=== PATIENT | female | born 1965 | race Caucasian/White ===

== ENCOUNTER 2016-04-27 09:45 | Emergency (ER) | payer SELFPAY ==
[2016-04-27] MEDS ORDERED: IPRATROPIUM 0.5MG/ALBUTEROL 2.5MG INH SOL UD 3ML (DUONEB)(J7620) As Ordered ONE (10:16)
[2016-04-27 10:49] LABS: BASO # 0.1 K/mm3 (0.0-0.2); BASO % 0.7 % (0.0-1.0); EOS # 0.2 K/mm3 (0.0-0.50); EOS % 2.2 % (0.0-3.0); LARGE UNSTAINED CELL # 0.1 K/mm3 (0.0-0.4); LARGE UNSTAINED CELL % 1.3 % (0.0-4.0); LYMPH % 18.5 % (24.0-44.0); MEAN CORPUSCULAR HEMOGLOBIN 29.8 pg (27.0-33.0); MEAN CORPUSCULAR HGB CONC 32.6 g/dl (32.0-36.5); MEAN CORPUSCULAR VOLUME 91.4 fl (80.0-96.0); MONO # 0.5 K/mm3 (0.0-0.8); MONO % 4.3 % (0.0-5.0); PLATELET COUNT, AUTOMATED 329 k/mm3 (150-450); RED CELL DISTRIBUTION WIDTH 12.2 % (11.5-14.5); WHITE BLOOD COUNT 10.9 K/mm3 (4.0-10.0)
[2016-04-27 11:06] LABS: ANION GAP 9 MEQ/L (8-16); BLOOD UREA NITROGEN 14 MG/DL (7-18); CALCIUM LEVEL 10.1 MG/DL (8.5-10.1); CARBON DIOXIDE LEVEL 30 MEQ/L (21-32); CHLORIDE LEVEL 103 MEQ/L (98-107); CREATININE FOR GFR 0.79 MG/DL (0.55-1.02); GLOMERULAR FILTRATION RATE > 60.0 (>58); GLUCOSE, FASTING 136 MG/DL (70-105); POTASSIUM SERUM 3.6 MEQ/L (3.5-5.1); SODIUM LEVEL 142 MEQ/L (136-145)
[2016-04-27] MEDS ORDERED: methylPREDNISolone INJ 125 MG/2 ML VIAL (J2930) As Ordered ONE (11:21)
--- NOTE | 2016-04-27 12:50 | EDDOCDS ---
Nurse's Notes [facility] Name: Adriana Sanchez Age: 50 yrs Sex: Female : 1965 Arrival Date: 04/27/2016 Time: 09:45 Bed I8 / 16 Private MD: No Pcp Diagnosis: Moderate persistent asthma with (acute) exacerbation-vs possible COPD exaccerbation Presentation: 04/27 09:49 Presenting complaint: Patient states: she has had dizziness, wheezing, shortness of kcs breath an difficulty breathing for 2 years. Borrows her sisters inhalers. Has not been treated because she harding not have insurance and cannot afford medical care. Adult Sepsis Screening: The patient does not have new or worsening altered mentation. Patient's respiratory rate is less than 22. Systolic blood pressure is greater than 100. Patient has a qSOFA score of 0- Negative Sepsis Screen. Suicide/Homicide risk assessment- the patient denies having any suicidal and/or homicidal ideations and does not present with any other emotional, behavioral or mental health complaints. Status: Patient is not a automatic teller machine servicer or dependent. Transition of care: patient was not received from another setting of care. 09:49 Acuity: PRESLEY Level 3 kcs 09:49 Method Of Arrival: Wheelchair kcs Triage Assessment: 09:52 General: Appears comfortable, well developed, well nourished, well groomed, Behavior is kcs anxious, cooperative, pleasant. Pain: Location: chest Pain currently is 6 out of 10 on a pain scale. Pain: Quality of pain is described as tight. Pt Declines HIV testing. Neurological: Level of Consciousness is awake, alert. Respiratory: Airway is patent Respiratory effort is labored, Respiratory pattern is regular, symmetrical. Derm: Skin is intact, is healthy with good turgor, Skin is dry, Skin is normal. 12:41 Respiratory: Onset: The symptoms/episode began/occurred 2 YEARS. hs1 INTERNIST: 09:52 LMP N/A - Post-menopause kcs Historical: - Allergies: No known drug Allergies; - Home Meds: 1. Albuterol Inhl 2 puffs 4 times per day and as needed - PMHx: Asthma; Arthritis; - PSHx: ; Tonsillectomy; Adenoidectomy; - Social history: Smoking status: Patient uses tobacco products, light tobacco smoker. No barriers to communication noted, The patient speaks fluent Mozambican. - Family history: No immediate family members are acutely ill. - : The pt / caregiver states he / she is not on anticoagulants. Home medication list is obtained from the patient. - Exposure Risk Screening:: None identified. Screenin:28 Screening information is obtained from the patient. Fall risk: No risks identified. hs1 Assistance ADL's: requires no assistance with activities of daily living. Abuse/DV Screen: The patient / caregiver reports he/she is: not in a situation that causes fear, pain or injury. Nutritional screening: No deficits noted. Advance Directives: There is no active DNR order. home support is adequate. Assessment: 11:29 General: Behavior is appropriate for age, cooperative. Pain: Denies pain. hs1 Cardiovascular: Rhythm is sinus tachycardia No ectopy. Cardiovascular: Capillary refill < 3 seconds Heart tones S1 S2 present Edema is absent. Cardiovascular: Chest pain is denied. Respiratory: Airway is patent Respiratory effort is even, unlabored, Respiratory pattern is regular, symmetrical, Respiratory: Reports shortness of breath on exertion pt reports has gotten better since breathing treatments. 12:26 Reassessment: Patient appears in no apparent distress at this time. Patient states hs1 feeling better. Patient states symptoms have improved. Adult Sepsis Screening: The patient does not have new or worsening altered mentation. Patient's respiratory rate is less than 22. Systolic blood pressure is greater than 100. Patient has a qSOFA score of 0- Negative Sepsis Screen. Respiratory: Airway is patent Respiratory effort is even, unlabored, Respiratory pattern is regular, symmetrical. 12:39 Reassessment: Patient appears in no apparent distress at this time. Patient states hs1 feeling better. Patient states symptoms have improved. Vital Signs: 09:47 BP 147 / 89; Pulse 136; Resp 22; Temp 97.6; Pulse Ox 96% ; Weight 79.38 kg; Height 5 cmb ft. 3 in. (160.02 cm); Pain 5/10; 11:13 BP 127 / 71 (auto/); hs1 11:14 Pulse 116 MON; Pulse Ox 95% ; hs1 11:28 BP 120 / 71 (auto/); hs1 11:28 Pulse 114 MON; Pulse Ox 95% ; hs1 11:43 BP 116 / 65 (auto/); hs1 11:43 Pulse 120 MON; Pulse Ox 93% ; hs1 11:58 BP 128 / 69 (auto/); hs1 11:58 Pulse 118 MON; Pulse Ox 93% ; hs1 12:39 BP 143 / 84; Pulse 117; Resp 18; Temp 98.3(O); Pulse Ox 95% ; Pain 0/10; hs1 09:47 Body Mass Index 31.00 (79.38 kg, 160.02 cm) cmb Vitals: 09:47 Log In Time: April 27, 2016 at 09:45. cmb ED Course: 09:46 Patient visited by Yuki Ray. cmb 09:46 Patient moved to Waiting cmb 09:47 No Pcp is Private Physician. cmb 09:49 Patient moved to Pre RCE cmb 09:51 Triage Initiated kcs 09:55 Patient moved to Triage 2 kcs 10:00 Maximino Fenton PA-C is PHCP. ar2 10:00 Justine Zamorano MD is Attending Physician. ar2 10:00 Patient visited by Maximino Fenton PA-C. ar2 10:15 Patient moved to PR2 / 26 bcj 10:24 MED Profile Sent. kcs 10:24 CBC with Diff Sent. kcs 10:57 EKG done. (by ED staff). Reviewed by Maximino Fenton PA-C. ar3 11:00 Inserted saline lock: 20 gauge in left antecubital area and blood collected. The hs1 patient tolerated the procedure well. 11:07 Patient moved to I8 / 16 bcj 11:20 Patient visited by Dianne Roman RN. hs1 11:20 D-Dimer Quant Sent. hs1 11:53 Patient name changed from Adriana\S\J\S\Faibish\S\ to Adriana\S\Mykel\S\Faibish. EDMS 11:57 [place] [place] Agreement was scanned into [employer] and attached to record. lg 12:26 Patient visited by Dianne Roman RN. hs1 12:37 [facility] is Referral Physician. ar2 12:40 The patient / caregiver is instructed regarding the plan of care and ED course. hs1 12:40 Discontinued IV lock intact, bleeding controlled, pressure dressing applied, No hs1 redness/swelling at site. No procedures done that require assistance. Administered Medications: 10:10 Drug: Albuterol-Ipratropium 1 neb [ipratropium-albuterol 0.5 mg-3 mg(2.5 mg base)/3 mL kt1 nebulization soln (1 neb)] Route: Nebulizer; 10:36 Drug: Albuterol-Ipratropium 1 neb [ipratropium-albuterol 0.5 mg-3 mg(2.5 mg base)/3 mL kt1 nebulization soln (1 neb)] Route: Nebulizer; 10:45 Drug: Albuterol-Ipratropium 1 neb [ipratropium-albuterol 0.5 mg-3 mg(2.5 mg base)/3 mL kt1 nebulization soln (1 neb)] Route: Nebulizer; 11:28 Drug: Solu-MEDROL 125 mg [Solu-Medrol 500 mg intravenous solution (125 mg)] Route: IVP; hs1 Site: left antecubital; RT: 10:05 Patient Effort moderate Pre Peak Flow: 150. kt1 10:10 Initial Med Neb Given as ordered Patient was instructed and evaluated on procedure. kt1 Respiratory: Breath sounds are diminished bilaterally. 10:29 Patient Education: pre peak flow 69% perdicted. kt1 10:37 Subsequent Med Neb Given as ordered. Respiratory: Breath sounds are diminished kt1 bilaterally. 10:45 Post Peak Flow: 150. kt1 Order Results: Lab Order: CBC with Diff; SPEC'M 04/27/16 10:23 Test: WHITE BLOOD COUNT; Value: 10.9; Range: 4.0-10.0; Abnormal: Above high normal; Units: K/mm3; Status: F Test: RED BLOOD COUNT; Value: 4.89; Range: 4.00-5.40; Units: M/mm3; Status: F Test: HEMOGLOBIN; Value: 14.6; Range: 12.0-16.0; Units: g/dl; Status: F Test: HEMATOCRIT; Value: 44.7; Range: 36.0-47.0; Units: %; Status: F Test: MEAN CORPUSCULAR VOLUME; Value: 91.4; Range: 80.0-96.0; Units: fl; Status: F Test: MEAN CORPUSCULAR HEMOGLOBIN; Value: 29.8; Range: 27.0-33.0; Units: pg; Status: F Test: MEAN CORPUSCULAR HGB CONC; Value: 32.6; Range: 32.0-36.5; Units: g/dl; Status: F Test: RED CELL DISTRIBUTION WIDTH; Value: 12.2; Range: 11.5-14.5; Units: %; Status: F Test: PLATELET COUNT, AUTOMATED; Value: 329; Range: 150-450; Units: k/mm3; Status: F Test: NEUTROPHILS %; Value: 73.0; Range: 36.0-66.0; Abnormal: Above high normal; Units: %; Status: F Test: LYMPH %; Value: 18.5; Range: 24.0-44.0; Abnormal: Below low normal; Units: %; Status: F Test: MONO %; Value: 4.3; Range: 0.0-5.0; Units: %; Status: F Test: EOS %; Value: 2.2; Range: 0.0-3.0; Units: %; Status: F Test: BASO %; Value: 0.7; Range: 0.0-1.0; Units: %; Status: F Test: LARGE UNSTAINED CELL %; Value: 1.3; Range: 0.0-4.0; Units: %; Status: F Test: NEUTROPHILS #; Value: 8.0; Range: 1.8-7.7; Abnormal: Above high normal; Units: K/mm3; Status: F Test: LYMPH #; Value: 2.0; Range: 1.5-4.5; Units: K/mm3; Status: F Test: MONO #; Value: 0.5; Range: 0.0-0.8; Units: K/mm3; Status: F Test: EOS #; Value: 0.2; Range: 0.0-0.50; Units: K/mm3; Status: F Test: BASO #; Value: 0.1; Range: 0.0-0.2; Units: K/mm3; Status: F Test: LARGE UNSTAINED CELL #; Value: 0.1; Range: 0.0-0.4; Units: K/mm3; Status: F Lab Order: MED Profile; SPEC'M 01/03/17 10:23 Test: GLUCOSE, FASTING; Value: 136; Range: 70-105; Abnormal: Above high normal; Units: MG/DL; Status: F Test: BLOOD UREA NITROGEN; Value: 14; Range: 7-18; Units: MG/DL; Status: F Test: CREATININE FOR GFR; Value: 0.79; Range: 0.55-1.02; Units: MG/DL; Status: F Test: GLOMERULAR FILTRATION RATE; Value: > 60.0; Range: >58; Status: F Test: SODIUM LEVEL; Value: 142; Range: 136-145; Units: MEQ/L; Status: F Test: POTASSIUM SERUM; Value: 3.6; Range: 3.5-5.1; Units: MEQ/L; Status: F Test: CHLORIDE LEVEL; Value: 103; Range: 98-107; Units: MEQ/L; Status: F Test: CARBON DIOXIDE LEVEL; Value: 30; Range: 21-32; Units: MEQ/L; Status: F Test: ANION GAP; Value: 9; Range: 8-16; Units: MEQ/L; Status: F Test: CALCIUM LEVEL; Value: 10.1; Range: 8.5-10.1; Units: MG/DL; Status: F Test Note: ; Units are mL/min/1.73 m2 Chronic Kidney Disease Staging per NKF: Stage I & II GFR >=60 Normal to Mildly Decreased Stage III GFR 30-59 Moderately Decreased Stage IV GFR 15-29 Severely Decreased Stage V GFR <15 Very Little GFR Left ESRD GFR <15 on SHIFT LAB TECHNICIAN Lab Order: D-Dimer Quant; SPEC'M 04/27/16 11:20 Test: D-DIMER QUANT; Value: < 270.0; Range: <500; Units: ng/ml; Status: F Lab Order: Troponin; SPEC'M 04/27/16 10:23 Test: TROPONIN I; Value: < 0.02; Range: < 0.10; Units: NG/ML; Status: F Test Note: ; Troponin I Reference Interval for [employer] LOCI: 99th Percentile= 0.00-0.045 ng/ml Risk Stratification: <= 0.10 ng/ml Decreased Risk for Adverse Clinical Events. 0.10-1.50 ng/ml Increased Risk for Adverse Clinical Events. Evaluation of additional criterion and/or repeat testing in 2-6 hours is suggested to rule out myocardial damage. >= 1.50 ng/ml Indicative of Myocardial Injury. Lab Order: ASHLYN MOELLER'Rita 04/27/16 10:23 Test: CPK CREATINE PHOSPHOKINASE; Value: 65; Range: 26-192; Units: U/L; Status: F Test: CK-MB VALUE MASS; Value: 1.4; Range: 0.0-3.6; Units: NG/ML; Status: F Test: MB/CK RELATIVE INDEX; Value: 2.15; Range: < OR =4; Status: F Test Note: ; DIAGNOSIS CRITERIA MMB ng/ml Relative Index (RI) NON-AMI < or = 5 N/A ROSALES ZONE > 5 < or = 4 AMI > 5 > 4 Outcome: 12:38 Discharge ordered by Provider. ar2 12:40 Discharge Assessment: Patient awake, alert and oriented x 3. No cognitive and/or hs1 functional deficits noted. Patient verbalized understanding of disposition instructions. patient administered narcotics - no. The following High Risk Discharge criteria are identified: None. Discharged to home ambulatory, with significant other. Condition: stable. Discharge instructions given to patient, family, Demonstrated understanding of instructions, medications, Pt was receptive of discharge instructions/ teaching. No special radiology studies were completed. Property sent home with patient. 12:49 Patient left the ED. hs1 Signatures: Dispatcher [employer] EDTiarra Daley RN RN kcs Johnson, Bruce, RN RN bcj Ganter, LoriLee, Sarah Walsh lg kt1 Maximino Fenton PA-C PA-Steve ar2 Viri Hassan PCA DIVISION SUPERVISOR ar3 Dianne Roman RN RN hs1 Yuki Ray cmb Corrections: (The following items were deleted from the chart) 09:49 09:47 BP 147 / 89; Pulse 136bpm; Resp 24bpm; cmb cmb 10:31 10:29 Patient Effort moderate Pre Peak Flow: 150. kt1 kt1 MTDD
--- NOTE | 2016-04-27 12:50 | EDDOCDS ---
Physician Documentation [facility] Name: Adriana Sanchez Age: 50 yrs Sex: Female : 1965 Arrival Date: 04/27/2016 Time: 09:45 Bed I8 / 16 Private MD: No Pcp Disposition: 04/27/16 12:38 Discharged to Home/Self Care. Impression: Moderate persistent asthma with (acute) exacerbation - vs possible COPD exaccerbation. - Condition is Stable. - Discharge Instructions: Asthma, Adult, Chronic Obstructive Pulmonary Disease, How to Use an Inhaler, Smoking Cessation. - Prescriptions for Prednisone 20 mg Oral Tablet - take 1 tablet by ORAL route as directed Day 1-3: 3 po, day 4-7: 2 po, day 8-10: 1 po; 20 tablet. benzonatate 200 mg Oral Capsule - take 1 capsule by ORAL route 3 times per day As needed; 30 capsule. Advair Diskus 250- 50 mcg/dose - inhale 1 blisters by INHALATION route 2 times per day; 1 unit. Albuterol Sulfate 90 mcg/actuation Inhalation HFA Aerosol Inhaler - inhale 2 puff by INHALATION route every 4 hours As needed; 1 Inhaler. - Medication Reconciliation, Local Pharmacy Hours form. - Follow up: Emergency Department; When: As needed; Reason: Trouble breathing, Worsening of conditions. [facility]: [facility]; When: Call to arrange an appointment; Reason: Recheck today's complaints, To establish care. - Problem is new. - Symptoms have improved. Historical: - Allergies: No known drug Allergies; - Home Meds: 1. Albuterol Inhl 2 puffs 4 times per day and as needed - PMHx: Asthma; Arthritis; - PSHx: ; Tonsillectomy; Adenoidectomy; - Social history: Smoking status: Patient uses tobacco products, light tobacco smoker. No barriers to communication noted, The patient speaks fluent Tunisian. - Family history: No immediate family members are acutely ill. - : The pt / caregiver states he / she is not on anticoagulants. Home medication list is obtained from the patient. - Exposure Risk Screening:: None identified. 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 3 in. (160.02 cm); Pain 5/10; 11:13 BP 127 / 71 (auto/); hs1 11:14 Pulse 116 MON; Pulse Ox 95% ; hs1 11:28 BP 120 / 71 (auto/); hs1 11:28 Pulse 114 MON; Pulse Ox 95% ; hs1 11:43 BP 116 / 65 (auto/); hs1 11:43 Pulse 120 MON; Pulse Ox 93% ; hs1 11:58 BP 128 / 69 (auto/); hs1 11:58 Pulse 118 MON; Pulse Ox 93% ; hs1 12:39 BP 143 / 84; Pulse 117; Resp 18; Temp 98.3(O); Pulse Ox 95% ; Pain 0/10; hs1 09:47 Body Mass Index 31.00 (79.38 kg, 160.02 cm) cmb MDM: 10:06 Albuterol-Ipratropium 1 neb Nebulizer every 20 minutes x3 ordered. ar2 10:06 Peak Flow Pre & Post ordered. ar2 10:07 ECG WITH READING ER PHYS+CARDIAG ordered. EDMS 10:07 Chest, 2 View (pa\E\lat) Ordered. EDMS 10:08 CBC with Diff Ordered. EDMS 10:08 MED Profile Ordered. EDMS 10:12 Financial registration complete. lg 10:26 Peak Flow Pre & Post complete. kt1 10:59 CBC with Diff Reviewed. ar2 11:03 IV Saline Lock ordered. ar2 11:03 Solu-MEDROL 125 mg IVP once ordered. ar2 11:03 Edge Inker/Pulse Ox/q 15 min VS ordered. ar2 11:04 D-Dimer Quant Ordered. EDMS 11:04 Troponin Ordered. EDMS 11:04 CIP Ordered. EDMS 11:57 [facility] Payment Agreement was scanned into [employer] and attached to record. lg 12:00 MED Profile Reviewed. ar2 12:00 D-Dimer Quant Reviewed. ar2 12:00 Troponin Reviewed. ar2 12:00 CIP Reviewed. ar2 Administered Medications: 10:10 Drug: Albuterol-Ipratropium 1 neb [ipratropium-albuterol 0.5 mg-3 mg(2.5 mg base)/3 mL kt1 nebulization soln (1 neb)] Route: Nebulizer; 10:36 Drug: Albuterol-Ipratropium 1 neb [ipratropium-albuterol 0.5 mg-3 mg(2.5 mg base)/3 mL kt1 nebulization soln (1 neb)] Route: Nebulizer; 10:45 Drug: Albuterol-Ipratropium 1 neb [ipratropium-albuterol 0.5 mg-3 mg(2.5 mg base)/3 mL kt1 nebulization soln (1 neb)] Route: Nebulizer; 11:28 Drug: Solu-MEDROL 125 mg [Solu-Medrol 500 mg intravenous solution (125 mg)] Route: IVP; hs1 Site: left antecubital; Signatures: Dispatcher [employer] Tiarra Ma RN RN kcs Luisa Lezama, Robby Reg lg Sarah Sheets kt1 Maximino Fenton PA-C PA-C ar2 Dianne Roman RN RN hs1 The chart was reviewed and I authenticate all verbal orders and agree with the evaluation and treatment provided.Attachments: 11:57 [facility] Payment Agreement lg MTDD
[2016-04-27] MEDS ORDERED: ASPIRIN 81 MG CHEW TABLET As Ordered ONE (14:29)
--- NOTE | 2016-04-27 16:08 | REP ---
CHEST, TWO VIEWS: COMPARISONS: None. There is no evidence of acute infiltrate. No pleural effusion is seen. The heart is normal in size. The mediastinal silhouette is unremarkable. The visualized osseous structures are intact. IMPRESSION: No acute pulmonary disease. Signed by Doe Dobbins MD 04/28/2016 05:07 P
--- NOTE | 2016-04-28 19:38 | ECGEPIP ---
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 Order Number: [id number] Reading MD: Justine Zamorano Measurements Intervals [place] Rate: 114 P: 42 NM: 136 QRS: 58 QRSD: 82 T: 66 QT: 305 QTc: 422 Interpretive Statements SINUS TACHYCARDIA POSSIBLE LEFT ATRIAL ENLARGEMENT POSSIBLE LEFT VENTRICULAR HYPERTROPHY NO PRIOR FOR COMPARISON Electronically Signed On 04-28-2016 19:38:12 EST by Justine Zamorano
--- NOTE | 2016-04-29 13:50 | EDDOCDS ---
Physician Documentation [facility] Name: Adriana Sanchez Age: 50 yrs Sex: Female : 1965 Arrival Date: 04/27/2016 Time: 09:45 Bed I8 / 16 Private MD: No Pcp Disposition: 04/27/16 12:38 Discharged to Home/Self Care. Impression: Moderate persistent asthma with (acute) exacerbation - vs possible COPD exaccerbation. - Condition is Stable. - Discharge Instructions: Asthma, Adult, Chronic Obstructive Pulmonary Disease, How to Use an Inhaler, Smoking Cessation. - Prescriptions for Prednisone 20 mg Oral Tablet - take 1 tablet by ORAL route as directed Day 1-3: 3 po, day 4-7: 2 po, day 8-10: 1 po; 20 tablet. benzonatate 200 mg Oral Capsule - take 1 capsule by ORAL route 3 times per day As needed; 30 capsule. Advair Diskus 250- 50 mcg/dose - inhale 1 blisters by INHALATION route 2 times per day; 1 unit. Albuterol Sulfate 90 mcg/actuation Inhalation HFA Aerosol Inhaler - inhale 2 puff by INHALATION route every 4 hours As needed; 1 Inhaler. - Medication Reconciliation, Local Pharmacy Hours form. - Follow up: Emergency Department; When: As needed; Reason: Trouble breathing, Worsening of conditions. Follow [facility]: [facility]; When: Call to arrange an appointment; Reason: Recheck today's complaints, To establish care. - Problem is new. - Symptoms have improved. Historical: - Allergies: No known drug Allergies; - Home Meds: 1. Albuterol Inhl 2 puffs 4 times per day and as needed - PMHx: Asthma; Arthritis; - PSHx: ; Tonsillectomy; Adenoidectomy; - Social history: Smoking status: Patient uses tobacco products, light tobacco smoker. No barriers to communication noted, The patient speaks fluent Cook Islander. - Family history: No immediate family members are acutely ill. - : The pt / caregiver states he / she is not on anticoagulants. Home medication list is obtained from the patient. - Exposure Risk Screening:: None identified. 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 3 in. (160.02 cm); Pain 5/10; 11:13 BP 127 / 71 (auto/); hs1 11:14 Pulse 116 MON; Pulse Ox 95% ; hs1 11:28 BP 120 / 71 (auto/); hs1 11:28 Pulse 114 MON; Pulse Ox 95% ; hs1 11:43 BP 116 / 65 (auto/); hs1 11:43 Pulse 120 MON; Pulse Ox 93% ; hs1 11:58 BP 128 / 69 (auto/); hs1 11:58 Pulse 118 MON; Pulse Ox 93% ; hs1 12:39 BP 143 / 84; Pulse 117; Resp 18; Temp 98.3(O); Pulse Ox 95% ; Pain 0/10; hs1 09:47 Body Mass Index 31.00 (79.38 kg, 160.02 cm) cmb MDM: 10:06 Albuterol-Ipratropium 1 neb Nebulizer every 20 minutes x3 ordered. ar2 10:06 Peak Flow Pre & Post ordered. ar2 10:07 ECG WITH READING ER PHYS+CARDIAG ordered. EDMS 10:07 Chest, 2 View (pa\E\lat) Ordered. EDMS 10:08 CBC with Diff Ordered. EDMS 10:08 MED Profile Ordered. EDMS 10:12 Financial registration complete. lg 10:26 Peak Flow Pre & Post complete. kt1 10:59 CBC with Diff Reviewed. ar2 11:03 IV Saline Lock ordered. ar2 11:03 Solu-MEDROL 125 mg IVP once ordered. ar2 11:03 Field Care Manager/Pulse Ox/q 15 min VS ordered. ar2 11:04 D-Dimer Quant Ordered. EDMS 11:04 Troponin Ordered. EDMS 11:04 CIP Ordered. EDMS 11:57 [facility] Payment Agreement was scanned into [employer] and attached to record. lg 12:00 MED Profile Reviewed. ar2 12:00 D-Dimer Quant Reviewed. ar2 12:00 Troponin Reviewed. ar2 12:00 CIP Reviewed. ar2 04/28 10:19 T-Sheet-- Draft Copy was scanned into [employer] and attached to record. gb 10:20 ECG/EKG was scanned into [employer] and attached to record. gb 10:20 Radiology Report was scanned into [employer] and attached to record. gb Administered Medications: 04/27 10:10 Drug: Albuterol-Ipratropium 1 neb [ipratropium-albuterol 0.5 mg-3 mg(2.5 mg base)/3 mL kt1 nebulization soln (1 neb)] Route: Nebulizer; 10:36 Drug: Albuterol-Ipratropium 1 neb [ipratropium-albuterol 0.5 mg-3 mg(2.5 mg base)/3 mL kt1 nebulization soln (1 neb)] Route: Nebulizer; 10:45 Drug: Albuterol-Ipratropium 1 neb [ipratropium-albuterol 0.5 mg-3 mg(2.5 mg base)/3 mL kt1 nebulization soln (1 neb)] Route: Nebulizer; 11:28 Drug: Solu-MEDROL 125 mg [Solu-Medrol 500 mg intravenous solution (125 mg)] Route: IVP; hs1 Site: left antecubital; Signatures: Dispatcher [employer] EDMS Tiarra Bishop, RN RN kcs Isela Terry, Reg Reg gb Luisa Lezama, Reg Reg lg Sarah Sheets kt1 Maximino Fenton PA-C PA-C ar2 Dianne Roman RN RN hs1 The chart was reviewed and I authenticate all verbal orders and agree with the evaluation and treatment provided.Attachments: 11:57 [facility] Payment Agreement lg 04/28 10:19 T-Sheet-- Draft Copy gb 10:20 ECG/EKG gb Chart Complete MTDD
--- NOTE | 2016-04-29 13:50 | EDDOCDS ---
Nurse's Notes [facility] Name: Adriana Aquino Age: 50 yrs Sex: Female : 1965 Arrival Date: 04/27/2016 Time: 09:45 Bed I8 / 16 Private MD: No Pcp Diagnosis: Moderate persistent asthma with (acute) exacerbation-vs possible COPD exaccerbation Presentation: 04/27 09:49 Presenting complaint: Patient states: she has had dizziness, wheezing, shortness of kcs breath an difficulty breathing for 2 years. Borrows her sisters inhalers. Has not been treated because she harding not have insurance and cannot afford medical care. Adult Sepsis Screening: The patient does not have new or worsening altered mentation. Patient's respiratory rate is less than 22. Systolic blood pressure is greater than 100. Patient has a qSOFA score of 0- Negative Sepsis Screen. Suicide/Homicide risk assessment- the patient denies having any suicidal and/or homicidal ideations and does not present with any other emotional, behavioral or mental health complaints. Status: Patient is not a automotive service professional or dependent. Transition of care: patient was not received from another setting of care. 09:49 Acuity: PRESLEY Level 3 kcs 09:49 Method Of Arrival: Wheelchair kcs Triage Assessment: 09:52 General: Appears comfortable, well developed, well nourished, well groomed, Behavior is kcs anxious, cooperative, pleasant. Pain: Location: chest Pain currently is 6 out of 10 on a pain scale. Pain: Quality of pain is described as tight. Pt Declines HIV testing. Neurological: Level of Consciousness is awake, alert. Respiratory: Airway is patent Respiratory effort is labored, Respiratory pattern is regular, symmetrical. Derm: Skin is intact, is healthy with good turgor, Skin is dry, Skin is normal. 12:41 Respiratory: Onset: The symptoms/episode began/occurred 2 YEARS. 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 Albuterol Inhl 2 puffs 4 times per day and as needed - PMHx: Asthma; Arthritis; - PSHx: ; Tonsillectomy; Adenoidectomy; - Social history: Smoking status: Patient uses tobacco products, light tobacco smoker. No barriers to communication noted, The patient speaks fluent Panamanian. - Family history: No immediate family members are acutely ill. - : The pt / caregiver states he / she is not on anticoagulants. Home medication list is obtained from the patient. - Exposure Risk Screening:: None identified. Screenin:28 Screening information is obtained from the patient. Fall risk: No risks identified. hs1 Assistance ADL's: requires no assistance with activities of daily living. Abuse/DV Screen: The patient / caregiver reports he/she is: not in a situation that causes fear, pain or injury. Nutritional screening: No deficits noted. Advance Directives: There is no active DNR order. home support is adequate. Assessment: 11:29 General: Behavior is appropriate for age, cooperative. Pain: Denies pain. hs1 Cardiovascular: Rhythm is sinus tachycardia No ectopy. Cardiovascular: Capillary refill < 3 seconds Heart tones S1 S2 present Edema is absent. Cardiovascular: Chest pain is denied. Respiratory: Airway is patent Respiratory effort is even, unlabored, Respiratory pattern is regular, symmetrical, Respiratory: Reports shortness of breath on exertion pt reports has gotten better since breathing treatments. 12:26 Reassessment: Patient appears in no apparent distress at this time. Patient states hs1 feeling better. Patient states symptoms have improved. Adult Sepsis Screening: The patient does not have new or worsening altered mentation. Patient's respiratory rate is less than 22. Systolic blood pressure is greater than 100. Patient has a qSOFA score of 0- Negative Sepsis Screen. Respiratory: Airway is patent Respiratory effort is even, unlabored, Respiratory pattern is regular, symmetrical. 12:39 Reassessment: Patient appears in no apparent distress at this time. Patient states hs1 feeling better. Patient states symptoms have improved. Vital Signs: 09:47 BP 147 / 89; Pulse 136; Resp 22; Temp 97.6; Pulse Ox 96% ; Weight 79.38 kg; Height 5 cmb ft. 3 in. (160.02 cm); Pain 5/10; 11:13 BP 127 / 71 (auto/); hs1 11:14 Pulse 116 MON; Pulse Ox 95% ; hs1 11:28 BP 120 / 71 (auto/); hs1 11:28 Pulse 114 MON; Pulse Ox 95% ; hs1 11:43 BP 116 / 65 (auto/); hs1 11:43 Pulse 120 MON; Pulse Ox 93% ; hs1 11:58 BP 128 / 69 (auto/); hs1 11:58 Pulse 118 MON; Pulse Ox 93% ; hs1 12:39 BP 143 / 84; Pulse 117; Resp 18; Temp 98.3(O); Pulse Ox 95% ; Pain 0/10; hs1 09:47 Body Mass Index 31.00 (79.38 kg, 160.02 cm) cmb Vitals: 09:47 Log In Time: April 27, 2016 at 09:45. cmb ED Course: 09:46 Patient visited by Yuki Ray. cmb 09:46 Patient moved to Waiting cmb 09:47 No Pcp is Private Physician. cmb 09:49 Patient moved to Pre RCE cmb 09:51 Triage Initiated kcs 09:55 Patient moved to Triage 2 kcs 10:00 Maximino Montoya PA-C is PHCP. ar2 10:00 Justine Zamorano MD is Attending Physician. ar2 10:00 Patient visited by Maximino Montoya PA-C. ar2 10:15 Patient moved to PR2 / bcj 10:24 MED Profile Sent. kcs 10:24 CBC with Diff Sent. kcs 10:57 EKG done. (by ED staff). Reviewed by Maximino Montoya PA-C. ar3 11:00 Inserted saline lock: 20 gauge in left antecubital area and blood collected. The hs1 patient tolerated the procedure well. 11:07 Patient moved to I8 / 16 j 11:20 Patient visited by Dianne Roman RN. hs1 11:20 D-Dimer Quant Sent. hs1 11:53 Patient name changed from Adriana\S\J\S\Faibish\S\ to Adriana\S\Mykel\S\Faibish. EDMS 11:57 [facility] Payment Agreement was scanned into [employer] and attached to record. lg 12:26 Patient visited by Dianne Roman RN. hs1 12:37 [facility] is Referral Physician. ar2 12:40 The patient / caregiver is instructed regarding the plan of care and ED course. hs1 12:40 Discontinued IV lock intact, bleeding controlled, pressure dressing applied, No hs1 redness/swelling at site. No procedures done that require assistance. 16:37 Chest, 2 View (pa\E\lat) Returned. EDMS 04/28 10:19 T-Sheet-- Draft Copy was scanned into [employer] and attached to record. gb 10:20 ECG/EKG was scanned into [employer] and attached to record. gb 10:20 Radiology Report was scanned into [employer] and attached to record. gb 20:05 EKG-ADULT Returned. EDMS Administered Medications: 04/27 10:10 Drug: Albuterol-Ipratropium 1 neb [ipratropium-albuterol 0.5 mg-3 mg(2.5 mg base)/3 mL kt1 nebulization soln (1 neb)] Route: Nebulizer; 10:36 Drug: Albuterol-Ipratropium 1 neb [ipratropium-albuterol 0.5 mg-3 mg(2.5 mg base)/3 mL kt1 nebulization soln (1 neb)] Route: Nebulizer; 10:45 Drug: Albuterol-Ipratropium 1 neb [ipratropium-albuterol 0.5 mg-3 mg(2.5 mg base)/3 mL kt1 nebulization soln (1 neb)] Route: Nebulizer; 11:28 Drug: Solu-MEDROL 125 mg [Solu-Medrol 500 mg intravenous solution (125 mg)] Route: IVP; hs1 Site: left antecubital; RT: 10:05 Patient Effort moderate Pre Peak Flow: 150. kt1 10:10 Initial Med Neb Given as ordered Patient was instructed and evaluated on procedure. kt1 Respiratory: Breath sounds are diminished bilaterally. 10:29 Patient Education: pre peak flow 69% perdicted. kt1 10:37 Subsequent Med Neb Given as ordered. Respiratory: Breath sounds are diminished kt1 bilaterally. 10:45 Post Peak Flow: 150. kt1 Order Results: Lab Order: CBC with Diff; SPEC'M 04/27/16 10:23 Test: WHITE BLOOD COUNT; Value: 10.9; Range: 4.0-10.0; Abnormal: Above high normal; Units: K/mm3; Status: F Test: RED BLOOD COUNT; Value: 4.89; Range: 4.00-5.40; Units: M/mm3; Status: F Test: HEMOGLOBIN; Value: 14.6; Range: 12.0-16.0; Units: g/dl; Status: F Test: HEMATOCRIT; Value: 44.7; Range: 36.0-47.0; Units: %; Status: F Test: MEAN CORPUSCULAR VOLUME; Value: 91.4; Range: 80.0-96.0; Units: fl; Status: F Test: MEAN CORPUSCULAR HEMOGLOBIN; Value: 29.8; Range: 27.0-33.0; Units: pg; Status: F Test: MEAN CORPUSCULAR HGB CONC; Value: 32.6; Range: 32.0-36.5; Units: g/dl; Status: F Test: RED CELL DISTRIBUTION WIDTH; Value: 12.2; Range: 11.5-14.5; Units: %; Status: F Test: PLATELET COUNT, AUTOMATED; Value: 329; Range: 150-450; Units: k/mm3; Status: F Test: NEUTROPHILS %; Value: 73.0; Range: 36.0-66.0; Abnormal: Above high normal; Units: %; Status: F Test: LYMPH %; Value: 18.5; Range: 24.0-44.0; Abnormal: Below low normal; Units: %; Status: F Test: MONO %; Value: 4.3; Range: 0.0-5.0; Units: %; Status: F Test: EOS %; Value: 2.2; Range: 0.0-3.0; Units: %; Status: F Test: BASO %; Value: 0.7; Range: 0.0-1.0; Units: %; Status: F Test: LARGE UNSTAINED CELL %; Value: 1.3; Range: 0.0-4.0; Units: %; Status: F Test: NEUTROPHILS #; Value: 8.0; Range: 1.8-7.7; Abnormal: Above high normal; Units: K/mm3; Status: F Test: LYMPH #; Value: 2.0; Range: 1.5-4.5; Units: K/mm3; Status: F Test: MONO #; Value: 0.5; Range: 0.0-0.8; Units: K/mm3; Status: F Test: EOS #; Value: 0.2; Range: 0.0-0.50; Units: K/mm3; Status: F Test: BASO #; Value: 0.1; Range: 0.0-0.2; Units: K/mm3; Status: F Test: LARGE UNSTAINED CELL #; Value: 0.1; Range: 0.0-0.4; Units: K/mm3; Status: F Lab Order: MED Profile; SPEC04/27/16 10:23 Test: GLUCOSE, FASTING; Value: 136; Range: 70-105; Abnormal: Above high normal; Units: MG/DL; Status: F Test: BLOOD UREA NITROGEN; Value: 14; Range: 7-18; Units: MG/DL; Status: F Test: CREATININE FOR GFR; Value: 0.79; Range: 0.55-1.02; Units: MG/DL; Status: F Test: GLOMERULAR FILTRATION RATE; Value: > 60.0; Range: >58; Status: F Test: SODIUM LEVEL; Value: 142; Range: 136-145; Units: MEQ/L; Status: F Test: POTASSIUM SERUM; Value: 3.6; Range: 3.5-5.1; Units: MEQ/L; Status: F Test: CHLORIDE LEVEL; Value: 103; Range: 98-107; Units: MEQ/L; Status: F Test: CARBON DIOXIDE LEVEL; Value: 30; Range: 21-32; Units: MEQ/L; Status: F Test: ANION GAP; Value: 9; Range: 8-16; Units: MEQ/L; Status: F Test: CALCIUM LEVEL; Value: 10.1; Range: 8.5-10.1; Units: MG/DL; Status: F Test Note: ; Units are mL/min/1.73 m2 Chronic Kidney Disease Staging per NKF: Stage I & II GFR >=60 Normal to Mildly Decreased Stage III GFR 30-59 Moderately Decreased Stage IV GFR 15-29 Severely Decreased Stage V GFR <15 Very Little GFR Left ESRD GFR <15 on 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 0.10-1.50 ng/ml Increased Risk for Adverse Clinical Events. Evaluation of additional criterion and/or repeat testing in 2-6 hours is suggested to rule out myocardial damage. >= 1.50 ng/ml Indicative of Myocardial Injury. Lab Order: CIP; SPEC'M 04/27/16 10:23 Test: CPK CREATINE PHOSPHOKINASE; Value: 65; Range: 26-192; Units: U/L; Status: F Test: CK-MB VALUE MASS; Value: 1.4; Range: 0.0-3.6; Units: NG/ML; Status: F Test: MB/CK RELATIVE INDEX; Value: 2.15; Range: < OR =4; Status: F Test Note: ; DIAGNOSIS CRITERIA MMB ng/ml Relative Index (RI) NON-AMI < or = 5 N/A DOBBINS ZONE > 5 < or = 4 AMI > 5 > 4 Radiology Order: EKG-ADULT Test: EKG-ADULT REASON FOR EXAMINATION: chest tightness; Stationary ECG Study; 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; : 1965 Requested By: MAXIMINO MONTOYA PA-C.; Order Number: [id number] Reading MD: Justine Zamorano; Measurements; Intervals [place]; Rate: 114 P: 42; AR: 136 QRS: 58; QRSD: 82 T: 66; QT: 305; QTc: 422; Interpretive Statements; SINUS TACHYCARDIA; POSSIBLE LEFT ATRIAL ENLARGEMENT; POSSIBLE LEFT VENTRICULAR HYPERTROPHY; NO PRIOR FOR COMPARISON; Electronically Signed On 04-28-2016 19:38:12 EST by Justine Zamorano; Radiology Order: Chest, 2 View (pa\E\lat) Test: Chest, 2 View (pa\E\lat) REASON FOR EXAMINATION: SOB; CHEST, TWO VIEWS:; ; COMPARISONS: None.; ; There is no evidence of acute infiltrate.; ; No pleural effusion is seen.; ; The heart is normal in size.; ; The mediastinal silhouette is unremarkable.; ; The visualized osseous structures are intact.; ; IMPRESSION:; ; No acute pulmonary disease.; ; ; Signed by; Doe Dobbins MD 04/28/2016 05:07 P; Outcome: 12:38 Discharge ordered by Provider. ar2 12:40 Discharge Assessment: Patient awake, alert and oriented x 3. No cognitive and/or hs1 functional deficits noted. Patient verbalized understanding of disposition instructions. patient administered narcotics - no. The following High Risk Discharge criteria are identified: None. Discharged to home ambulatory, with significant other. Condition: stable. Discharge instructions given to patient, family, Demonstrated understanding of instructions, medications, Pt was receptive of discharge instructions/ teaching. No special radiology studies were completed. Property sent home with patient. 12:49 Patient left the ED. hs1 Signatures: Dispatcher [employer] EDMS Tiarra Bishop RN RN kcs Johnson, Bruce, RN RN bcj Barnhardt, Gloria, Reg Reg gb Luisa Lezama, Reg Reg lg Sarah Sheets kt1 Maximino Montoya PA-C PADorian ar2 Viri Hassan, CHRISTOPHER GIFT SHOP MANAGER ar3 Dianne Roman RN RN hs1 Yuki Ray cmb Corrections: (The following items were deleted from the chart) 09:49 09:47 BP 147 / 89; Pulse 136bpm; Resp 24bpm; cmb cmb 10:31 10:29 Patient Effort moderate Pre Peak Flow: 150. kt1 kt1 Chart Complete MTDD
--- NOTE | 2016-04-29 13:50 | EDDOCDS ---
Physician Documentation [facility] Name: Adriana Sanchez Age: 50 yrs Sex: Female : 1965 Arrival Date: 04/27/2016 Time: 09:45 Bed I8 / 16 Private MD: No Pcp Disposition: 04/27/16 12:38 Discharged to Home/Self Care. Impression: Moderate persistent asthma with (acute) exacerbation - vs possible COPD exaccerbation. - Condition is Stable. - Discharge Instructions: Asthma, Adult, Chronic Obstructive Pulmonary Disease, How to Use an Inhaler, Smoking Cessation. - Prescriptions for Prednisone 20 mg Oral Tablet - take 1 tablet by ORAL route as directed Day 1-3: 3 po, day 4-7: 2 po, day 8-10: 1 po; 20 tablet. benzonatate 200 mg Oral Capsule - take 1 capsule by ORAL route 3 times per day As needed; 30 capsule. Advair Diskus 250- 50 mcg/dose - inhale 1 blisters by INHALATION route 2 times per day; 1 unit. Albuterol Sulfate 90 mcg/actuation Inhalation HFA Aerosol Inhaler - inhale 2 puff by INHALATION route every 4 hours As needed; 1 Inhaler. - Medication Reconciliation, Local Pharmacy Hours form. - Follow up: Emergency Department; When: As needed; Reason: Trouble breathing, Worsening of conditions. Follow [facility]: [facility]; When: Call to arrange an appointment; Reason: Recheck today's complaints, To establish care. - Problem is new. - Symptoms have improved. Historical: - Allergies: No known drug Allergies; - Home Meds: 1. Albuterol Inhl 2 puffs 4 times per day and as needed - PMHx: Asthma; Arthritis; - PSHx: ; Tonsillectomy; Adenoidectomy; - Social history: Smoking status: Patient uses tobacco products, light tobacco smoker. No barriers to communication noted, The patient speaks fluent Lao. - Family history: No immediate family members are acutely ill. - : The pt / caregiver states he / she is not on anticoagulants. Home medication list is obtained from the patient. - Exposure Risk Screening:: None identified. 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 3 in. (160.02 cm); Pain 5/10; 11:13 BP 127 / 71 (auto/); hs1 11:14 Pulse 116 MON; Pulse Ox 95% ; hs1 11:28 BP 120 / 71 (auto/); hs1 11:28 Pulse 114 MON; Pulse Ox 95% ; hs1 11:43 BP 116 / 65 (auto/); hs1 11:43 Pulse 120 MON; Pulse Ox 93% ; hs1 11:58 BP 128 / 69 (auto/); hs1 11:58 Pulse 118 MON; Pulse Ox 93% ; hs1 12:39 BP 143 / 84; Pulse 117; Resp 18; Temp 98.3(O); Pulse Ox 95% ; Pain 0/10; hs1 09:47 Body Mass Index 31.00 (79.38 kg, 160.02 cm) cmb MDM: 10:06 Albuterol-Ipratropium 1 neb Nebulizer every 20 minutes x3 ordered. ar2 10:06 Peak Flow Pre & Post ordered. ar2 10:07 ECG WITH READING ER PHYS+CARDIAG ordered. EDMS 10:07 Chest, 2 View (pa\E\lat) Ordered. EDMS 10:08 CBC with Diff Ordered. EDMS 10:08 MED Profile Ordered. EDMS 10:12 Financial registration complete. lg 10:26 Peak Flow Pre & Post complete. kt1 10:59 CBC with Diff Reviewed. ar2 11:03 IV Saline Lock ordered. ar2 11:03 Solu-MEDROL 125 mg IVP once ordered. 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 ar2 11:04 D-Dimer Quant Ordered. EDMS 11:04 Troponin Ordered. EDMS 11:04 CIP Ordered. EDMS 11:57 [facility] Payment Agreement was scanned into [employer] and attached to record. lg 12:00 MED Profile Reviewed. ar2 12:00 D-Dimer Quant Reviewed. ar2 12:00 Troponin Reviewed. ar2 12:00 CIP Reviewed. ar2 04/28 10:19 T-Sheet-- Draft Copy was scanned into [employer] and attached to record. gb 10:20 ECG/EKG was scanned into [employer] and attached to record. gb 10:20 Radiology Report was scanned into [employer] and attached to record. gb Administered Medications: 04/27 10:10 Drug: Albuterol-Ipratropium 1 neb [ipratropium-albuterol 0.5 mg-3 mg(2.5 mg base)/3 mL kt1 nebulization soln (1 neb)] Route: Nebulizer; 10:36 Drug: Albuterol-Ipratropium 1 neb [ipratropium-albuterol 0.5 mg-3 mg(2.5 mg base)/3 mL kt1 nebulization soln (1 neb)] Route: Nebulizer; 10:45 Drug: Albuterol-Ipratropium 1 neb [ipratropium-albuterol 0.5 mg-3 mg(2.5 mg base)/3 mL kt1 nebulization soln (1 neb)] Route: Nebulizer; 11:28 Drug: Solu-MEDROL 125 mg [Solu-Medrol 500 mg intravenous solution (125 mg)] Route: IVP; hs1 Site: left antecubital; Signatures: Dispatcher [employer] EDMS Tiarra Bishop, RN RN kcs Isela Terry, Reg Reg gb Luisa Lezama, Reg Reg lg Sarah Sheets kt1 Maximino Fenton PA-C PA-C ar2 Dianne Roman RN RN hs1 The chart was reviewed and I authenticate all verbal orders and agree with the evaluation and treatment provided.Attachments: 11:57 [facility] Payment Agreement lg 04/28 10:19 T-Sheet-- Draft Copy gb 10:20 ECG/EKG gb Chart Complete MTDD
== END 2016-04-27 12:49 | disposition home or self-care (01) ==
LOC: M ED 09:45
DX: J45.901 Unspecified asthma with (acute) exacerbation (principal); M12.9 Arthropathy, unspecified; F17.210 Nicotine dependence, cigarettes, uncomplicated; Z79.51 Long term (current) use of inhaled steroids
CPT/HCPCS: 36415; 71020; 80048; 82550; 82553; 85025; 85379; 93005; 93041; 94640; 96374; 99284; J2930

== ENCOUNTER 2016-12-06 14:40 | Emergency (ER) | payer MEDICAID, SELFPAY ==
[~2016-12-06] VITALS: Ht 157.5 cm; Wt 74.1 kg
[2016-12-06 14:40] VITALS: BP 115/79
[2016-12-06] MEDS ORDERED: AMOX500C PO (15:59)
== END 2016-12-06 16:07 | disposition home or self-care (01) ==
LOC: M ED 14:40
DX: J02.9 Acute pharyngitis, unspecified (principal); Z87.891 Personal history of nicotine dependence

== ENCOUNTER → 2017-01-05 | Outpatient (CLI) | payer MEDICAID, SELFPAY ==
[~2017-01-05] MED LIST: AMOX500C PO
== END ==
LOC: M OUTALCOH 07:52
PROVIDERS: ATTEND Psychiatry & Neurology Psychiatry
DX: Z03.89 Encounter for observation for other suspected diseases and conditions ruled out (principal)

== ENCOUNTER 2017-02-21 16:00 | Outpatient (RCR) | payer MEDICAID, SELFPAY | END 2017-02-22 | LOC: M OUTALCOH 16:00 | PROVIDERS: ATTEND Psychiatry & Neurology Psychiatry | DX: F14.10 Cocaine abuse, uncomplicated (principal) ==

== ENCOUNTER 2017-03-02 16:00 | Outpatient (RCR) | payer MEDICAID | END 2017-03-24 | LOC: M OUTALCOH 16:00 | PROVIDERS: ATTEND Psychiatry & Neurology Psychiatry | DX: F14.10 Cocaine abuse, uncomplicated (principal) ==

== ENCOUNTER → 2017-03-14 | Outpatient (REF) | payer MEDICAID, OTHER ==
[2017-03-14 14:02] LABS: BASO % 0.6 % (0.0-1.0); EOS # 0.3 10^3/uL (0.0-0.50); EOS % 3.9 % (0.0-3.0); IMMATURE GRANULOCYTE % 0.1 % (0-0); LYMPH # 3.1 10^3/uL (1.5-4.5); LYMPH % 45.3 % (24.0-44.0); MEAN CORPUSCULAR HGB CONC 32.3 g/dl (32.0-36.5); MEAN CORPUSCULAR VOLUME 89.8 fl (80.0-96.0); MONO # 0.4 10^3/uL (0.0-0.8); MONO % 6.2 % (0.0-5.0); NEUTROPHILS % 43.9 % (36.0-66.0); PLATELET COUNT, AUTOMATED 352 10^3/uL (150-450); RED CELL DISTRIBUTION WIDTH 12.2 % (11.5-14.5); WHITE BLOOD COUNT 6.7 10^3/uL (4.0-10.0)
[2017-03-14 14:54] LABS: ALBUMIN 3.6 GM/DL (3.2-5.2); ALBUMIN/GLOBULIN RATIO 1.03 (1.00-1.93); ALKALINE PHOSPHATASE 95 U/L (45-117); ALT/SGPT 46 U/L (12-78); ANION GAP 5 MEQ/L (8-16); AST/SGOT 20 U/L (7-37); BILIRUBIN,TOTAL 0.4 MG/DL (0.2-1.0); BLOOD UREA NITROGEN 12 MG/DL (7-18); CALCIUM LEVEL 9.1 MG/DL (8.5-10.1); CARBON DIOXIDE LEVEL 31 MEQ/L (21-32); CHLORIDE LEVEL 106 MEQ/L (98-107); CHOLESTEROL LEVEL 223 MG/DL (<200); CREATININE FOR GFR 0.61 MG/DL (0.55-1.02); GLOMERULAR FILTRATION RATE > 60.0 (>58); GLUCOSE, FASTING 91 MG/DL (70-105); POTASSIUM SERUM 4.3 MEQ/L (3.5-5.1); SODIUM LEVEL 142 MEQ/L (136-145); TOTAL PROTEIN 7.1 GM/DL (6.4-8.2); TRIGLYCERIDES LEVEL 99 MG/DL (<150)
== END ==
LOC: M LAB REF 12:42
PROVIDERS: ATTEND Nurse Practitioner Adult Health
DX: Z13.9 Encounter for screening, unspecified (principal)

== ENCOUNTER → 2017-03-25 | Outpatient (CLI) | payer OTHER, MEDICAID ==
--- NOTE | 2017-03-25 17:47 | REP ---
CT study of the chest without contrast: History: Chronic obstructive pulmonary disease. Comparison chest x-ray February 23, 2017. Also reviewed is a April 27, 2016 prior chest x-ray. Findings: There is no evidence of pleural or pericardial effusion. There is a large calcified gallstone visible in the gallbladder lumen. No adrenal lesion is seen. Visualized upper abdominal structures are otherwise unremarkable. No hilar or mediastinal mass or adenopathy is seen. Tracheobronchial tree is unremarkable. There is some mild linear fibrosis in both lung bases. No pulmonary nodule mass or infiltrate is seen. Minimal linear fibrosis is noted in the right upper lobe as well. No evidence of significant interstitial lung disease. No bony destructive lesion is seen. Impression: Bibasilar linear fibrosis. Otherwise no acute cardiopulmonary disease seen. Signed by Osmnai New MD 03/27/2017 12:31 P
== END ==
LOC: M RAD 16:15
PROVIDERS: ATTEND Internal Medicine Pulmonary Disease
DX: J44.9 Chronic obstructive pulmonary disease, unspecified (principal)

== ENCOUNTER → 2017-04-06 | Outpatient (CLI) | payer OTHER ==
[2017-04-06 16:22] LABS: FREE T4 1.54 NG/DL (0.76-1.46); THYROID PEROXIDASE ANTIBODY 34.9 U/ML (<60.0)
== END ==
LOC: M LAB 15:14
PROVIDERS: ATTEND Nurse Practitioner Family
DX: E05.00 Thyrotoxicosis with diffuse goiter without thyrotoxic crisis or storm (principal)

== ENCOUNTER → 2017-04-14 | Outpatient (CLI) | payer OTHER ==
--- NOTE | 2017-04-15 15:06 | REP ---
NUCLEAR THYROID UPTAKE AND SCAN: Following the oral administration of 369 microcuries Iodine 123 as sodium iodine, thyroid uptake is measured. The 24 hour uptake is 41.7% which is above the normal range of 25 to 35%. Thyroid scan shows enlargement of the right lobe. There is a large hyperintense focus in the mid to lower right lobe. There is apparent suppression of uptake in the left lobe. The findings are most consistent with a hyperfunctioning nodule in the right mid to lower lobe with suppression of uptake in the remainder of the thyroid. Signed by Doe Dobbins MD 04/15/2017 03:56 P
== END ==
LOC: M RAD 13:32
PROVIDERS: ATTEND Nurse Practitioner Family
DX: E05.90 Thyrotoxicosis, unspecified without thyrotoxic crisis or storm (principal)

== ENCOUNTER → 2017-05-04 | Outpatient (REF) | payer OTHER | LOC: M LAB REF 15:59 | DX: J02.9 Acute pharyngitis, unspecified (principal) | CPT/HCPCS: 87633 ==

== ENCOUNTER → 2017-07-20 | Outpatient (REF) | payer OTHER ==
[2017-07-20 14:21] LABS: TOTAL 25(OH) VITAMIN D 68.7 NG/ML (30.0-100.0)
[2017-07-20 14:38] LABS: ALBUMIN 4.1 GM/DL (3.2-5.2); ALBUMIN/GLOBULIN RATIO 1.21 (1.00-1.93); ALKALINE PHOSPHATASE 110 U/L (45-117); ALT/SGPT 24 U/L (12-78); ANION GAP 6 MEQ/L (8-16); AST/SGOT 16 U/L (7-37); BILIRUBIN,TOTAL 0.5 MG/DL (0.2-1.0); BLOOD UREA NITROGEN 13 MG/DL (7-18); CALCIUM LEVEL 9.5 MG/DL (8.5-10.1); CARBON DIOXIDE LEVEL 28 MEQ/L (21-32); CHLORIDE LEVEL 109 MEQ/L (98-107); CREATININE FOR GFR 0.59 MG/DL (0.55-1.30); GLOMERULAR FILTRATION RATE > 60.0 (>51); GLUCOSE, FASTING 101 MG/DL (70-100); POTASSIUM SERUM 4.4 MEQ/L (3.5-5.1); SODIUM LEVEL 143 MEQ/L (136-145); TOTAL PROTEIN 7.5 GM/DL (6.4-8.2)
== END ==
LOC: M LAB REF 13:28
DX: Z13.9 Encounter for screening, unspecified (principal); E55.9 Vitamin D deficiency, unspecified
CPT/HCPCS: 82306

== ENCOUNTER 2018-06-16 14:26 | Emergency (ER) | payer OTHER ==
[~2018-06-16] VITALS: Ht 157.5 cm; Wt 84.5 kg
[2018-06-16] MEDS ORDERED: IPRATROPIUM 0.5MG/ALBUTEROL 2.5MG INH SOL UD 3ML (DUONEB)(J7620) NEB ONE (14:45)
--- NOTE | 2018-06-16 15:05 | REP ---
Chest one-view HISTORY: Chest pain Comparison: 02/23/2017 Linear densities are present in the left lower lobe consistent with scar. The right lung is clear. The heart is normal in size. The pulmonary vasculature is normal in appearance. Impression: No acute disease. Electronically Signed by Catracho Rothman MD 06/16/2018 02:57 P
[2018-06-16 15:07] LABS: BASO # 0.1 10^3/uL (0.0-0.2); BASO % 1.3 % (0.0-1.0); EOS # 0.6 10^3/uL (0.0-0.50); EOS % 11.5 % (0.0-3.0); HEMATOCRIT 48.5 % (36.0-47.0); HEMOGLOBIN 15.7 g/dl (12.0-15.5); LYMPH % 36.2 % (24.0-44.0); MEAN CORPUSCULAR HEMOGLOBIN 29.2 pg (27.0-33.0); MEAN CORPUSCULAR HGB CONC 32.4 g/dl (32.0-36.5); MEAN CORPUSCULAR VOLUME 90.1 fl (80.0-96.0); MONO # 0.5 10^3/uL (0.0-0.8); MONO % 8.5 % (0.0-5.0); NEUTROPHILS # 2.4 10^3/uL (1.8-7.7); NEUTROPHILS % 42.3 % (36.0-66.0); PLATELET COUNT, AUTOMATED 353 10^3/uL (150-450); RED BLOOD COUNT 5.38 10^6/uL (4.00-5.40); WHITE BLOOD COUNT 5.6 10^3/uL (4.0-10.0)
[2018-06-16] MEDS ORDERED: methylPREDNISolone INJ 125 MG/2 ML VIAL (J2930) IV ONE (15:15)
[2018-06-16 15:32] LABS: VENOUS BASE EXCESS 2.3 (-2.0-2.0); VENOUS HCO3 28.9 MEQ/L (23.0-27.0); VENOUS O2 SATURATION 59.7 % (60.0-80.0); VENOUS PARTIAL PRESSURE CO2 51.8 mmHg (38.0-50.0); VENOUS PARTIAL PRESSURE O2 30.4 mmHg (30.0-50.0); VENOUS PH 7.364 UNITS (7.330-7.430); VENOUS STANDARD HCO3 25.5 MEQ/L; VENOUS TOTAL CO2 30.5 MEQ/L (24.0-28.0)
[2018-06-16 15:36] LABS: BLOOD UREA NITROGEN 8 MG/DL (7-18); CALCIUM LEVEL 9.6 MG/DL (8.5-10.1); CARBON DIOXIDE LEVEL 28 MEQ/L (21-32); CHLORIDE LEVEL 106 MEQ/L (98-107); CPK CREATINE PHOSPHOKINASE 61 U/L (26-192); CREATININE FOR GFR 0.79 MG/DL (0.55-1.30); GLOMERULAR FILTRATION RATE > 60.0 (>51); GLUCOSE, FASTING 91 MG/DL (70-100); MB/CK RELATIVE INDEX 2.13 (< OR =4); POTASSIUM SERUM 3.8 MEQ/L (3.5-5.1); SODIUM LEVEL 142 MEQ/L (136-145); TROPONIN I < 0.02 NG/ML (< 0.10)
[2018-06-16 16:00] VITALS: BP 128/83
[2018-06-16] MEDS ORDERED: CEFD300CAP PO (16:24)
[2018-06-16] MEDS ORDERED: PRED10TA2 PO (16:24)
--- NOTE | 2018-06-16 17:45 | ECGEPIP ---
Stationary ECG Study 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
== END 2018-06-16 16:31 | disposition home or self-care (01) ==
LOC: M ED 14:26
DX: J44.1 Chronic obstructive pulmonary disease with (acute) exacerbation (principal); R00.0 Tachycardia, unspecified; R07.89 Other chest pain
CPT/HCPCS: 36600; 71045; 80048; 82550; 82553; 82803; 83880; 85025; 93005; 93041; 94640; 96374; 99285; J2930

== ENCOUNTER 2018-07-27 16:11 | Emergency (ER) | payer OTHER ==
[~2018-07-27] VITALS: Ht 157.5 cm; Wt 84.5 kg
[~2018-07-27 16:11] MED LIST changes: +CEFD300CAP PO; +PRED10TA2 PO
[2018-07-27] MEDS ORDERED: ADV250INH INH (16:24)
[2018-07-27] MEDS ORDERED: VENTAER INH (16:24)
[2018-07-27] MEDS ORDERED: INCR1INH INH (16:24)
[2018-07-27] MEDS ORDERED: methylPREDNISolone INJ 125 MG/2 ML VIAL (J2930) IV ONE (16:45)
[2018-07-27] MEDS: IPRATROPIUM 0.5MG/ALBUTEROL 2.5MG INH SOL UD 3ML (DUONEB)(J7620) NEB PRN ×2 (17:07→17:08)
[2018-07-27 17:12] LABS: BASO # 0.1 10^3/uL (0.0-0.2); BASO % 0.8 % (0.0-1.0); EOS # 0.1 10^3/uL (0.0-0.50); EOS % 0.7 % (0.0-3.0); HEMATOCRIT 45.1 % (36.0-47.0); HEMOGLOBIN 14.6 g/dl (12.0-15.5); LYMPH # 2.1 10^3/uL (1.5-4.5); LYMPH % 19.5 % (24.0-44.0); MEAN CORPUSCULAR HEMOGLOBIN 28.9 pg (27.0-33.0); MEAN CORPUSCULAR HGB CONC 32.4 g/dl (32.0-36.5); MEAN CORPUSCULAR VOLUME 89.1 fl (80.0-96.0); MONO # 0.3 10^3/uL (0.0-0.8); NEUTROPHILS # 8.1 10^3/uL (1.8-7.7); NEUTROPHILS % 75.6 % (36.0-66.0); PLATELET COUNT, AUTOMATED 391 10^3/uL (150-450); RED BLOOD COUNT 5.06 10^6/uL (4.00-5.40); WHITE BLOOD COUNT 10.6 10^3/uL (4.0-10.0)
[2018-07-27 17:14] LABS: BLOOD UREA NITROGEN 12 MG/DL (7-18); CALCIUM LEVEL 8.7 MG/DL (8.5-10.1); CARBON DIOXIDE LEVEL 29 MEQ/L (21-32); CHLORIDE LEVEL 109 MEQ/L (98-107); GLOMERULAR FILTRATION RATE > 60.0 (>51); GLUCOSE, FASTING 112 MG/DL (70-100); POTASSIUM SERUM 4.2 MEQ/L (3.5-5.1); SODIUM LEVEL 142 MEQ/L (136-145)
[2018-07-27] MEDS ORDERED: ACETAMINOPHEN TAB 650MG DOSE (2X325MG) PO ONE (17:15)
--- NOTE | 2018-07-27 17:27 | REP ---
Clinical: Cough and dyspnea . Comparison: 02/23/2017, 06/16/2018 . Findings: The mediastinum and cardiac silhouette are stable and within normal limits for portable technique. The lung phan are clear without acute consolidation, effusion, or pneumothorax. Skeletal structures are intact. Impression: No acute cardiopulmonary process appreciated. Electronically Signed by Roland Zamarripa MD 07/27/2018 05:19 P
[2018-07-27 17:44] LABS: INFLUENZA A AMPLIFICATION NEGATIVE (NEGATIVE); INFLUENZA B AMPLIFICATION NEGATIVE (NEGATIVE)
[2018-07-27 17:53] LABS: CPK CREATINE PHOSPHOKINASE 78 U/L (26-192); MB/CK RELATIVE INDEX 1.92 (< OR =4); NT-PRO BNP 66 PG/ML (<125); THYROID STIMULATING HORMONE < 0.005 uIU/ML (0.358-3.740); TROPONIN I < 0.02 NG/ML (< 0.10)
[2018-07-27] MEDS ORDERED: PRED10TA2 PO (18:01)
[2018-07-27 18:19] VITALS: BP 148/68
--- NOTE | 2018-07-28 20:10 | ECGEPIP ---
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
== END 2018-07-27 18:10 | disposition home or self-care (01) ==
LOC: M ED 16:11
DX: J44.1 Chronic obstructive pulmonary disease with (acute) exacerbation (principal); R00.0 Tachycardia, unspecified; Z87.891 Personal history of nicotine dependence; Z79.52 Long term (current) use of systemic steroids; Z79.899 Other long term (current) drug therapy
CPT/HCPCS: 36415; 71045; 80048; 82550; 82553; 83605; 83880; 84443; 85025; 87040; 87502; 93005; 93041; 94640; 94760; 96374; 99285; J2930

== ENCOUNTER → 2018-11-02 | Outpatient (CLI) | payer OTHER ==
[~2018-11-02] MED LIST changes: +ADV250INH INH; +INCR1INH INH; +VENTAER INH
--- NOTE | 2018-11-07 10:39 | SLEEPHOME ---
DATE OF STUDY: 11/01/2018 ORDERED BY: Dr. Menezes Diagnostic home sleep testing was performed due to concern for the obstructive sleep apnea syndrome in this patient with a history of nonrestorative sleep. For testing a nocturnal T3 respiratory monitoring device was used. Continuous record was made of pulse, oxygen saturation, airflow, chest and abdominal strain, and body position. 4 hours of 47 minutes of data were reviewed. There were only 3 hours and 34 minutes marked as time in bed. During the interval marked time in bed, there were 12 respiratory events identified of 10 seconds in duration or greater. The events were more frequent in the supine posture. Baseline pulse rate was 112, pulse rate ranged 50-127. Baseline saturation 93%. Saturations did drift down to 85%, and testing was performed in both the supine and nonsupine positions. IMPRESSION: Borderline diagnostic home sleep testing with repetitive respiratory events and oxygen desaturations to 85% with a respiratory event index of 3.4, may reflect changes consistent with obstructive sleep apnea syndrome. RECOMMENDATION: As the frequency of events was lower than that often seen in patients with overt obstructive sleep apnea, and as the events that were seen were predominantly associated supine posture, sleep position retraining for avoidance of the supine posture seems reasonable. Should the patient's symptoms persist, referral for formal in laboratory nocturnal polysomnography may be helpful as this will identify mild disease. cc: Marino Yanes MD
== END ==
LOC: M SLEEP HO 11-01 12:55
PROVIDERS: ATTEND Internal Medicine Pulmonary Disease
DX: R40.0 Somnolence (principal)

== ENCOUNTER → 2019-01-10 | Outpatient (CLI) | payer OTHER ==
--- NOTE | 2019-01-15 10:04 | REPMRS ---
Patient History The patient states she has not had a clinical breast exam in over a year. Patient is postmenopausal. No known family history of cancer. 3D TOMOSYNTHESIS WAS PERFORMED. [facility] lifetime risk for breast cancer is 6.0%. Digital Mammo Screening Bilat: January 10, 2019 - Exam #: [id number] Bilateral CC and MLO view(s) were taken. Technologist: Viri Balbuena, Technologist No prior studies available for comparison. FINDINGS: The breast tissue is heterogeneously dense. This may lower the sensitivity of mammography. There is no evidence of cancer on this mammogram. Assessment: BI-RADS/ACR category 2 mammogram. Benign Findings. Recommendation Routine screening mammogram of both breasts in 1 year (for women over age 40). This mammogram was interpreted with the aid of an FDA-approved computer-aided dectection system. Electronically Signed By: Doe Dobbins MD 01/15/19 [id number]
== END ==
LOC: M RAD 14:18
PROVIDERS: ATTEND Nurse Practitioner Family
DX: Z12.31 Encounter for screening mammogram for malignant neoplasm of breast (principal); Z78.0 Asymptomatic menopausal state

== ENCOUNTER → 2019-02-26 | Outpatient (REF) | payer OTHER, MEDICAID ==
[~2019-02-26] MED LIST changes: +ANBE20GE TOP; +ARNU1INH; +BUPR300T34; +CEFU1TAB22; +IBUP-1022 PO; +OMEP-218; +PRED5TA; +QUET200T2; +VITA500045
== END ==
LOC: M LAB REF 12:49
PROVIDERS: ATTEND Physician Assistant Medical
DX: Z11.2 Encounter for screening for other bacterial diseases (principal)

== ENCOUNTER 2019-02-27 15:04 | Emergency (ER) | payer MEDICAID, OTHER ==
[~2019-02-27] VITALS: Ht 157.5 cm; Wt 87.8 kg
[~2019-02-27 15:04] MED LIST changes: -ANBE20GE TOP; -ARNU1INH; -BUPR300T34; -CEFU1TAB22; -IBUP-1022 PO; -OMEP-218; -PRED5TA; -QUET200T2; -VITA500045
[2019-02-27] MEDS ORDERED: PRED5TA (15:09)
[2019-02-27] MEDS ORDERED: CEFU1TAB22 (15:09)
[2019-02-27] MEDS ORDERED: OMEP-218 (15:09)
[2019-02-27] MEDS ORDERED: VITA500045 (15:09)
[2019-02-27] MEDS ORDERED: BUPR300T34 (15:09)
[2019-02-27] MEDS ORDERED: QUET200T2 (15:09)
[2019-02-27] MEDS ORDERED: ARNU1INH (15:09)
[2019-02-27] MEDS ORDERED: IBUP-1022 PO (17:17)
[2019-02-27] MEDS ORDERED: ANBE20GE TOP (17:17)
[2019-02-27 17:22] VITALS: BP 159/79
== END 2019-02-27 17:25 | disposition home or self-care (01) ==
LOC: M ED 15:04
DX: K14.0 Glossitis (principal); J44.9 Chronic obstructive pulmonary disease, unspecified; F41.9 Anxiety disorder, unspecified; Z79.899 Other long term (current) drug therapy

== ENCOUNTER 2019-05-17 12:25 | Emergency (ER) | payer OTHER ==
[~2019-05-17] VITALS: Ht 160 cm; Wt 89.7 kg
[~2019-05-17 12:25] MED LIST changes: +ANBE20GE TOP; +ARNU1INH; +BUPR300T92; +CEFU1TAB22; +IBUP-1022 PO; +OMEP-218; +PRED5TA; +QUET200T2; +VITA500045
[2019-05-17 12:54] LABS: BASO # 0.1 10^3/uL (0.0-0.2); BASO % 0.7 % (0.0-1.0); EOS # 0.3 10^3/uL (0.0-0.5); EOS % 3.2 % (0.0-3.0); LYMPH # 2.5 10^3/uL (1.5-5.0); LYMPH % 29.7 % (24.0-44.0); MEAN CORPUSCULAR HEMOGLOBIN 29.4 pg (27.0-33.0); MEAN CORPUSCULAR HGB CONC 32.6 g/dl (32.0-36.5); MEAN CORPUSCULAR VOLUME 90.3 fl (80.0-96.0); MONO # 0.6 10^3/uL (0.0-0.8); MONO % 6.7 % (0.0-5.0); NEUTROPHILS % 59.6 % (36.0-66.0); PLATELET COUNT, AUTOMATED 368 10^3/uL (150-450); RED BLOOD COUNT 4.76 10^6/uL (4.00-5.40); WHITE BLOOD COUNT 8.5 10^3/uL (4.0-10.0)
[2019-05-17] MEDS ORDERED: IPRATROPIUM 0.5MG/ALBUTEROL 2.5MG INH SOL UD 3ML (DUONEB)(J7620) NEB ONE (13:00)
[2019-05-17] MEDS ORDERED: dexameTHASONE 20 MG/5 ML VIAL (J1100) IV ONE (13:00)
[2019-05-17] MEDS ORDERED: ALBUTEROL SULFATE 2.5 MG/0.5 ML INH NEB SOLN INH ONE (13:00)
[2019-05-17] MEDS ORDERED: ASPIRIN 81 MG CHEW TABLET PO ONE (13:00)
[2019-05-17] MEDS ORDERED: GI COCKTAIL 50ML BTL(HYOSCYAMINE/MAALOX/LIDOCAINE VISCOUS)(1:3:1) PO ONE (13:00)
[2019-05-17 13:08] LABS: INR 1.11
[2019-05-17 13:34] LABS: ALBUMIN 3.8 GM/DL (3.2-5.2); ALT/SGPT 29 U/L (12-78); BILIRUBIN,DIRECT 0.2 MG/DL (0.0-0.2); BILIRUBIN,TOTAL 0.6 MG/DL (0.2-1.0); BLOOD UREA NITROGEN 12 MG/DL (7-18); CALCIUM LEVEL 9.5 MG/DL (8.5-10.1); CARBON DIOXIDE LEVEL 27 MEQ/L (21-32); CHLORIDE LEVEL 106 MEQ/L (98-107); CK-MB VALUE MASS 4.2 NG/ML (<3.6); CPK CREATINE PHOSPHOKINASE 125 U/L (26-192); CREATININE FOR GFR 0.68 MG/DL (0.55-1.30); FREE T4 2.31 NG/DL (0.76-1.46); GLOMERULAR FILTRATION RATE > 60.0 (>51); GLUCOSE, FASTING 95 MG/DL (70-100); LIPASE 96 U/L (73-393); MB/CK RELATIVE INDEX 3.36 (< OR =4); POTASSIUM SERUM 3.8 MEQ/L (3.5-5.1); SODIUM LEVEL 140 MEQ/L (136-145); THYROID STIMULATING HORMONE < 0.005 uIU/ML (0.358-3.740); TOTAL PROTEIN 7.4 GM/DL (6.4-8.2); TROPONIN I < 0.02 NG/ML (< 0.10)
--- NOTE | 2019-05-17 13:49 | REP ---
Portable chest x-ray: Single view. History: Chest pain. Comparison study: July 27, 2018. Findings: Monitoring electrodes overlie the chest. Lungs are well inflated and clear. The pleural angles are sharp. Heart size is normal. Pulmonary vasculature is not increased. Impression: No active disease. Electronically Signed by Osmani New MD 05/17/2019 01:41 P
[2019-05-17] MEDS ORDERED: PRED10TA2 PO (14:39)
[2019-05-17 14:46] VITALS: BP 146/78
--- NOTE | 2019-05-18 20:17 | ECGEPIP ---
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
== END 2019-05-17 15:02 | disposition left against medical advice (07) ==
LOC: M ED 12:25
DX: R07.9 Chest pain, unspecified (principal); R06.02 Shortness of breath; J44.9 Chronic obstructive pulmonary disease, unspecified; Z79.899 Other long term (current) drug therapy
CPT/HCPCS: 71045; 80048; 80076; 82550; 82553; 83690; 84439; 84443; 85025; 85610; 93005; 93041; 94640; 94760; 96374; 99284; J1100

== ENCOUNTER → 2019-05-21 | Outpatient (CLI) | payer OTHER ==
[2019-05-21 09:36] LABS: CHOLESTEROL LEVEL 212 MG/DL (<200); CHOLESTEROL RISK RATIO 2.409 (<5); FREE T4 2.36 NG/DL (0.76-1.46); HDL CHOLESTEROL 88 MG/DL (>40); LDL CHOLESTEROL 99 MG/DL (<100); NON-HDL-C 124 MG/DL; NT-PRO BNP 143 PG/ML (<125); T UPTAKE 40 % (30-39); THYROID STIMULATING HORMONE < 0.005 uIU/ML (0.358-3.740); THYROXINE (T4) 15.2 UG/DL (4.5-12.0); TRIGLYCERIDES LEVEL 127 MG/DL (<150)
--- NOTE | 2019-05-22 02:44 | REP ---
Clinical: Hemoptysis and shortness of breath with history of chronic obstructive pulmonary disease. Technique: Axial noncontrast images from the thoracic inlet to the upper abdomen with coronal and sagittal re-formations. Comparison: 03/25/2017. Findings: The bilateral lung phan are relatively well aerated, symmetric and essentially clear. Minimal scarring and chronic-appearing fiber atelectatic changes are identified in the right middle lobe and bilateral bases. No consolidation, significant nodule, or mass. No effusion. No pneumothorax. Tracheobronchial tree is patent. No obvious adenopathy. The mediastinum demonstrates relatively normal thoracic aorta, pulmonary vasculature and heart/pericardium. No cardiomegaly or pericardial effusion. Surrounding musculoskeletal structures demonstrate age-related changes without focal abnormality. Limited upper abdomen demonstrates normal bilateral adrenal glands and evidence for cholelithiasis. Impression: 1. No acute mediastinal or pleuroparenchymal process. 2. Cholelithiasis. Electronically Signed by Roland Zamarripa MD 05/22/2019 02:36 A
== END ==
LOC: M RAD 08:03
PROVIDERS: ATTEND Internal Medicine Cardiovascular Disease
DX: K80.20 Calculus of gallbladder without cholecystitis without obstruction (principal); R04.2 Hemoptysis; R06.02 Shortness of breath; J44.9 Chronic obstructive pulmonary disease, unspecified; E05.10 Thyrotoxicosis with toxic single thyroid nodule without thyrotoxic crisis or storm; R07.2 Precordial pain

== ENCOUNTER → 2019-05-31 | Outpatient (REF) | payer OTHER, MEDICAID ==
[2019-05-31 14:24] LABS: HEMATOCRIT 43.6 % (36.0-47.0); HEMOGLOBIN 13.3 g/dl (12.0-15.5); MEAN CORPUSCULAR HEMOGLOBIN 28.5 pg (27.0-33.0); MEAN CORPUSCULAR HGB CONC 30.5 g/dl (32.0-36.5); MEAN CORPUSCULAR VOLUME 93.6 fl (80.0-96.0); PLATELET COUNT, AUTOMATED 332 10^3/uL (150-450); RED BLOOD COUNT 4.66 10^6/uL (4.00-5.40); WHITE BLOOD COUNT 8.3 10^3/uL (4.0-10.0)
[2019-05-31 14:33] LABS: BLOOD UREA NITROGEN 13 MG/DL (7-18); CARBON DIOXIDE LEVEL 29 MEQ/L (21-32); CHLORIDE LEVEL 109 MEQ/L (98-107); CREATININE FOR GFR 0.84 MG/DL (0.55-1.30); GLOMERULAR FILTRATION RATE > 60.0 (>51); GLUCOSE, FASTING 110 MG/DL (70-100); POTASSIUM SERUM 3.8 MEQ/L (3.5-5.1); SODIUM LEVEL 142 MEQ/L (136-145)
[2019-05-31 14:34] LABS: ALBUMIN 3.5 GM/DL (3.2-5.2); ALT/SGPT 34 U/L (12-78); BILIRUBIN,TOTAL 0.5 MG/DL (0.2-1.0); CALCIUM LEVEL 8.9 MG/DL (8.5-10.1); CHOLESTEROL LEVEL 206 MG/DL (<200); CHOLESTEROL RISK RATIO 2.263 (<5); FREE T4 2.33 NG/DL (0.76-1.46); HDL CHOLESTEROL 91 MG/DL (>40); LDL CHOLESTEROL 95 MG/DL (<100); NON-HDL-C 115 MG/DL; THYROID STIMULATING HORMONE < 0.005 uIU/ML (0.358-3.740); TOTAL PROTEIN 6.9 GM/DL (6.4-8.2); TRIGLYCERIDES LEVEL 98 MG/DL (<150)
[2019-05-31 14:39] LABS: HEMOGLOBIN A1c 5.8 %
[2019-05-31 15:03] LABS: ATYPICAL LYMPH 2 % (0-5); EOSINOPHILS 2 % (0-3); LYMPHOCYTES 54 % (16-44); MONOCYTES 9 % (0-5); NEUTROPHILS 33 % (28-66)
[2019-05-31 15:04] LABS: PLATELET ESTIMATE NORMAL (NORMAL)
[2019-06-01 13:18] LABS: TOTAL 25(OH) VITAMIN D 72.4 NG/ML (30.0-100.0)
== END ==
LOC: M LAB REF 13:23
PROVIDERS: ATTEND Nurse Practitioner Family
DX: Z13.9 Encounter for screening, unspecified (principal); F41.9 Anxiety disorder, unspecified; K21.9 Gastro-esophageal reflux disease without esophagitis; R00.0 Tachycardia, unspecified; E55.9 Vitamin D deficiency, unspecified

== ENCOUNTER → 2019-07-11 | Outpatient (CLI) | payer OTHER, MEDICAID ==
--- NOTE | 2019-07-11 16:59 | REP ---
Chest x-ray: Two views. History: COPD. Short of breath. Comparison chest x-ray May 17, 2019 , July 27, 2018, and February 23, 2017. Findings: The lungs are slightly hyperinflated but free of infiltrate. On lateral radiograph there is a linear opacity over the posterior heart border consistent with plate-like atelectasis in one of the lower lobes. This is not definitely seen on the frontal view. The pleural angles are sharp. Heart is not enlarged. The thoracic aorta is somewhat tortuous as before. Pulmonary vasculature is not increased. Impression: Lower lobe plate-like atelectasis seen on lateral film. Mild in degree. Otherwise no acute disease. Hyperinflation. Electronically Signed by Osmani New MD 07/11/2019 06:32 P
== END ==
LOC: M RAD 11:19
PROVIDERS: ATTEND Internal Medicine Pulmonary Disease
DX: J98.11 Atelectasis (principal); J44.9 Chronic obstructive pulmonary disease, unspecified; R06.02 Shortness of breath

== ENCOUNTER → 2019-10-08 | Outpatient (REF) | payer OTHER ==
[2019-10-08 13:11] LABS: BASO % 0.6 % (0.0-1.0); EOS # 0.1 10^3/uL (0.0-0.5); EOS % 1.7 % (0.0-3.0); HEMATOCRIT 44.4 % (36.0-47.0); HEMOGLOBIN 14.4 g/dl (12.0-15.5); LYMPH # 3.4 10^3/uL (1.5-5.0); LYMPH % 47.5 % (24.0-44.0); MEAN CORPUSCULAR HEMOGLOBIN 29.7 pg (27.0-33.0); MEAN CORPUSCULAR HGB CONC 32.4 g/dl (32.0-36.5); MEAN CORPUSCULAR VOLUME 91.5 fl (80.0-96.0); MONO # 0.6 10^3/uL (0.0-0.8); MONO % 8.6 % (0.0-5.0); NEUTROPHILS # 2.9 10^3/uL (1.5-8.5); NEUTROPHILS % 41.3 % (36.0-66.0); PLATELET COUNT, AUTOMATED 316 10^3/uL (150-450); RED BLOOD COUNT 4.85 10^6/uL (4.00-5.40); WHITE BLOOD COUNT 7.1 10^3/uL (4.0-10.0)
[2019-10-08 13:28] LABS: ALBUMIN 3.6 GM/DL (3.2-5.2); ALT/SGPT 43 U/L (12-78); BILIRUBIN,TOTAL 0.5 MG/DL (0.2-1.0); BLOOD UREA NITROGEN 12 MG/DL (7-18); CALCIUM LEVEL 9.7 MG/DL (8.5-10.1); CARBON DIOXIDE LEVEL 31 MEQ/L (21-32); CHLORIDE LEVEL 103 MEQ/L (98-107); CHOLESTEROL LEVEL 251 MG/DL (<200); CHOLESTEROL RISK RATIO 2.952 (<5); CREATININE FOR GFR 0.68 MG/DL (0.55-1.30); FREE T4 1.91 NG/DL (0.76-1.46); GLOMERULAR FILTRATION RATE > 60.0 (>51); GLUCOSE, FASTING 100 MG/DL (70-100); HDL CHOLESTEROL 85 MG/DL (>40); LDL CHOLESTEROL 123 MG/DL (<100); NON-HDL-C 166 MG/DL; POTASSIUM SERUM 4.2 MEQ/L (3.5-5.1); SODIUM LEVEL 140 MEQ/L (136-145); THYROID STIMULATING HORMONE < 0.005 uIU/ML (0.358-3.740); TOTAL 25(OH) VITAMIN D 38.6 NG/ML (30.0-100.0); TOTAL PROTEIN 7.2 GM/DL (6.4-8.2); TRIGLYCERIDES LEVEL 213 MG/DL (<150)
== END ==
LOC: M LAB REF 11:40
PROVIDERS: ATTEND Nurse Practitioner Family
DX: R73.03 Prediabetes (principal); E66.9 Obesity, unspecified; F41.9 Anxiety disorder, unspecified; K21.9 Gastro-esophageal reflux disease without esophagitis; R00.0 Tachycardia, unspecified; E55.9 Vitamin D deficiency, unspecified; Z13.9 Encounter for screening, unspecified

== ENCOUNTER → 2019-10-17 | Outpatient (CLI) | payer OTHER ==
--- NOTE | 2019-10-18 12:48 | REP ---
NUCLEAR THYROID UPTAKE AND SCAN: Following the oral administration of 412 microcuries iodine 123 as sodium iodide, thyroid uptake is measured. The 24-hour uptake is 50.18%. On the prior study of 04/15/2017, the 24-hour uptake is 41.71%. Thyroid scan once again shows enlargement of the right lobe of the thyroid as seen on prior study, unchanged. There is again a dominant hyperintense focus involving the mid and lower right lobe, with a lesser degree of uptake in the right upper pole and throughout the left lobe. Once again the findings are consistent with a hyperfunctioning nodule in the inferior right lobe of the thyroid with suppression of uptake elsewhere. Electronically Signed by Doe Dobbins MD 10/18/2019 03:39 P
== END ==
LOC: M RAD 11:01
PROVIDERS: ATTEND Nurse Practitioner Family
DX: E05.00 Thyrotoxicosis with diffuse goiter without thyrotoxic crisis or storm (principal)
CPT/HCPCS: 78012; A9516

== ENCOUNTER → 2019-12-17 | Outpatient (CLI) | payer OTHER ==
--- NOTE | 2020-01-11 17:10 | ECGEPIP ---
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
== END ==
LOC: M EKG 09:30
PROVIDERS: ATTEND Orthopaedic Surgery
DX: Z01.810 Encounter for preprocedural cardiovascular examination (principal); R00.0 Tachycardia, unspecified

== ENCOUNTER → 2019-12-21 | Outpatient (CLI) | payer OTHER | LOC: M LABSMTC 10:48 | PROVIDERS: ATTEND Orthopaedic Surgery | DX: Z01.812 Encounter for preprocedural laboratory examination (principal) | CPT/HCPCS: C9803; U0003 ==

== ENCOUNTER → 2020-01-15 | Outpatient (REF) | payer OTHER, MEDICAID ==
[2020-01-15 12:37] LABS: BASO # 0.1 10^3/uL (0.0-0.2); BASO % 0.7 % (0.0-1.0); EOS # 0.1 10^3/uL (0.0-0.5); EOS % 0.9 % (0.0-3.0); HEMATOCRIT 45.8 % (36.0-47.0); HEMOGLOBIN 14.5 g/dl (12.0-15.5); LYMPH # 3.6 10^3/uL (1.5-5.0); LYMPH % 42.5 % (24.0-44.0); MEAN CORPUSCULAR HEMOGLOBIN 29.5 pg (27.0-33.0); MEAN CORPUSCULAR HGB CONC 31.7 g/dl (32.0-36.5); MEAN CORPUSCULAR VOLUME 93.1 fl (80.0-96.0); MONO # 0.6 10^3/uL (0.0-0.8); MONO % 6.7 % (0.0-5.0); NEUTROPHILS # 4.2 10^3/uL (1.5-8.5); NEUTROPHILS % 48.7 % (36.0-66.0); PLATELET COUNT, AUTOMATED 382 10^3/uL (150-450); RED BLOOD COUNT 4.92 10^6/uL (4.00-5.40); WHITE BLOOD COUNT 8.6 10^3/uL (4.0-10.0)
[2020-01-15 12:46] LABS: ALBUMIN 3.6 GM/DL (3.2-5.2); ALT/SGPT 37 U/L (12-78); BILIRUBIN,TOTAL 0.5 MG/DL (0.2-1.0); BLOOD UREA NITROGEN 10 MG/DL (7-18); CALCIUM LEVEL 10.1 MG/DL (8.5-10.1); CARBON DIOXIDE LEVEL 30 MEQ/L (21-32); CHLORIDE LEVEL 105 MEQ/L (98-107); CHOLESTEROL LEVEL 250 MG/DL (<200); CHOLESTEROL RISK RATIO 3.289 (<5); CREATININE FOR GFR 0.71 MG/DL (0.55-1.30); GLOMERULAR FILTRATION RATE > 60.0 (>51); GLUCOSE, FASTING 103 MG/DL (70-100); HDL CHOLESTEROL 76 MG/DL (>40); LDL CHOLESTEROL 139 MG/DL (<100); NON-HDL-C 174 MG/DL; POTASSIUM SERUM 4.2 MEQ/L (3.5-5.1); SODIUM LEVEL 140 MEQ/L (136-145); TOTAL PROTEIN 7.3 GM/DL (6.4-8.2); TRIGLYCERIDES LEVEL 174 MG/DL (<150)
[2020-01-15 14:11] LABS: HEMOGLOBIN A1c 6.3 %
== END ==
LOC: M LAB REF 11:57
PROVIDERS: ATTEND Nurse Practitioner Family
DX: E78.5 Hyperlipidemia, unspecified (principal); R73.03 Prediabetes; E66.9 Obesity, unspecified; Z13.9 Encounter for screening, unspecified

== ENCOUNTER → 2020-01-25 | Outpatient (CLI) | payer OTHER ==
[2020-01-25 12:16] LABS: URINE PREG TEST NEGATIVE (NEGATIVE)
== END ==
LOC: M LAB 11:55
PROVIDERS: ATTEND Nurse Practitioner Family
DX: E05.00 Thyrotoxicosis with diffuse goiter without thyrotoxic crisis or storm (principal)

== ENCOUNTER → 2020-01-25 | Outpatient (CLI) | payer OTHER | LOC: M RAD 11:20 | PROVIDERS: ATTEND Internal Medicine Endocrinology, Diabetes & Metabolism | DX: E05.00 Thyrotoxicosis with diffuse goiter without thyrotoxic crisis or storm (principal) | CPT/HCPCS: 79005; A9517 ==

== ENCOUNTER → 2020-03-14 | Outpatient (CLI) | payer OTHER ==
[2020-03-14 12:19] LABS: FREE T4 0.53 NG/DL (0.76-1.46); THYROID STIMULATING HORMONE 0.012 uIU/ML (0.358-3.740)
[2020-03-14 12:21] LABS: TOTAL T3 43.5 NG/DL (60.0-181.0)
== END ==
LOC: M LAB 10:11
PROVIDERS: ATTEND Internal Medicine Endocrinology, Diabetes & Metabolism
DX: E05.00 Thyrotoxicosis with diffuse goiter without thyrotoxic crisis or storm (principal)

== ENCOUNTER → 2020-03-24 | Outpatient (CLI) | payer OTHER | LOC: M LAB 10:12 | PROVIDERS: ATTEND Internal Medicine Endocrinology, Diabetes & Metabolism | DX: E89.0 Postprocedural hypothyroidism (principal) ==

== ENCOUNTER → 2020-04-03 | Outpatient (CLI) | payer OTHER | LOC: M LAB 09:33 | PROVIDERS: ATTEND Internal Medicine Endocrinology, Diabetes & Metabolism | DX: E89.0 Postprocedural hypothyroidism (principal) ==

== ENCOUNTER → 2020-04-09 | Outpatient (CLI) | payer OTHER ==
[2020-04-09 15:51] LABS: FREE T4 0.92 NG/DL (0.76-1.46); THYROID STIMULATING HORMONE 0.818 uIU/ML (0.358-3.740)
== END ==
LOC: M PLALAB 12:02
PROVIDERS: ATTEND Nurse Practitioner Family
DX: E89.0 Postprocedural hypothyroidism (principal)

== ENCOUNTER → 2020-05-22 | Outpatient (CLI) | payer OTHER ==
[2020-05-22 15:10] LABS: FREE T4 0.97 NG/DL (0.76-1.46); THYROID STIMULATING HORMONE 1.47 uIU/ML (0.358-3.740)
== END ==
LOC: M PLALAB 11:25
PROVIDERS: ATTEND Internal Medicine Endocrinology, Diabetes & Metabolism
DX: E89.0 Postprocedural hypothyroidism (principal)

== ENCOUNTER → 2020-06-24 | Outpatient (CLI) | payer OTHER ==
--- NOTE | 2020-06-24 11:41 | REP ---
INDICATION: DISORDER OF THYROID,MORBID (SEVERE) OBESITY/LABS COMPARISON: 07/11/2019 TECHNIQUE: PA and lateral. FINDINGS: The mediastinum and cardiac silhouette are normal. The lung phan are clear and without acute consolidation, effusion, or pneumothorax. Small area of linear fibroatelectatic change at the left base again noted. The skeletal structures are intact and normal. IMPRESSION: No acute cardiopulmonary process. <Electronically signed by Roland Zamarripa > 06/24/20 [id number]
[2020-06-24 12:07] LABS: BASO # 0.1 10^3/uL (0.0-0.2); BASO % 0.9 % (0.0-1.0); EOS # 0.1 10^3/uL (0.0-0.5); EOS % 1.4 % (0.0-3.0); HEMATOCRIT 44.8 % (36.0-47.0); HEMOGLOBIN 13.9 g/dl (12.0-15.5); LYMPH % 30.6 % (24.0-44.0); MEAN CORPUSCULAR HEMOGLOBIN 30.2 pg (27.0-33.0); MEAN CORPUSCULAR VOLUME 97.2 fl (80.0-96.0); MONO # 0.6 10^3/uL (0.0-0.8); MONO % 8.3 % (2.0-8.0); NEUTROPHILS # 3.9 10^3/uL (1.5-8.5); NEUTROPHILS % 58.3 % (36.0-66.0); PLATELET COUNT, AUTOMATED 353 10^3/uL (150-450); RED BLOOD COUNT 4.61 10^6/uL (4.00-5.40); WHITE BLOOD COUNT 6.6 10^3/uL (4.0-10.0)
[2020-06-24 12:31] LABS: HEMOGLOBIN A1c 5.3 %
[2020-06-24 12:39] LABS: ALT/SGPT 38 U/L (12-78); BILIRUBIN,TOTAL 0.3 MG/DL (0.2-1.0); BLOOD UREA NITROGEN 13 MG/DL (7-18); CALCIUM LEVEL 9.2 MG/DL (8.5-10.1); CARBON DIOXIDE LEVEL 27 MEQ/L (21-32); CHLORIDE LEVEL 109 MEQ/L (98-107); CHOLESTEROL LEVEL 314 MG/DL (<200); CHOLESTEROL RISK RATIO 3.609 (<5); CREATININE FOR GFR 0.89 MG/DL (0.55-1.30); FERRITIN 29 NG/ML (8-252); FREE T4 0.92 NG/DL (0.76-1.46); GLOMERULAR FILTRATION RATE > 60.0 (>51); GLUCOSE, FASTING 112 MG/DL (70-100); HDL CHOLESTEROL 87 MG/DL (>40); IRON (FE) 84 UG/DL (50-170); LDL CHOLESTEROL 199 MG/DL (<100); NON-HDL-C 227 MG/DL; PERCENT SATURATION 22.8 % (13.2-45.0); POTASSIUM SERUM 4.4 MEQ/L (3.5-5.1); SODIUM LEVEL 141 MEQ/L (136-145); THYROID STIMULATING HORMONE 0.972 uIU/ML (0.358-3.740); TOTAL IRON BINDING CAPACITY 369 UG/DL (250-450); TOTAL PROTEIN 7.3 GM/DL (6.4-8.2); TRIGLYCERIDES LEVEL 138 MG/DL (<150); VITAMIN B12 LEVEL 519 PG/ML (247-911)
[2020-06-24 12:48] LABS: TOTAL 25(OH) VITAMIN D 29.9 NG/ML (30.0-100.0)
--- NOTE | 2020-06-24 19:41 | ECGEPIP ---
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
== END ==
LOC: M LAB 11:02
PROVIDERS: ATTEND Nurse Practitioner Women's Health
DX: E66.01 Morbid (severe) obesity due to excess calories (principal); E07.9 Disorder of thyroid, unspecified; R53.82 Chronic fatigue, unspecified

== ENCOUNTER → 2020-07-10 | Outpatient (CLI) | payer OTHER ==
[2020-07-10 14:15] LABS: FREE T4 0.77 NG/DL (0.76-1.46); THYROID STIMULATING HORMONE 1.29 uIU/ML (0.358-3.740)
== END ==
LOC: M PLALAB 11:07
PROVIDERS: ATTEND Nurse Practitioner Family
DX: E89.0 Postprocedural hypothyroidism (principal)

== ENCOUNTER → 2020-08-22 | Outpatient (CLI) | payer OTHER | LOC: M LABSMTC 13:12 | PROVIDERS: ATTEND Nurse Practitioner Women's Health | DX: Z20.822 Contact with and (suspected) exposure to COVID-19 (principal) ==

== ENCOUNTER → 2020-09-30 | Outpatient (REF) | payer OTHER ==
[2020-09-30 14:11] LABS: FREE T4 1.02 NG/DL (0.76-1.46); THYROID STIMULATING HORMONE 0.234 uIU/ML (0.358-3.740)
== END ==
LOC: M PLALAB 12:53
PROVIDERS: ATTEND Nurse Practitioner Family
DX: E89.0 Postprocedural hypothyroidism (principal)

== ENCOUNTER → 2020-10-22 | Outpatient (CLI) | payer OTHER ==
--- NOTE | 2020-10-22 11:08 | REP ---
INDICATION: CELLULITIS OF LEFT UPPER LIMB COMPARISON: None. TECHNIQUE: AP, lateral, bilateral oblique views of the left elbow elbow. FINDINGS: Lateral view best demonstrates moderate soft tissue swelling along the dorsal aspect of the proximal forearm overlying the proximal ulna. No associated subcutaneous emphysema or definite foreign body is identified. The osseous structures and joint spaces are intact and normal. IMPRESSION: Soft tissue swelling consistent with the given history of cellulitis. No subcutaneous emphysema or foreign body appreciated. <Electronically signed by Roland Zamarripa > 10/22/20 [id number]
== END ==
LOC: M PLAIMG 10:27
PROVIDERS: ATTEND Physician Assistant
DX: M79.89 Other specified soft tissue disorders (principal)

== ENCOUNTER → 2020-11-13 | Outpatient (CLI) | payer OTHER ==
--- NOTE | 2020-11-13 13:04 | REP ---
INDICATION: PERSONAL H/O NICOTINE DEPEND. COMPARISON: Chest 06/24/2020, 07/11/2019; CT 05/21/2019 TECHNIQUE: Low-dose lung CT screening protocol. FINDINGS: The lung phan are well inflated. Some fibro atelectatic changes posteriorly in the lower lung zones as well as in the medial segment right middle lobe, unchanged is curvilinear scarring in the medial aspect of the right upper lobe also unchanged. There is no dense consolidation, pleural thickening, calcified pleural plaque, pleural based mass or effusion. No evidence of significant pulmonary nodule. IMPRESSION: 1. Lung RADS category 1 negative. No evidence of malignancy. Patients in this category of exam findings have less than 1% chance of malignancy at the time of the examination. For patients at high risk of lung cancer development, annual low-dose screening CT recommended. <Electronically signed by Constantin Perez > 11/13/20 1300
== END ==
LOC: M RAD 12:34
PROVIDERS: ATTEND Internal Medicine Pulmonary Disease
DX: Z87.891 Personal history of nicotine dependence (principal)

== ENCOUNTER → 2021-01-15 | Outpatient (CLI) | payer OTHER ==
[2021-01-15 13:50] LABS: FREE T4 1.13 NG/DL (0.76-1.46); THYROID STIMULATING HORMONE 0.378 uIU/ML (0.358-3.740)
== END ==
LOC: M PLALAB 10:21
PROVIDERS: ATTEND Internal Medicine Endocrinology, Diabetes & Metabolism
DX: E89.0 Postprocedural hypothyroidism (principal)

== ENCOUNTER → 2021-01-19 | Outpatient (CLI) | payer OTHER | LOC: M LABSMTC 10:54 | PROVIDERS: ATTEND Surgery | DX: Z11.52 Encounter for screening for COVID-19 (principal) ==

== ENCOUNTER → 2021-02-13 | Outpatient (CLI) | payer OTHER ==
--- NOTE | 2021-02-15 08:12 | REP ---
INDICATION: SPRAIN COMPARISON: None. TECHNIQUE: AP, lateral, bilateral oblique and sunrise views. FINDINGS: Tricompartmental osteoarthritic degenerative changes include osteophytosis, cortical irregularities, and multiple calcified loose bodies. Lateral view demonstrates small to moderate suprapatellar effusion. Struthers view best demonstrates patellar sclerosis with joint space narrowing and marginal osteophytosis. No acute fracture or dislocation. IMPRESSION: Early advanced tricompartmental osteoarthritic degenerative changes with multiple calcified loose bodies. <Electronically signed by Roland Zamarripa > 02/15/21 0413
== END ==
LOC: M WUC 13:40
PROVIDERS: ATTEND Physician Assistant
DX: M17.12 Unilateral primary osteoarthritis, left knee (principal); S83.412A Sprain of medial collateral ligament of left knee, initial encounter; X58.XXXA Exposure to other specified factors, initial encounter; Y92.9 Unspecified place or not applicable; Y99.9 Unspecified external cause status

== ENCOUNTER → 2021-03-23 | Outpatient (REF) | payer OTHER ==
[~2021-03-23] MED LIST changes: +OMEP-173; -OMEP-218
[2021-03-28 17:07] LABS: CODEINE, URINE Negative (Cutoff=100); CREATININE, URINE 188.3 mg/dL (20.0-300.0); HYDROCODONE CONFIRM, URINE 446 ng/mL (Cutoff=100); HYDROCODONE, URINE Positive (.); HYDROMORPHONE, URINE Negative (Cutoff=100); MORPHINE, URINE Negative (Cutoff=100); OPIATES, URINE Positive ng/mL (Cutoff=300)
== END ==
LOC: M SFHCPLAZ 13:14
PROVIDERS: ATTEND Nurse Practitioner Family
DX: F11.90 Opioid use, unspecified, uncomplicated (principal)

== ENCOUNTER → 2021-03-25 | Outpatient (CLI) | payer OTHER ==
[2021-03-25 13:29] LABS: BASO # 0.1 10^3/uL (0.0-0.2); BASO % 0.9 % (0.0-1.0); EOS # 0.1 10^3/uL (0.0-0.5); EOS % 1.8 % (0.0-3.0); HEMATOCRIT 47.9 % (36.0-47.0); HEMOGLOBIN 14.9 g/dl (12.0-15.5); LYMPH # 2.1 10^3/uL (1.5-5.0); LYMPH % 37.3 % (24.0-44.0); MEAN CORPUSCULAR HEMOGLOBIN 29.5 pg (27.0-33.0); MEAN CORPUSCULAR HGB CONC 31.1 g/dl (32.0-36.5); MEAN CORPUSCULAR VOLUME 94.9 fl (80.0-96.0); MONO # 0.3 10^3/uL (0.0-0.8); MONO % 5.7 % (2.0-8.0); NEUTROPHILS % 54.1 % (36.0-66.0); PLATELET COUNT, AUTOMATED 316 10^3/uL (150-450); RED BLOOD COUNT 5.05 10^6/uL (4.00-5.40); WHITE BLOOD COUNT 5.6 10^3/uL (4.0-10.0)
[2021-03-25 13:37] LABS: HEMOGLOBIN A1c 5.6 %
[2021-03-25 13:45] LABS: ALBUMIN 3.8 GM/DL (3.2-5.2); ALT/SGPT 32 U/L (12-78); BILIRUBIN,TOTAL 0.5 MG/DL (0.2-1.0); BLOOD UREA NITROGEN 13 MG/DL (7-18); CALCIUM LEVEL 9.4 MG/DL (8.5-10.1); CARBON DIOXIDE LEVEL 28 MEQ/L (21-32); CHLORIDE LEVEL 109 MEQ/L (98-107); CHOLESTEROL LEVEL 223 MG/DL (<200); CHOLESTEROL RISK RATIO 3.912 (<5); CREATININE FOR GFR 0.69 MG/DL (0.55-1.30); FERRITIN 67 NG/ML (8-252); FREE T4 1.24 NG/DL (0.76-1.46); GLOMERULAR FILTRATION RATE > 60.0 (>51); GLUCOSE, FASTING 103 MG/DL (70-100); HDL CHOLESTEROL 57 MG/DL (>40); IRON (FE) 67 UG/DL (50-170); LDL CHOLESTEROL 140 MG/DL (<100); NON-HDL-C 166 MG/DL; PERCENT SATURATION 24.5 % (13.2-45.0); POTASSIUM SERUM 4.3 MEQ/L (3.5-5.1); SODIUM LEVEL 144 MEQ/L (136-145); THYROID STIMULATING HORMONE 0.152 uIU/ML (0.358-3.740); TOTAL IRON BINDING CAPACITY 273 UG/DL (250-450); TOTAL PROTEIN 7.1 GM/DL (6.4-8.2); TRIGLYCERIDES LEVEL 132 MG/DL (<150)
[2021-03-25 13:47] LABS: VITAMIN B12 LEVEL 899 PG/ML (247-911)
== END ==
LOC: M PLALAB 10:43
PROVIDERS: ATTEND Nurse Practitioner Family
DX: E03.9 Hypothyroidism, unspecified (principal); E78.2 Mixed hyperlipidemia; Z98.84 Bariatric surgery status

== ENCOUNTER → 2021-05-20 | Outpatient (CLI) | payer OTHER ==
[2021-05-20 15:23] LABS: BASO % 0.7 % (0.0-1.0); EOS # 0.2 10^3/uL (0.0-0.5); EOS % 3.3 % (0.0-3.0); HEMATOCRIT 49.3 % (36.0-47.0); HEMOGLOBIN 15.4 g/dl (12.0-15.5); LYMPH # 2.7 10^3/uL (1.5-5.0); LYMPH % 47.4 % (24.0-44.0); MEAN CORPUSCULAR HEMOGLOBIN 29.3 pg (27.0-33.0); MEAN CORPUSCULAR HGB CONC 31.2 g/dl (32.0-36.5); MEAN CORPUSCULAR VOLUME 93.9 fl (80.0-96.0); MONO # 0.4 10^3/uL (0.0-0.8); MONO % 6.8 % (2.0-8.0); NEUTROPHILS # 2.4 10^3/uL (1.5-8.5); NEUTROPHILS % 41.4 % (36.0-66.0); PLATELET COUNT, AUTOMATED 338 10^3/uL (150-450); RED BLOOD COUNT 5.25 10^6/uL (4.00-5.40); WHITE BLOOD COUNT 5.7 10^3/uL (4.0-10.0)
[2021-05-20 16:00] LABS: ALBUMIN 3.9 GM/DL (3.2-5.2); THYROID STIMULATING HORMONE 0.055 uIU/ML (0.358-3.740)
== END ==
LOC: M PLALAB 12:29
PROVIDERS: ATTEND Orthopaedic Surgery
DX: Z01.818 Encounter for other preprocedural examination (principal); M25.569 Pain in unspecified knee; R53.1 Weakness; M19.90 Unspecified osteoarthritis, unspecified site

== ENCOUNTER 2021-06-01 08:43 | Outpatient (RCR) | payer OTHER | END 2021-06-22 | LOC: M PT 08:43 | PROVIDERS: ATTEND Orthopaedic Surgery | DX: M17.11 Unilateral primary osteoarthritis, right knee (principal) ==

== ENCOUNTER → 2021-06-03 | Outpatient (CLI) | payer OTHER ==
[2021-06-03 17:06] LABS: FREE T4 1.27 NG/DL (0.76-1.46); THYROID STIMULATING HORMONE 0.064 uIU/ML (0.358-3.740)
== END ==
LOC: M PLALAB 11:08
PROVIDERS: ATTEND Nurse Practitioner Family
DX: E89.0 Postprocedural hypothyroidism (principal)

== ENCOUNTER → 2021-06-16 | Outpatient (CLI) | payer OTHER | LOC: M RAD 10:03 | PROVIDERS: ATTEND Internal Medicine Pulmonary Disease | DX: J44.9 Chronic obstructive pulmonary disease, unspecified (principal); Z87.891 Personal history of nicotine dependence ==

== ENCOUNTER → 2021-06-25 | Outpatient (CLI) | payer OTHER | LOC: M LABSMTC 09:28 | PROVIDERS: ATTEND Orthopaedic Surgery | DX: Z11.52 Encounter for screening for COVID-19 (principal) ==

== ENCOUNTER → 2021-06-26 | Outpatient (CLI) | payer OTHER ==
[2021-06-26 13:58] LABS: BASO # 0.1 10^3/uL (0.0-0.2); BASO % 0.8 % (0.0-1.0); EOS # 0.1 10^3/uL (0.0-0.5); EOS % 1.8 % (0.0-3.0); HEMATOCRIT 50.5 % (36.0-47.0); HEMOGLOBIN 16.3 g/dl (12.0-15.5); LYMPH # 2.7 10^3/uL (1.5-5.0); LYMPH % 43.3 % (24.0-44.0); MEAN CORPUSCULAR HEMOGLOBIN 29.9 pg (27.0-33.0); MEAN CORPUSCULAR HGB CONC 32.3 g/dl (32.0-36.5); MEAN CORPUSCULAR VOLUME 92.5 fl (80.0-96.0); MONO # 0.4 10^3/uL (0.0-0.8); MONO % 6.1 % (2.0-8.0); NEUTROPHILS % 47.8 % (36.0-66.0); PLATELET COUNT, AUTOMATED 340 10^3/uL (150-450); RED BLOOD COUNT 5.46 10^6/uL (4.00-5.40); WHITE BLOOD COUNT 6.2 10^3/uL (4.0-10.0)
[2021-06-26 14:07] LABS: INR 0.91; PROTHROMBIN TIME 12.7 SECONDS (12.7-14.5)
[2021-06-26 14:58] LABS: ALBUMIN 4.2 GM/DL (3.2-5.2); ALT/SGPT 47 U/L (12-78); BILIRUBIN,TOTAL 0.4 MG/DL (0.2-1.0); BLOOD UREA NITROGEN 10 MG/DL (7-18); CALCIUM LEVEL 10.1 MG/DL (8.5-10.1); CARBON DIOXIDE LEVEL 30 MEQ/L (21-32); CHLORIDE LEVEL 109 MEQ/L (98-107); CREATININE FOR GFR 0.67 MG/DL (0.55-1.30); FERRITIN 57 NG/ML (8-252); GLOMERULAR FILTRATION RATE > 60.0 (>51); GLUCOSE, FASTING 90 MG/DL (70-100); NT-PRO BNP 70 PG/ML (<125); SODIUM LEVEL 141 MEQ/L (136-145); THYROID STIMULATING HORMONE 0.188 uIU/ML (0.358-3.740); TOTAL PROTEIN 7.6 GM/DL (6.4-8.2)
== END ==
LOC: M PLALAB 11:46
PROVIDERS: ATTEND Family Medicine
DX: E83.52 Hypercalcemia (principal); J44.9 Chronic obstructive pulmonary disease, unspecified; E03.9 Hypothyroidism, unspecified

== ENCOUNTER 2021-07-22 09:01 | Outpatient (RCR) | payer OTHER | END 2021-07-23 | LOC: M PT 09:01 | PROVIDERS: ATTEND Orthopaedic Surgery | DX: M25.561 Pain in right knee (principal) ==

== ENCOUNTER 2021-08-13 10:39 | Outpatient (RCR) | payer OTHER | END 2021-08-22 | LOC: M PT 10:39 | PROVIDERS: ATTEND Orthopaedic Surgery | DX: Z47.89 Encounter for other orthopedic aftercare (principal); Z96.651 Presence of right artificial knee joint; M25.561 Pain in right knee; M17.11 Unilateral primary osteoarthritis, right knee ==

== ENCOUNTER 2021-08-31 10:30 | Outpatient (RCR) | payer OTHER | END 2021-09-22 | LOC: M PT 10:30 | PROVIDERS: ATTEND Orthopaedic Surgery | DX: M17.11 Unilateral primary osteoarthritis, right knee (principal) ==

== ENCOUNTER → 2021-09-04 | Outpatient (CLI) | payer OTHER ==
[2021-09-04 14:13] LABS: FREE T4 1.14 NG/DL (0.76-1.46); THYROID STIMULATING HORMONE 0.5 uIU/ML (0.358-3.740)
== END ==
LOC: M PLALAB 09:19
PROVIDERS: ATTEND Nurse Practitioner Family
DX: E89.0 Postprocedural hypothyroidism (principal)

== ENCOUNTER → 2021-09-08 | Outpatient (REF) | payer OTHER ==
[2021-09-08 15:29] LABS: APPEARANCE, URINE HAZY (CLEAR); BACTERIA, URINE AUTO 1+ (NEGATIVE); BILIRUBIN, URINE AUTO NEGATIVE (NEGATIVE); BLOOD, URINE BLOOD NEGATIVE (NEGATIVE); CALCIUM OXALATE CRYSTALS SMALL; COLOR, URINE AMBER (YELLOW); GLUCOSE, URINE (UA) AUTO NEGATIVE (NEGATIVE); KETONE, URINE AUTO TRACE mg/dL (NEGATIVE); LEUKOCYTE ESTERASE, URINE AUTO 2+ (NEGATIVE); MUCUS, URINE SMALL (NEGATIVE); NITRITE, URINE AUTO NEGATIVE (NEGATIVE); PROTEIN, URINE AUTO 1+ mg/dL (NEGATIVE); RBC, URINE AUTO 9 /HPF (0-3); SPECIFIC GRAVITY URINE AUTO 1.034 (1.002-1.035); SQUAMOUS EPITHELIAL CELL UR AU 2 /HPF (0-6); WBC, URINE AUTO 51 /HPF (0-3)
== END ==
LOC: M SFHCPLAZ 15:03
PROVIDERS: ATTEND Nurse Practitioner Family
DX: N39.0 Urinary tract infection, site not specified (principal)

== ENCOUNTER → 2021-09-18 | Outpatient (CLI) | payer OTHER ==
[2021-09-18 13:52] LABS: BASO # 0.1 10^3/uL (0.0-0.2); BASO % 1.1 % (0.0-1.0); EOS # 0.2 10^3/uL (0.0-0.5); HEMATOCRIT 47.4 % (36.0-47.0); HEMOGLOBIN 15.4 g/dl (12.0-15.5); LYMPH # 2.7 10^3/uL (1.5-5.0); LYMPH % 36.1 % (24.0-44.0); MEAN CORPUSCULAR HEMOGLOBIN 30.9 pg (27.0-33.0); MEAN CORPUSCULAR HGB CONC 32.5 g/dl (32.0-36.5); MONO # 0.5 10^3/uL (0.0-0.8); MONO % 7.1 % (2.0-8.0); NEUTROPHILS # 4.1 10^3/uL (1.5-8.5); NEUTROPHILS % 53.6 % (36.0-66.0); PLATELET COUNT, AUTOMATED 339 10^3/uL (150-450); RED BLOOD COUNT 4.99 10^6/uL (4.00-5.40); WHITE BLOOD COUNT 7.6 10^3/uL (4.0-10.0)
[2021-09-18 14:16] LABS: ALBUMIN 3.9 GM/DL (3.2-5.2); ALT/SGPT 20 U/L (12-78); BILIRUBIN,TOTAL 0.5 MG/DL (0.2-1.0); BLOOD UREA NITROGEN 11 MG/DL (7-18); CALCIUM LEVEL 9.9 MG/DL (8.5-10.1); CARBON DIOXIDE LEVEL 32 MEQ/L (21-32); CHLORIDE LEVEL 108 MEQ/L (98-107); CHOLESTEROL LEVEL 275 MG/DL (<200); CHOLESTEROL RISK RATIO 2.989 (<5); CREATININE FOR GFR 0.69 MG/DL (0.55-1.30); GLOMERULAR FILTRATION RATE > 60.0 (>51); GLUCOSE, FASTING 77 MG/DL (70-100); HDL CHOLESTEROL 92 MG/DL (>40); IRON (FE) 92 UG/DL (50-170); LDL CHOLESTEROL 154 MG/DL (<100); NON-HDL-C 183 MG/DL; POTASSIUM SERUM 3.6 MEQ/L (3.5-5.1); SODIUM LEVEL 144 MEQ/L (136-145); TOTAL PROTEIN 7.5 GM/DL (6.4-8.2); TRIGLYCERIDES LEVEL 144 MG/DL (<150)
[2021-09-18 14:24] LABS: TOTAL 25(OH) VITAMIN D 41.9 NG/ML (30.0-100.0)
[2021-09-18 14:41] LABS: HEMOGLOBIN A1c 5.2 %
[2021-09-18 15:05] LABS: VITAMIN B12 LEVEL 733 PG/ML (247-911)
== END ==
LOC: M RAD 12:59
PROVIDERS: ATTEND Nurse Practitioner Family
DX: E78.2 Mixed hyperlipidemia (principal); Z98.84 Bariatric surgery status; M54.50 Low back pain, unspecified

== ENCOUNTER 2021-09-29 12:46 | Outpatient (RCR) | payer OTHER | END 2021-10-22 | LOC: M PT 12:46 | PROVIDERS: ATTEND Nurse Practitioner Family | DX: M54.50 Low back pain, unspecified (principal); R26.89 Other abnormalities of gait and mobility ==

== ENCOUNTER → 2022-01-08 | Outpatient (CLI) | payer OTHER | LOC: M RAD 10:20 | PROVIDERS: ATTEND Internal Medicine Pulmonary Disease | DX: Z12.2 Encounter for screening for malignant neoplasm of respiratory organs (principal); Z87.891 Personal history of nicotine dependence ==

== ENCOUNTER → 2022-01-28 | Outpatient (REF) | payer OTHER ==
[2022-01-28 13:41] LABS: BASO # 0.1 10^3/uL (0.0-0.2); BASO % 0.8 % (0.0-1.0); EOS # 0.2 10^3/uL (0.0-0.5); EOS % 2.7 % (0.0-3.0); HEMATOCRIT 43.4 % (36.0-47.0); HEMOGLOBIN 13.9 g/dl (12.0-15.5); LYMPH # 2.9 10^3/uL (1.5-5.0); LYMPH % 45.5 % (24.0-44.0); MEAN CORPUSCULAR HEMOGLOBIN 31.5 pg (27.0-33.0); MEAN CORPUSCULAR VOLUME 98.4 fl (80.0-96.0); MONO # 0.5 10^3/uL (0.0-0.8); MONO % 7.6 % (2.0-8.0); NEUTROPHILS # 2.8 10^3/uL (1.5-8.5); NEUTROPHILS % 43.2 % (36.0-66.0); PLATELET COUNT, AUTOMATED 365 10^3/uL (150-450); RED BLOOD COUNT 4.41 10^6/uL (4.00-5.40); WHITE BLOOD COUNT 6.4 10^3/uL (4.0-10.0)
[2022-01-28 14:38] LABS: ALBUMIN 3.5 GM/DL (3.2-5.2); PERCENT SATURATION 40.1 % (13.2-45.0); THYROID STIMULATING HORMONE 0.657 uIU/ML (0.358-3.740)
== END ==
LOC: M PLALAB 13:00
PROVIDERS: ATTEND Orthopaedic Surgery
DX: M25.562 Pain in left knee (principal); M17.12 Unilateral primary osteoarthritis, left knee; R53.1 Weakness

== ENCOUNTER → 2022-06-23 | Outpatient (CLI) | payer OTHER ==
[2022-06-23 16:15] LABS: BASO # 0.1 10^3/uL (0.0-0.2); BASO % 0.8 % (0.0-1.0); EOS # 0.1 10^3/uL (0.0-0.5); EOS % 1.5 % (0.0-3.0); HEMATOCRIT 47.5 % (36.0-47.0); HEMOGLOBIN 15.6 g/dl (12.0-15.5); LYMPH # 2.5 10^3/uL (1.5-5.0); LYMPH % 35.5 % (24.0-44.0); MEAN CORPUSCULAR HEMOGLOBIN 32.4 pg (27.0-33.0); MEAN CORPUSCULAR HGB CONC 32.8 g/dl (32.0-36.5); MEAN CORPUSCULAR VOLUME 98.8 fl (80.0-96.0); MONO # 0.5 10^3/uL (0.0-0.8); MONO % 7.1 % (2.0-8.0); NEUTROPHILS # 3.9 10^3/uL (1.5-8.5); NEUTROPHILS % 54.8 % (36.0-66.0); PLATELET COUNT, AUTOMATED 326 10^3/uL (150-450); RED BLOOD COUNT 4.81 10^6/uL (4.00-5.40); WHITE BLOOD COUNT 7.2 10^3/uL (4.0-10.0)
[2022-06-23 16:29] LABS: HEMOGLOBIN A1c 5.2 % (4.0-6.0)
[2022-06-23 16:36] LABS: ERYTHROCYTE SEDIMENTATION RATE 19 mm/hr (0-30)
[2022-06-23 16:42] LABS: TOTAL 25(OH) VITAMIN D 46.9 NG/ML (20.0-100.0)
[2022-06-23 16:43] LABS: THYROID STIMULATING HORMONE 1.867 uIU/ML (0.55-4.78)
[2022-06-23 16:44] LABS: FERRITIN 107.1 NG/ML (7.3-270.7)
[2022-06-23 16:45] LABS: ALBUMIN 4.2 G/DL (3.2-5.2); ALKALINE PHOSPHATASE 109 U/L (46-116); ALT/SGPT 30 U/L (7.0-40); AST/SGOT 42 U/L (<34); BILIRUBIN,TOTAL 0.8 MG/DL (0.3-1.2); BLOOD UREA NITROGEN 12 MG/DL (9-23); C REACTIVE PROTEIN QUANTITATIV < 0.40 MG/DL (<1.0); CALCIUM LEVEL 9.6 MG/DL (8.5-10.1); CARBON DIOXIDE LEVEL 32 MMOL/L (20-31); CHLORIDE LEVEL 101 MMOL/L (98-107); CHOLESTEROL LEVEL 232 MG/DL (<200); CHOLESTEROL RISK RATIO 2.05 (<5); CPK CREATINE PHOSPHOKINASE 77 U/L (34-145); FREE T4 1.14 NG/DL (0.89-1.76); GLOMERULAR FILTRATION RATE > 60.0 (>51); GLUCOSE, FASTING 102 MG/DL (60-100); HDL CHOLESTEROL 112.8 MG/DL (>40); IRON (FE) 106 UG/DL (50-170); LDL CHOLESTEROL 86.6 MG/DL (<100); NON-HDL-C 119 MG/DL; POTASSIUM SERUM 3.9 MMOL/L (3.5-5.1); SODIUM LEVEL 140 MMOL/L (136-145); TOTAL PROTEIN 7.3 G/DL (5.7-8.2); TRIGLYCERIDES LEVEL 163 MG/DL (<150)
[2022-06-23 16:47] LABS: VITAMIN B12 LEVEL 1058 PG/ML (211-911)
== END ==
LOC: M PLALAB 12:33
PROVIDERS: ATTEND Physician Assistant
DX: L65.9 Nonscarring hair loss, unspecified (principal); M89.8X9 Other specified disorders of bone, unspecified site; E03.9 Hypothyroidism, unspecified; E78.2 Mixed hyperlipidemia; Z98.84 Bariatric surgery status

== ENCOUNTER → 2022-10-05 | Outpatient (CLI) | payer OTHER ==
[2022-10-05 10:38] LABS: MAGNESIUM LEVEL 1.9 MG/DL (1.8-2.4)
[2022-10-05 10:44] LABS: FOLATE 14.6 NG/ML (>5.4); TOTAL 25(OH) VITAMIN D 40.9 NG/ML (20.0-100.0)
== END ==
LOC: M LAB 09:07
PROVIDERS: ATTEND Nurse Practitioner Family
DX: L65.9 Nonscarring hair loss, unspecified (principal)

== ENCOUNTER → 2022-10-28 | Outpatient (CLI) | payer OTHER | LOC: M PLAIMG 11:18 | PROVIDERS: ATTEND Family Medicine | DX: J44.1 Chronic obstructive pulmonary disease with (acute) exacerbation (principal) ==

== ENCOUNTER → 2022-11-09 | Outpatient (CLI) | payer OTHER ==
[~2022-11-09] MED LIST changes: +GASTROGRAFIN SOLUTION 30ML As Ordered ONE; +ISOVUE-370 76% 100ML VIAL As Ordered ONE
== END ==
LOC: M RAD 06:54
PROVIDERS: ATTEND Family Medicine
DX: R61 Generalized hyperhidrosis (principal); J44.9 Chronic obstructive pulmonary disease, unspecified
CPT/HCPCS: 71260; 74177; Q9963; Q9967

== ENCOUNTER → 2022-11-23 | Outpatient (CLI) | payer MEDICARE, MEDICAID ==
[~2022-11-23] MED LIST changes: +B-12100010 PO; +BIOT1CAP2 PO; +BUPR75TA5 PO; -GASTROGRAFIN SOLUTION 30ML As Ordered ONE; -ISOVUE-370 76% 100ML VIAL As Ordered ONE; +LEVO75TA4; +MELA10CA6 PO; +PARO20TA3; +ROPI1TAB73; +TOPI-254; +VITA100093; +ZYRTTAB8 PO
== END ==
LOC: M WHC 11-18 11:14
PROVIDERS: ATTEND Family Medicine
DX: Z12.31 Encounter for screening mammogram for malignant neoplasm of breast (principal)

== ENCOUNTER → 2023-01-07 | Outpatient (CLI) | payer MEDICARE, MEDICAID ==
[~2023-01-07] MED LIST changes: +BUSP1TAB PO; +IRON INFUSION; -LEVO75TA4; +LEVO75TA4 PO; +PANT40TA29 PO; -PARO20TA3; +PARO20TA3 PO; -ROPI1TAB73; +ROPI1TAB73 PO; +SUCR1TAB56 PO; -TOPI-254; +TOPI-254 PO; -VITA100093; +VITA100093 PO
== END ==
LOC: M PAIN 08:00
PROVIDERS: ATTEND Nurse Practitioner Family
DX: M25.561 Pain in right knee (principal); G89.29 Other chronic pain; J44.9 Chronic obstructive pulmonary disease, unspecified; E03.9 Hypothyroidism, unspecified; F41.1 Generalized anxiety disorder; G43.009 Migraine without aura, not intractable, without status migrainosus; K21.9 Gastro-esophageal reflux disease without esophagitis; E55.9 Vitamin D deficiency, unspecified; E66.9 Obesity, unspecified; F10.10 Alcohol abuse, uncomplicated; L63.0 Alopecia (capitis) totalis; G62.1 Alcoholic polyneuropathy; Z98.84 Bariatric surgery status; Z79.890 Hormone replacement therapy; Z79.899 Other long term (current) drug therapy; Z87.891 Personal history of nicotine dependence

== ENCOUNTER → 2023-01-28 | Outpatient (CLI) | payer MEDICARE, MEDICAID ==
[~2023-01-28] MED LIST changes: -IRON INFUSION
== END ==
LOC: M PLARAD 12:09
PROVIDERS: ATTEND Family Medicine
DX: R41.3 Other amnesia (principal)

== ENCOUNTER → 2023-02-01 | Outpatient (CLI) | payer MEDICARE, MEDICAID ==
[~2023-02-01] MED LIST changes: +IRON INFUSION
== END ==
LOC: M PLAIMG 08:16
PROVIDERS: ATTEND Nurse Practitioner Family
DX: M25.561 Pain in right knee (principal)

== ENCOUNTER 2023-02-02 08:06 | Emergency (ER) | payer MEDICARE, MEDICAID ==
[~2023-02-02] VITALS: Ht 157.5 cm; Wt 63.1 kg
[~2023-02-02 08:06] MED LIST changes: -IRON INFUSION
[2023-02-02] MEDS ORDERED: IRON INFUSION (08:37)
[2023-02-02] MEDS ORDERED: ISOVUE-370 76% 100ML VIAL As Ordered ONE (08:54)
[2023-02-02 09:09] LABS: BASO # 0.1 10^3/uL (0.0-0.2); BASO % 0.7 % (0.0-1.0); EOS % 0.6 % (0.0-3.0); HEMATOCRIT 41.3 % (36.0-47.0); HEMOGLOBIN 13.6 g/dl (12.0-15.5); LYMPH # 1.7 10^3/uL (1.5-5.0); LYMPH % 24.9 % (24.0-44.0); MEAN CORPUSCULAR HEMOGLOBIN 31.6 pg (27.0-33.0); MEAN CORPUSCULAR HGB CONC 32.9 g/dl (32.0-36.5); MEAN CORPUSCULAR VOLUME 95.8 fl (80.0-96.0); MONO # 0.5 10^3/uL (0.0-0.8); MONO % 7.1 % (2.0-8.0); NEUTROPHILS # 4.5 10^3/uL (1.5-8.5); NEUTROPHILS % 66.4 % (36.0-66.0); PLATELET COUNT, AUTOMATED 292 10^3/uL (150-450); RED BLOOD COUNT 4.31 10^6/uL (4.00-5.40); WHITE BLOOD COUNT 6.7 10^3/uL (4.0-10.0)
[2023-02-02 09:24] LABS: INR 1.06; PARTIAL THROMBOPLASTIN TIME 27.2 SECONDS (24.8-34.2); PROTHROMBIN TIME 13.5 SECONDS (12.5-14.5)
[2023-02-02 09:33] LABS: CK-MB VALUE MASS 2.5 NG/ML (<3.6)
[2023-02-02 09:35] LABS: BLOOD UREA NITROGEN 8 MG/DL (9-23); CARBON DIOXIDE LEVEL 27 MMOL/L (20-31); CHLORIDE LEVEL 108 MMOL/L (98-107); CPK CREATINE PHOSPHOKINASE 98 U/L (34-145); CREATININE FOR GFR 0.56 MG/DL (0.55-1.30); GLOMERULAR FILTRATION RATE > 60.0 (>51); GLUCOSE, FASTING 98 MG/DL (60-100); MB/CK RELATIVE INDEX 2.55 (< OR =4); POTASSIUM SERUM 3.4 MMOL/L (3.5-5.1); SODIUM LEVEL 148 MMOL/L (136-145)
[2023-02-02 09:41] LABS: RSV AMPLIFICATION NEGATIVE (NEGATIVE)
[2023-02-02 10:07] LABS: ALBUMIN 3.8 G/DL (3.2-5.2); ALKALINE PHOSPHATASE 126 U/L (46-116); ALT/SGPT 43 U/L (7.0-40); AST/SGOT 66 U/L (<34); BILIRUBIN,DIRECT 0.3 MG/DL (<0.4); BILIRUBIN,TOTAL 0.8 MG/DL (0.3-1.2)
[2023-02-02 10:10] LABS: FREE T4 1.17 NG/DL (0.89-1.76); THYROID STIMULATING HORMONE 2.564 uIU/ML (0.55-4.78)
[2023-02-02 13:24] VITALS: BP 128/76; TEMP 98.2; O2SAT 99
== END 2023-02-02 13:38 | disposition home or self-care (01) ==
LOC: M ED 08:06
DX: G25.3 Myoclonus (principal); J44.9 Chronic obstructive pulmonary disease, unspecified; Z98.84 Bariatric surgery status; Z87.891 Personal history of nicotine dependence; Z79.899 Other long term (current) drug therapy
CPT/HCPCS: 36415; 70450; 70496; 70498; 70551; 71045; 80047; 80048; 80076; 82550; 82553; 84439; 84443; 84484; 85025; 85610; 85730; 87631; 93005; 93041; 94760; 99285; Q9967

== ENCOUNTER 2023-02-19 19:59 | Inpatient (IN) | payer MEDICARE, MEDICAID ==
[~2023-02-19] VITALS: Ht 157.5 cm; Wt 66.2 kg
[~2023-02-19 19:59] MED LIST changes: +IRON INFUSION
[2023-02-19] MEDS ORDERED: NS 1,000 ML IV ONE (20:05)
[2023-02-19] MEDS ORDERED: MORPHINE 4 MG/ML 1ML VIAL IV ONE ×2 (20:15→22:30)
[2023-02-19] MEDS ORDERED: MIDAZOLAM INJ 2MG/2ML VIAL IV STA (20:16)
[2023-02-19] MEDS ORDERED: fentaNYL 100 MCG/2 ML INJECTION IV ONE ×2 (20:20)
[2023-02-19] MEDS ORDERED: ISOVUE-370 76% 100ML VIAL As Ordered ONE (20:36)
[2023-02-19 20:45] LABS: EOS % 0.5 % (0.0-3.0); HEMATOCRIT 37.3 % (36.0-47.0); HEMOGLOBIN 12.1 g/dl (12.0-15.5); LYMPH # 2.5 10^3/uL (1.5-5.0); MEAN CORPUSCULAR HEMOGLOBIN 32.4 pg (27.0-33.0); MEAN CORPUSCULAR HGB CONC 32.4 g/dl (32.0-36.5); MEAN CORPUSCULAR VOLUME 99.7 fl (80.0-96.0); MONO # 0.2 10^3/uL (0.0-0.8); MONO % 5.1 % (2.0-8.0); NEUTROPHILS # 1.1 10^3/uL (1.5-8.5); NEUTROPHILS % 29.1 % (36.0-66.0); PLATELET COUNT, AUTOMATED 288 10^3/uL (150-450); RED BLOOD COUNT 3.74 10^6/uL (4.00-5.40); WHITE BLOOD COUNT 3.9 10^3/uL (4.0-10.0)
[2023-02-19 20:57] LABS: RSV AMPLIFICATION NEGATIVE (NEGATIVE)
[2023-02-19 21:09] LABS: ETHYL ALCOHOL (ETHANOL) 0.251 % (0.000-0.010); INR 0.99; LIPASE 27 U/L (12-53); PROTHROMBIN TIME 12.8 SECONDS (12.5-14.5)
[2023-02-19 21:10] LABS: CK-MB VALUE MASS 1.4 NG/ML (<3.6); PARTIAL THROMBOPLASTIN TIME 26.3 SECONDS (24.8-34.2)
[2023-02-19 21:11] LABS: ALKALINE PHOSPHATASE 106 U/L (46-116); ALT/SGPT 57 U/L (7.0-40); AMYLASE 26 U/L (30-118); AST/SGOT 187 U/L (<34); BILIRUBIN,DIRECT < 0.1 MG/DL (<0.4); BILIRUBIN,TOTAL 0.2 MG/DL (0.3-1.2); CPK CREATINE PHOSPHOKINASE 105 U/L (34-145); MB/CK RELATIVE INDEX 1.33 (< OR =4); TOTAL PROTEIN 5.6 G/DL (5.7-8.2)
[2023-02-19] MEDS ORDERED: CVS-161 PO (23:07)
[2023-02-19] MEDS ORDERED: ZYRT10TA12 PO (23:07)
[2023-02-19] MEDS ORDERED: PANT40TA29 PO (23:07)
[2023-02-19] MEDS ORDERED: HOME MED LIST COMPLETE! XX SCH (23:10)
[2023-02-19] MEDS ORDERED: B-1100TA2 PO (23:23)
[2023-02-19] MEDS ORDERED: ADVA230A PO (23:23)
[2023-02-19] MEDS ORDERED: ONDANSETRON 4MG 2ML VIAL IV PRN (23:25)
[2023-02-19] MEDS ORDERED: HYDROMORPHONE HCL 0.5 MG/ 0.5 ML SYRINGE IV PRN (23:25)
[2023-02-19] MEDS ORDERED: LORazepam 2 MG TAB XX PRN (23:25)
[2023-02-19] MEDS ORDERED: ALBUTEROL 90 MCG/ACT 8GM HFA INHALER INH PRN (23:25)
[2023-02-19] MEDS ORDERED: RAMELTEON 8 MG TAB (ROZEREM) PO PRN (23:25)
[2023-02-19] MEDS ORDERED: MORPHINE 2 MG/ML 1ML VIAL IV ONE (23:45)
[2023-02-20] VITALS (8 sets, daily range): BP systolic 110–127; BP diastolic 71–77; TEMP 96.6–97.5; O2SAT 93–97
[2023-02-20] MEDS ORDERED: LORazepam 2 MG/ML 1ML VIAL IV PRN
[2023-02-20] MEDS: LR 1,000 ML IV SCH ×3 (00:27→20:20)
[2023-02-20] MEDS ORDERED: LR 1,000 ML IV ONE (02:00)
[2023-02-20 03:56] LABS: HEPATITIS B CORE ANTIBODY IGM NEGATIVE (NEGATIVE); HEPATITIS C VIRUS ABY INDEX 0.05 INDEX (<0.8)
[2023-02-20] MEDS: OXAZEPAM 10MG CAP PO SCH ×4 (05:29→23:02)
[2023-02-20] MEDS: LEVOTHYROXINE 75MCG TABLET (0.075MG) PO SCH (05:29)
[2023-02-20] MEDS: HYDROMORPHONE HCL 0.5 MG/ 0.5 ML SYRINGE IV PRN ×2 (05:30→23:02)
[2023-02-20 05:40] LABS: APPEARANCE, URINE CLEAR (CLEAR); BACTERIA, URINE AUTO NEGATIVE (NEGATIVE); BILIRUBIN, URINE AUTO NEGATIVE (NEGATIVE); BLOOD, URINE BLOOD NEGATIVE (NEGATIVE); COLOR, URINE YELLOW (YELLOW); GLUCOSE, URINE (UA) AUTO NEGATIVE (NEGATIVE); KETONE, URINE AUTO NEGATIVE (NEGATIVE); LEUKOCYTE ESTERASE, URINE AUTO 2+ (NEGATIVE); NITRITE, URINE AUTO NEGATIVE (NEGATIVE); PROTEIN, URINE AUTO NEGATIVE (NEGATIVE); RBC, URINE AUTO 0 /HPF (0-3); SPECIFIC GRAVITY URINE AUTO 1.058 (1.002-1.035); SQUAMOUS EPITHELIAL CELL UR AU 4 /HPF (0-6); UROBILINOGEN, URINE AUTO 0.2 mg/dL (0.0-2.0); WBC, URINE AUTO 12 /HPF (0-3)
[2023-02-20 06:04] LABS: AMPHETAMINES LEVEL URINE NEGATIVE (NEGATIVE); BARBITURATES URINE NEGATIVE (NEGATIVE); COCAINE METABOLITE URINE NEGATIVE (NEGATIVE); METHADONE URINE NEGATIVE (NEGATIVE); PHENCYCLIDINE URINE NEGATIVE (NEGATIVE)
[2023-02-20 06:20] LABS: BENZODIAZEPINES URINE POSITIVE (NEGATIVE); CANNABINOIDS URINE POSITIVE (NEGATIVE); OPIATES URINE POSITIVE (NEGATIVE)
[2023-02-20 06:50] LABS: HEMATOCRIT 33.9 % (36.0-47.0); HEMOGLOBIN 10.9 g/dl (12.0-15.5); MEAN CORPUSCULAR HEMOGLOBIN 32.2 pg (27.0-33.0); MEAN CORPUSCULAR HGB CONC 32.2 g/dl (32.0-36.5); PLATELET COUNT, AUTOMATED 240 10^3/uL (150-450); RED BLOOD COUNT 3.39 10^6/uL (4.00-5.40)
[2023-02-20 07:14] LABS: BLOOD UREA NITROGEN 8 MG/DL (9-23); CALCIUM LEVEL 7.8 MG/DL (8.5-10.1); CARBON DIOXIDE LEVEL 25 MMOL/L (20-31); CHLORIDE LEVEL 107 MMOL/L (98-107); CREATININE FOR GFR 0.49 MG/DL (0.55-1.30); GLOMERULAR FILTRATION RATE > 60.0 (>51); GLUCOSE, FASTING 77 MG/DL (60-100); MAGNESIUM LEVEL 1.9 MG/DL (1.8-2.4); POTASSIUM SERUM 3.6 MMOL/L (3.5-5.1); SODIUM LEVEL 143 MMOL/L (136-145)
[2023-02-20] MEDS: ADVAIR HFA 230/21MCG INHALER INH SCH ×2 (07:40→20:29)
[2023-02-20 08:02] LABS: ALBUMIN 2.7 G/DL (3.2-5.2); ALKALINE PHOSPHATASE 114 U/L (46-116); ALT/SGPT 67 U/L (7.0-40); AST/SGOT 226 U/L (<34); BILIRUBIN,DIRECT 0.1 MG/DL (<0.4); BILIRUBIN,TOTAL 0.3 MG/DL (0.3-1.2)
[2023-02-20] MEDS ORDERED: PANTOPRAZOLE 40MG TAB (PROTONIX) PO SCH (09:00)
[2023-02-20] MEDS ORDERED: TRANEXAMIC ACID 100 MG/ML 10ML VIAL As Ordered ONE (09:27)
[2023-02-20] MEDS ORDERED: ceFAZolin 2 GM/D5W 50 ML IV BAG As Ordered ONE (09:27)
[2023-02-20] MEDS ORDERED: propofoL 200 MG/20 ML VIAL As Ordered ONE (10:34)
[2023-02-20] MEDS ORDERED: ONDANSETRON 4MG 2ML VIAL As Ordered ONE (10:34)
[2023-02-20] MEDS ORDERED: ROCURONIUM BROMIDE 50MG/5ML VIAL As Ordered ONE ×2 (10:34→10:51)
[2023-02-20] MEDS ORDERED: dexmedeTOMIDine (4MCG/ML)200MCG/50ML BTL (PRECEDEX) As Ordered ONE (10:34)
[2023-02-20] MEDS ORDERED: fentaNYL 100 MCG/2 ML INJECTION As Ordered ONE ×2 (10:34→10:37)
[2023-02-20] MEDS ORDERED: KETOROLAC 60MG 2ML VIAL As Ordered ONE (10:34)
[2023-02-20] MEDS ORDERED: LIDOCAINE 2% 100MG/5ML SDV (FOR ANES.) As Ordered ONE (10:34)
[2023-02-20] MEDS ORDERED: SUGAMMADEX SODIUM 500 MG/5 ML VIAL (BRIDION) As Ordered ONE (10:34)
[2023-02-20] MEDS ORDERED: ACETAMINOPHEN 1000MG 100ML IV BAG As Ordered ONE (10:34)
[2023-02-20] MEDS ORDERED: MIDAZOLAM INJ 2MG/2ML VIAL As Ordered ONE (10:34)
[2023-02-20] MEDS ORDERED: HYDROmorphone HCL 2MG/ML 1ML VIAL As Ordered ONE (11:59)
[2023-02-20] MEDS ORDERED: VANCOMYCIN 1000MG/20ML VIAL As Ordered ONE (12:09)
[2023-02-20] MEDS ORDERED: ONDANSETRON 4MG 2ML VIAL IV PRN (13:05)
[2023-02-20] MEDS ORDERED: LR 1,000 ML IV SCH (13:05)
[2023-02-20] MEDS ORDERED: fentaNYL 100 MCG/2 ML INJECTION IV PRN (13:05)
[2023-02-20] MEDS ORDERED: HYDROMORPHONE HCL 0.5 MG/ 0.5 ML SYRINGE IV PRN (13:05)
[2023-02-20] MEDS ORDERED: oxyCODONE 5MG TAB PO PRN (13:05)
[2023-02-20] MEDS ORDERED: LORazepam 1 MG TAB PO ONE (13:30)
[2023-02-20] MEDS: PARoxetine 20MG TABLET PO SCH (14:35)
[2023-02-20] MEDS: busPIRone 5 MG TAB PO SCH ×2 (14:36→20:20)
[2023-02-20] MEDS: CETIRIZINE (ZyrTEC) 10 MG TAB PO SCH (14:36)
[2023-02-20] MEDS: THIAMINE 100 MG TAB PO SCH ×2 (14:36→20:20)
[2023-02-20] MEDS: MULTIVITAMINS/MINERALS THERAP 1 TAB PO SCH (14:36)
[2023-02-20] MEDS: FOLIC ACID 1MG TAB PO SCH (14:36)
[2023-02-20] MEDS: TOPIRAMATE (TopAMAX) 25 MG TAB PO SCH (14:36)
[2023-02-20] MEDS: rOPINIRole 1MG TAB PO SCH (20:20)
[2023-02-20] MEDS: ACETAMINOPHEN TAB 650MG DOSE (2X325MG) PO PRN (20:34)
[2023-02-21] VITALS (7 sets, daily range): BP systolic 99–117; BP diastolic 61–70; TEMP 96.8–100.7; O2SAT 92–97
[2023-02-21] MEDS: HYDROMORPHONE HCL 0.5 MG/ 0.5 ML SYRINGE IV PRN (02:29)
[2023-02-21] MEDS: OXAZEPAM 10MG CAP PO SCH (05:24)
[2023-02-21] MEDS: ACETAMINOPHEN TAB 650MG DOSE (2X325MG) PO PRN (05:25)
[2023-02-21] MEDS: LEVOTHYROXINE 75MCG TABLET (0.075MG) PO SCH (05:25)
[2023-02-21] MEDS: LR 1,000 ML IV SCH (05:25)
[2023-02-21] MEDS ORDERED: MORPHINE 10 MG/ML 1ML VIAL IV PRN (07:10)
[2023-02-21] MEDS ORDERED: ACETAMINOPHEN TAB 650MG DOSE (2X325MG) PO PRN (07:10)
[2023-02-21] MEDS ORDERED: PANTOPRAZOLE 40MG VIAL IV SCH (07:10)
[2023-02-21] MEDS ORDERED: KETOROLAC 30 MG/ML 1ML VIAL IV PRN (07:10)
[2023-02-21] MEDS: ADVAIR HFA 230/21MCG INHALER INH SCH ×2 (07:50→20:42)
[2023-02-21] MEDS: KETOROLAC 30 MG/ML 1ML VIAL IV PRN ×2 (07:58→14:05)
[2023-02-21] MEDS: oxyCODONE 5MG TAB PO PRN ×4 (07:58→20:24)
[2023-02-21 08:23] LABS: BASO % 0.6 % (0.0-1.0); EOS % 0.4 % (0.0-3.0); HEMATOCRIT 29.3 % (36.0-47.0); LYMPH # 1.4 10^3/uL (1.5-5.0); LYMPH % 26.4 % (24.0-44.0); MEAN CORPUSCULAR HGB CONC 30.7 g/dl (32.0-36.5); MEAN CORPUSCULAR VOLUME 104.3 fl (80.0-96.0); MONO # 0.5 10^3/uL (0.0-0.8); MONO % 9.1 % (2.0-8.0); NEUTROPHILS # 3.3 10^3/uL (1.5-8.5); NEUTROPHILS % 63.1 % (36.0-66.0); PLATELET COUNT, AUTOMATED 197 10^3/uL (150-450); RED BLOOD COUNT 2.81 10^6/uL (4.00-5.40); WHITE BLOOD COUNT 5.2 10^3/uL (4.0-10.0)
[2023-02-21 08:46] LABS: CPK CREATINE PHOSPHOKINASE 741 U/L (34-145)
[2023-02-21 08:47] LABS: ALBUMIN 2.3 G/DL (3.2-5.2); ALKALINE PHOSPHATASE 169 U/L (46-116); ALT/SGPT 60 U/L (7.0-40); AST/SGOT 191 U/L (<34); BILIRUBIN,TOTAL 0.5 MG/DL (0.3-1.2); BLOOD UREA NITROGEN 8 MG/DL (9-23); CARBON DIOXIDE LEVEL 25 MMOL/L (20-31); CHLORIDE LEVEL 109 MMOL/L (98-107); CREATININE FOR GFR 0.53 MG/DL (0.55-1.30); GLOMERULAR FILTRATION RATE > 60.0 (>51); GLUCOSE, FASTING 129 MG/DL (60-100); POTASSIUM SERUM 3.6 MMOL/L (3.5-5.1); SODIUM LEVEL 144 MMOL/L (136-145); TOTAL PROTEIN 4.5 G/DL (5.7-8.2)
[2023-02-21] MEDS: TOPIRAMATE (TopAMAX) 25 MG TAB PO SCH (09:23)
[2023-02-21] MEDS: busPIRone 5 MG TAB PO SCH ×2 (09:23→20:24)
[2023-02-21] MEDS: MULTIVITAMINS/MINERALS THERAP 1 TAB PO SCH (09:23)
[2023-02-21] MEDS: PARoxetine 20MG TABLET PO SCH (09:24)
[2023-02-21] MEDS: THIAMINE 100 MG TAB PO SCH ×2 (09:24→20:23)
[2023-02-21] MEDS: CETIRIZINE (ZyrTEC) 10 MG TAB PO SCH (09:24)
[2023-02-21] MEDS: FOLIC ACID 1MG TAB PO SCH (09:24)
[2023-02-21] MEDS: PANTOPRAZOLE 40MG TAB (PROTONIX) PO SCH ×2 (09:24→20:24)
[2023-02-21] MEDS: ENOXAPARIN 40MG/0.4ML SYRINGE (J1650 PER 10MG) SC SCH (13:56)
[2023-02-21] MEDS: rOPINIRole 1MG TAB PO SCH (20:23)
[2023-02-22 00:13] VITALS: BP 115/76; TEMP 98.7
[2023-02-22] MEDS: oxyCODONE 5MG TAB PO PRN ×2 (00:32→04:51)
[2023-02-22 04:44] VITALS: BP 128/74; TEMP 97; O2SAT 98
[2023-02-22] MEDS: LEVOTHYROXINE 75MCG TABLET (0.075MG) PO SCH (04:50)
[2023-02-22 07:07] LABS: HEMATOCRIT 31.6 % (36.0-47.0); HEMOGLOBIN 9.9 g/dl (12.0-15.5); MEAN CORPUSCULAR HEMOGLOBIN 32.8 pg (27.0-33.0); MEAN CORPUSCULAR HGB CONC 31.3 g/dl (32.0-36.5); MEAN CORPUSCULAR VOLUME 104.6 fl (80.0-96.0); PLATELET COUNT, AUTOMATED 224 10^3/uL (150-450); RED BLOOD COUNT 3.02 10^6/uL (4.00-5.40); WHITE BLOOD COUNT 4.8 10^3/uL (4.0-10.0)
[2023-02-22] MEDS ORDERED: PERCOCET 5MG/325MG TAB PO ONE (07:15)
[2023-02-22] MEDS ORDERED: KETOROLAC 30 MG/ML 1ML VIAL IV ONE ×2 (07:15→13:00)
[2023-02-22] MEDS ORDERED: PERC5TAB12 PO (07:21)
[2023-02-22] MEDS ORDERED: SENO8.6T10 PO (07:21)
[2023-02-22 07:41] LABS: CPK CREATINE PHOSPHOKINASE 543 U/L (34-145)
[2023-02-22 07:47] LABS: ALBUMIN 2.2 G/DL (3.2-5.2); ALKALINE PHOSPHATASE 219 U/L (46-116); ALT/SGPT 57 U/L (7.0-40); AST/SGOT 140 U/L (<34); BILIRUBIN,TOTAL 1.2 MG/DL (0.3-1.2); BLOOD UREA NITROGEN 10 MG/DL (9-23); CALCIUM LEVEL 7.8 MG/DL (8.5-10.1); CARBON DIOXIDE LEVEL 30 MMOL/L (20-31); CHLORIDE LEVEL 108 MMOL/L (98-107); CREATININE FOR GFR 0.54 MG/DL (0.55-1.30); GLOMERULAR FILTRATION RATE > 60.0 (>51); GLUCOSE, FASTING 89 MG/DL (60-100); POTASSIUM SERUM 3.8 MMOL/L (3.5-5.1); SODIUM LEVEL 144 MMOL/L (136-145); TOTAL PROTEIN 4.6 G/DL (5.7-8.2)
[2023-02-22] MEDS: ADVAIR HFA 230/21MCG INHALER INH SCH (08:08)
[2023-02-22] MEDS: ENOXAPARIN 40MG/0.4ML SYRINGE (J1650 PER 10MG) SC SCH (09:43)
[2023-02-22] MEDS: CETIRIZINE (ZyrTEC) 10 MG TAB PO SCH (09:43)
[2023-02-22] MEDS: FOLIC ACID 1MG TAB PO SCH (09:43)
[2023-02-22] MEDS: busPIRone 5 MG TAB PO SCH (09:44)
[2023-02-22] MEDS: THIAMINE 100 MG TAB PO SCH (09:44)
[2023-02-22] MEDS: TOPIRAMATE (TopAMAX) 25 MG TAB PO SCH (09:44)
[2023-02-22] MEDS: MULTIVITAMINS/MINERALS THERAP 1 TAB PO SCH (09:44)
[2023-02-22] MEDS: PARoxetine 20MG TABLET PO SCH (09:45)
[2023-02-22] MEDS: PANTOPRAZOLE 40MG TAB (PROTONIX) PO SCH (09:45)
[2023-02-22] MEDS ORDERED: PERCOCET 5MG/325MG TAB PO SCH (13:00)
== END 2023-02-22 11:30 | disposition home health service (06) | DRG 511 ==
LOC: M ED 19:59 → EDBD 19:59 → M ED INP 23:21 → M MS5PR 02-20 00:14
PROVIDERS: ADMIT Internal Medicine; ATTEND General Practice
PROC: 0PSK04Z Reposition Right Ulna with Internal Fixation Device, Open Approach (ICD-10-PCS; 2023-02-20)
PROC: 0PSH04Z Reposition Right Radius with Internal Fixation Device, Open Approach (ICD-10-PCS; principal; 2023-02-20 10:00)
DX: S52.231A Displaced oblique fracture of shaft of right ulna, initial encounter for closed fracture (principal); E87.20 Acidosis, unspecified; S52.251A Displaced comminuted fracture of shaft of ulna, right arm, initial encounter for closed fracture; S52.021A Displaced fracture of olecranon process without intraarticular extension of right ulna, initial encounter for closed fracture; T79.6XXA Traumatic ischemia of muscle, initial encounter; R19.7 Diarrhea, unspecified; D50.9 Iron deficiency anemia, unspecified; J45.909 Unspecified asthma, uncomplicated; E03.9 Hypothyroidism, unspecified; F41.9 Anxiety disorder, unspecified; F32.A Depression, unspecified; K21.9 Gastro-esophageal reflux disease without esophagitis; F17.290 Nicotine dependence, other tobacco product, uncomplicated; V48.5XXA Car driver injured in noncollision transport accident in traffic accident, initial encounter; Y92.410 Unspecified street and highway as the place of occurrence of the external cause; Y99.8 Other external cause status; Y93.9 Activity, unspecified; F10.10 Alcohol abuse, uncomplicated; G25.81 Restless legs syndrome; R11.2 Nausea with vomiting, unspecified; R74.01 Elevation of levels of liver transaminase levels; Z79.890 Hormone replacement therapy; Z79.899 Other long term (current) drug therapy; Z98.84 Bariatric surgery status; Z96.651 Presence of right artificial knee joint

== ENCOUNTER → 2023-03-07 | Outpatient (REF) | payer MEDICARE, MEDICAID ==
[~2023-03-07] MED LIST changes: +ADVA230A PO; +B-1100TA2 PO; +CVS-161 PO; +PERC5TAB12 PO; +SENO8.6T10 PO; +ZYRT10TA12 PO
[2023-03-07 12:35] LABS: ALBUMIN 2.8 G/DL (3.2-5.2); ALKALINE PHOSPHATASE 274 U/L (46-116); ALT/SGPT 25 U/L (7.0-40); AST/SGOT 35 U/L (<34); BILIRUBIN,TOTAL 0.4 MG/DL (0.3-1.2); BLOOD UREA NITROGEN 6 MG/DL (9-23); CALCIUM LEVEL 9.1 MG/DL (8.5-10.1); CARBON DIOXIDE LEVEL 29 MMOL/L (20-31); CHLORIDE LEVEL 105 MMOL/L (98-107); CREATININE FOR GFR 0.52 MG/DL (0.55-1.30); GLOMERULAR FILTRATION RATE > 60.0 (>51); GLUCOSE, FASTING 86 MG/DL (60-100); POTASSIUM SERUM 4.6 MMOL/L (3.5-5.1); SODIUM LEVEL 143 MMOL/L (136-145); THYROID STIMULATING HORMONE 0.127 uIU/ML (0.55-4.78); TOTAL PROTEIN 5.9 G/DL (5.7-8.2)
[2023-03-07 12:36] LABS: FREE T4 1.12 NG/DL (0.89-1.76)
== END ==
LOC: M LAB REF 11:08
PROVIDERS: ATTEND Family Medicine
DX: R41.3 Other amnesia (principal); R74.01 Elevation of levels of liver transaminase levels

== ENCOUNTER → 2023-03-07 | Outpatient (CLI) | payer MEDICARE, MEDICAID | LOC: M SOG 07:55 | PROVIDERS: ATTEND Physician Assistant | DX: R41.3 Other amnesia (principal); R74.01 Elevation of levels of liver transaminase levels; M24.831 Other specific joint derangements of right wrist, not elsewhere classified; M19.031 Primary osteoarthritis, right wrist ==

== ENCOUNTER → 2023-03-23 | Outpatient (CLI) | payer MEDICARE, MEDICAID | LOC: M SOG 07:51 | PROVIDERS: ATTEND Orthopaedic Surgery | DX: M25.531 Pain in right wrist (principal) ==

== ENCOUNTER → 2023-04-28 | Outpatient (CLI) | payer MEDICARE, MEDICAID ==
[~2023-04-28] MED LIST changes: +TOPI-21 PO; -TOPI-254 PO
== END ==
LOC: M SOG 08:22
PROVIDERS: ATTEND Physician Assistant
DX: S52.201D Unspecified fracture of shaft of right ulna, subsequent encounter for closed fracture with routine healing (principal); Y93.9 Activity, unspecified; Y92.9 Unspecified place or not applicable

== ENCOUNTER 2023-05-13 22:55 | Emergency (ER) | payer OTHER, MEDICAID ==
[~2023-05-13] VITALS: Ht 154.9 cm; Wt 54.0 kg
[2023-05-14] MEDS ORDERED: LORazepam 2 MG TAB PO ONE (00:10)
[2023-05-14] MEDS ORDERED: diphenhydrAMINE 50MG/ML VIAL IM ONE (01:45)
[2023-05-14] MEDS ORDERED: HALOPERIDOL 5MG/ML 1ML VIAL IM ONE (01:45)
[2023-05-14] MEDS ORDERED: LORazepam 2 MG/ML 1ML VIAL IM ONE (01:45)
[2023-05-14] MEDS ORDERED: MED REC CURRENTLY UNOBTAINABLE XX SCH (02:10)
[2023-05-14 02:31] LABS: HEMATOCRIT 51.6 % (36.0-47.0); HEMOGLOBIN 17.1 g/dl (12.0-15.5); MEAN CORPUSCULAR HEMOGLOBIN 33.3 pg (27.0-33.0); MEAN CORPUSCULAR HGB CONC 33.1 g/dl (32.0-36.5); MEAN CORPUSCULAR VOLUME 100.6 fl (80.0-96.0); PLATELET COUNT, AUTOMATED 524 10^3/uL (150-450); RED BLOOD COUNT 5.13 10^6/uL (4.00-5.40); WHITE BLOOD COUNT 5.8 10^3/uL (4.0-10.0)
[2023-05-14 03:00] LABS: ETHYL ALCOHOL (ETHANOL) 0.124 % (0.000-0.010)
[2023-05-14 03:01] LABS: SALICYLATE LEVEL < 3.0 MG/DL (<30)
[2023-05-14 03:02] LABS: ALBUMIN 3.2 G/DL (3.2-5.2); ALKALINE PHOSPHATASE 136 U/L (46-116); ALT/SGPT 21 U/L (7.0-40); AST/SGOT 23 U/L (<34); BILIRUBIN,DIRECT < 0.1 MG/DL (<0.4); BILIRUBIN,TOTAL 0.2 MG/DL (0.3-1.2); BLOOD UREA NITROGEN 6 MG/DL (9-23); CALCIUM LEVEL 8.8 MG/DL (8.5-10.1); CARBON DIOXIDE LEVEL 28 MMOL/L (20-31); CHLORIDE LEVEL 106 MMOL/L (98-107); CREATININE FOR GFR 0.49 MG/DL (0.55-1.30); GLOMERULAR FILTRATION RATE > 60.0 (>51); GLUCOSE, FASTING 122 MG/DL (60-100); POTASSIUM SERUM 4.3 MMOL/L (3.5-5.1); SODIUM LEVEL 142 MMOL/L (136-145); TOTAL PROTEIN 6.5 G/DL (5.7-8.2)
[2023-05-14 03:04] LABS: THYROID STIMULATING HORMONE 1.173 uIU/ML (0.55-4.78)
[2023-05-14 10:06] VITALS: BP 125/67; TEMP 97; O2SAT 97
[2023-05-14 10:27] LABS: AMPHETAMINES LEVEL URINE NEGATIVE (NEGATIVE); BARBITURATES URINE NEGATIVE (NEGATIVE); BENZODIAZEPINES URINE NEGATIVE (NEGATIVE); METHADONE URINE NEGATIVE (NEGATIVE); OPIATES URINE NEGATIVE (NEGATIVE); PHENCYCLIDINE URINE NEGATIVE (NEGATIVE)
[2023-05-14 10:28] LABS: CANNABINOIDS URINE POSITIVE (NEGATIVE); COCAINE METABOLITE URINE POSITIVE (NEGATIVE)
== END 2023-05-14 10:18 | disposition home or self-care (01) ==
LOC: M ED 22:55
DX: F10.129 Alcohol abuse with intoxication, unspecified (principal); F12.90 Cannabis use, unspecified, uncomplicated; Z98.84 Bariatric surgery status

== ENCOUNTER → 2023-06-21 | Outpatient (CLI) | payer OTHER, MEDICAID ==
[~2023-06-21] MED LIST changes: +ISOVUE-300 61% 100ML VIAL As Ordered ONE; +LIDOCAINE 1% MDV 20ML VIAL As Ordered ONE; +PROHANCE 279.3MG/ML 5ML VIAL As Ordered ONE
== END ==
LOC: M RAD 06:39
PROVIDERS: ATTEND Physician Assistant
DX: S63.521A Sprain of radiocarpal joint of right wrist, initial encounter (principal); X58.XXXA Exposure to other specified factors, initial encounter; Y92.9 Unspecified place or not applicable
CPT/HCPCS: 25246; 73223; 77002; A9576; Q9967

== ENCOUNTER → 2023-07-07 | Outpatient (CLI) | payer OTHER, MEDICAID ==
[~2023-07-07] MED LIST changes: -ISOVUE-300 61% 100ML VIAL As Ordered ONE; -LIDOCAINE 1% MDV 20ML VIAL As Ordered ONE; -PROHANCE 279.3MG/ML 5ML VIAL As Ordered ONE
== END ==
LOC: M SOG 09:37
PROVIDERS: ATTEND Physician Assistant
DX: M25.531 Pain in right wrist (principal); M25.621 Stiffness of right elbow, not elsewhere classified

== ENCOUNTER 2023-07-26 10:27 | Emergency (ER) | payer OTHER, MEDICAID ==
[~2023-07-26] VITALS: Ht 157.5 cm; Wt 56.8 kg
[2023-07-26 10:28] VITALS: BP 143/80; TEMP 97.3; O2SAT 99
== END 2023-07-26 10:59 | disposition left against medical advice (07) ==
LOC: M ED 10:27
DX: Z53.21 Procedure and treatment not carried out due to patient leaving prior to being seen by health care provider (principal)

== ENCOUNTER → 2023-07-29 | Outpatient (CLI) | payer OTHER, MEDICAID | LOC: M SOG 08:12 | PROVIDERS: ATTEND Physician Assistant | DX: S52.201D Unspecified fracture of shaft of right ulna, subsequent encounter for closed fracture with routine healing (principal); M25.531 Pain in right wrist; Y93.9 Activity, unspecified; Y92.9 Unspecified place or not applicable ==

== ENCOUNTER → 2023-08-05 | Outpatient (CLI) | payer OTHER, MEDICAID ==
[2023-08-05 15:38] LABS: BASO # 0.1 10^3/uL (0.0-0.2); BASO % 1.4 % (0.0-1.0); EOS # 0.1 10^3/uL (0.0-0.5); EOS % 1.4 % (0.0-3.0); HEMATOCRIT 44.6 % (36.0-47.0); HEMOGLOBIN 14.4 g/dl (12.0-15.5); LYMPH # 2.3 10^3/uL (1.5-5.0); LYMPH % 45.7 % (24.0-44.0); MEAN CORPUSCULAR HEMOGLOBIN 33.1 pg (27.0-33.0); MEAN CORPUSCULAR HGB CONC 32.3 g/dl (32.0-36.5); MEAN CORPUSCULAR VOLUME 102.5 fl (80.0-96.0); MONO # 0.5 10^3/uL (0.0-0.8); MONO % 9.5 % (2.0-8.0); NEUTROPHILS # 2.1 10^3/uL (1.5-8.5); NEUTROPHILS % 41.8 % (36.0-66.0); PLATELET COUNT, AUTOMATED 418 10^3/uL (150-450); RED BLOOD COUNT 4.35 10^6/uL (4.00-5.40); WHITE BLOOD COUNT 4.9 10^3/uL (4.0-10.0)
[2023-08-05 16:11] LABS: IRON (FE) 93 UG/DL (50-170); PERCENT SATURATION 54.1 % (13.2-45.0); THYROID STIMULATING HORMONE 0.067 uIU/ML (0.55-4.78); TOTAL IRON BINDING CAPACITY 172 UG/DL (250-425)
[2023-08-05 16:12] LABS: ALBUMIN 3.3 G/DL (3.2-5.2); ALKALINE PHOSPHATASE 132 U/L (46-116); ALT/SGPT 24 U/L (7.0-40); AST/SGOT 29 U/L (<34); BILIRUBIN,TOTAL 0.4 MG/DL (0.3-1.2); BLOOD UREA NITROGEN 7 MG/DL (9-23); CALCIUM LEVEL 9.2 MG/DL (8.5-10.1); CARBON DIOXIDE LEVEL 27 MMOL/L (20-31); CHLORIDE LEVEL 110 MMOL/L (98-107); CHOLESTEROL LEVEL 209 MG/DL (<200); CHOLESTEROL RISK RATIO 1.76 (<5); CREATININE FOR GFR 0.61 MG/DL (0.55-1.30); FERRITIN 281.4 NG/ML (7.3-270.7); GLOMERULAR FILTRATION RATE > 60.0 (>51); GLUCOSE, FASTING 84 MG/DL (60-100); HDL CHOLESTEROL 118.7 MG/DL (>40); LDL CHOLESTEROL 70.7 MG/DL (<100); NON-HDL-C 90.3 MG/DL; POTASSIUM SERUM 4.5 MMOL/L (3.5-5.1); SODIUM LEVEL 142 MMOL/L (136-145); TOTAL 25(OH) VITAMIN D 43.1 NG/ML (20.0-100.0); TOTAL PROTEIN 5.9 G/DL (5.7-8.2); TRIGLYCERIDES LEVEL 98 MG/DL (<150)
[2023-08-05 16:13] LABS: FREE T4 1.39 NG/DL (0.89-1.76)
== END ==
LOC: M PLALAB 12:14
PROVIDERS: ATTEND Family Medicine
DX: E03.9 Hypothyroidism, unspecified (principal); E78.2 Mixed hyperlipidemia; E55.9 Vitamin D deficiency, unspecified; Z98.84 Bariatric surgery status; Z86.39 Personal history of other endocrine, nutritional and metabolic disease

== ENCOUNTER → 2023-08-18 | Outpatient (CLI) | payer OTHER, MEDICAID | LOC: M SOG 11:30 | PROVIDERS: ATTEND Physician Assistant | DX: S52.301D Unspecified fracture of shaft of right radius, subsequent encounter for closed fracture with routine healing (principal) ==

== ENCOUNTER 2023-09-30 12:15 | Emergency (ER) | payer OTHER, MEDICAID ==
[~2023-09-30] VITALS: Ht 157.5 cm; Wt 57.4 kg
[~2023-09-30 12:15] MED LIST changes: +BUPR-597; -BUPR300T92
[2023-09-30 12:35] VITALS: TEMP 97.4
[2023-09-30 12:52] VITALS: BP 109/78; O2SAT 98
== END 2023-09-30 13:17 | disposition left against medical advice (07) ==
LOC: M ED 12:15
DX: Z53.21 Procedure and treatment not carried out due to patient leaving prior to being seen by health care provider (principal)

== ENCOUNTER 2023-09-30 16:51 | Emergency (ER) | payer OTHER, MEDICAID ==
[~2023-09-30] VITALS: Ht 157.5 cm; Wt 59.3 kg
[2023-09-30] MEDS: HALOPERIDOL LACTATE 5MG/ML VIAL IM ONE (17:35)
[2023-09-30] MEDS: diphenhydrAMINE 50MG/ML VIAL IM ONE (17:35)
[2023-09-30] MEDS: LORazepam 2 MG/ML 1ML VIAL IM ONE (17:35)
[2023-09-30 19:26] LABS: HEMATOCRIT 44.4 % (36.0-47.0); HEMOGLOBIN 14.8 g/dl (12.0-15.5); MEAN CORPUSCULAR HEMOGLOBIN 33.2 pg (27.0-33.0); MEAN CORPUSCULAR HGB CONC 33.3 g/dl (32.0-36.5); MEAN CORPUSCULAR VOLUME 99.6 fl (80.0-96.0); PLATELET COUNT, AUTOMATED 365 10^3/uL (150-450); RED BLOOD COUNT 4.46 10^6/uL (4.00-5.40); WHITE BLOOD COUNT 5.5 10^3/uL (4.0-10.0)
[2023-09-30 19:28] LABS: AMPHETAMINES LEVEL URINE NEGATIVE (NEGATIVE); BARBITURATES URINE NEGATIVE (NEGATIVE); BENZODIAZEPINES URINE NEGATIVE (NEGATIVE); COCAINE METABOLITE URINE NEGATIVE (NEGATIVE); METHADONE URINE NEGATIVE (NEGATIVE); OPIATES URINE NEGATIVE (NEGATIVE); PHENCYCLIDINE URINE NEGATIVE (NEGATIVE)
[2023-09-30 19:40] LABS: CANNABINOIDS URINE POSITIVE (NEGATIVE)
[2023-09-30 19:42] LABS: ETHYL ALCOHOL (ETHANOL) 0.139 % (0.000-0.010)
[2023-09-30 19:44] LABS: SALICYLATE LEVEL < 3.0 MG/DL (<30)
[2023-09-30 19:45] LABS: ALBUMIN 3.3 G/DL (3.2-5.2); ALKALINE PHOSPHATASE 204 U/L (46-116); ALT/SGPT 35 U/L (7.0-40); AST/SGOT 45 U/L (<34); BILIRUBIN,DIRECT 0.2 MG/DL (<0.4); BILIRUBIN,TOTAL 0.4 MG/DL (0.3-1.2); BLOOD UREA NITROGEN 9 MG/DL (9-23); CARBON DIOXIDE LEVEL 23 MMOL/L (20-31); CHLORIDE LEVEL 110 MMOL/L (98-107); CREATININE FOR GFR 0.47 MG/DL (0.55-1.30); GLOMERULAR FILTRATION RATE > 60.0 (>51); GLUCOSE, FASTING 98 MG/DL (60-100); POTASSIUM SERUM 3.7 MMOL/L (3.5-5.1); SODIUM LEVEL 145 MMOL/L (136-145); TOTAL PROTEIN 6.2 G/DL (5.7-8.2)
[2023-09-30 19:46] LABS: THYROID STIMULATING HORMONE 2.128 uIU/ML (0.55-4.78)
[2023-09-30] MEDS: PERCOCET 5MG/325MG TAB PO ONE (20:35)
[2023-09-30] MEDS: LORazepam 1 MG TAB PO STA (20:35)
[2023-09-30 20:45] VITALS: BP 135/85; TEMP 98.6; O2SAT 97
== END 2023-09-30 23:04 | disposition home or self-care (01) ==
LOC: M ED 16:51
DX: S00.03XA Contusion of scalp, initial encounter (principal); F43.0 Acute stress reaction; F10.10 Alcohol abuse, uncomplicated; J45.909 Unspecified asthma, uncomplicated; J44.9 Chronic obstructive pulmonary disease, unspecified; Y92.019 Unspecified place in single-family (private) house as the place of occurrence of the external cause; Y93.9 Activity, unspecified; Y99.9 Unspecified external cause status; Y04.2XXA Assault by strike against or bumped into by another person, initial encounter; Z79.51 Long term (current) use of inhaled steroids; Z79.810 Long term (current) use of selective estrogen receptor modulators (SERMs); Z79.899 Other long term (current) drug therapy

== ENCOUNTER 2023-10-03 21:13 | Emergency (ER) | payer OTHER, MEDICAID ==
[~2023-10-03] VITALS: Ht 167.6 cm; Wt 39.5 kg
[2023-10-03] MEDS: FOLIC ACID 1MG TAB PO ONE (20:28)
[2023-10-03 22:04] LABS: HEMATOCRIT 46.1 % (36.0-47.0); HEMOGLOBIN 15.5 g/dl (12.0-15.5); MEAN CORPUSCULAR HEMOGLOBIN 34.1 pg (27.0-33.0); MEAN CORPUSCULAR HGB CONC 33.6 g/dl (32.0-36.5); MEAN CORPUSCULAR VOLUME 101.3 fl (80.0-96.0); PLATELET COUNT, AUTOMATED 303 10^3/uL (150-450); RED BLOOD COUNT 4.55 10^6/uL (4.00-5.40); WHITE BLOOD COUNT 5.9 10^3/uL (4.0-10.0)
[2023-10-03 22:25] LABS: AMPHETAMINES LEVEL URINE NEGATIVE (NEGATIVE); BARBITURATES URINE NEGATIVE (NEGATIVE); BENZODIAZEPINES URINE NEGATIVE (NEGATIVE); COCAINE METABOLITE URINE NEGATIVE (NEGATIVE); METHADONE URINE NEGATIVE (NEGATIVE); OPIATES URINE NEGATIVE (NEGATIVE); PHENCYCLIDINE URINE NEGATIVE (NEGATIVE)
[2023-10-03 22:26] LABS: CANNABINOIDS URINE POSITIVE (NEGATIVE); ETHYL ALCOHOL (ETHANOL) 0.184 % (0.000-0.010)
[2023-10-03 22:27] LABS: ALBUMIN 3.6 G/DL (3.2-5.2); ALKALINE PHOSPHATASE 185 U/L (46-116); ALT/SGPT 32 U/L (7.0-40); AST/SGOT 42 U/L (<34); BILIRUBIN,DIRECT 0.1 MG/DL (<0.4); BILIRUBIN,TOTAL 0.5 MG/DL (0.3-1.2); BLOOD UREA NITROGEN 6 MG/DL (9-23); CALCIUM LEVEL 9.4 MG/DL (8.5-10.1); CARBON DIOXIDE LEVEL 32 MMOL/L (20-31); CHLORIDE LEVEL 107 MMOL/L (98-107); CREATININE FOR GFR 0.52 MG/DL (0.55-1.30); GLOMERULAR FILTRATION RATE > 60.0 (>51); GLUCOSE, FASTING 82 MG/DL (60-100); POTASSIUM SERUM 4.4 MMOL/L (3.5-5.1); SALICYLATE LEVEL < 3.0 MG/DL (<30); SODIUM LEVEL 143 MMOL/L (136-145); TOTAL PROTEIN 6.6 G/DL (5.7-8.2)
[2023-10-03] MEDS: THIAMINE 100 MG TAB PO ONE (22:28)
[2023-10-03] MEDS: MULTIVITAMINS/MINERALS THERAP 1 TAB PO ONE (22:29)
[2023-10-03 22:31] VITALS: BP 99/50; TEMP 98.3
[2023-10-03 22:31] LABS: FREE T4 1.07 NG/DL (0.89-1.76); THYROID STIMULATING HORMONE 5.067 uIU/ML (0.55-4.78)
[2023-10-04] MEDS ORDERED: ALBU8.5H (01:01)
[2023-10-04] MEDS ORDERED: THIA100T30 (01:01)
[2023-10-04] MEDS ORDERED: GABA-284 (01:01)
[2023-10-04] MEDS ORDERED: OXYC1TAB23 (01:01)
[2023-10-04] MEDS ORDERED: LEVO50TA5 (01:01)
[2023-10-04] MEDS ORDERED: ROPI2TAB46 (01:01)
[2023-10-04] MEDS: PERCOCET 5MG/325MG TAB PO ONE (01:43)
[2023-10-04 02:54] VITALS: O2SAT 95
== END 2023-10-04 03:19 | disposition home or self-care (01) ==
LOC: M ED 21:13
DX: F10.120 Alcohol abuse with intoxication, uncomplicated (principal); F32.A Depression, unspecified; Z79.51 Long term (current) use of inhaled steroids; Z79.810 Long term (current) use of selective estrogen receptor modulators (SERMs); Z79.899 Other long term (current) drug therapy

== ENCOUNTER 2023-10-09 11:41 | Inpatient (IN) | payer OTHER, MEDICAID ==
[~2023-10-09] VITALS: Ht 157.5 cm; Wt 52.3 kg
[2023-10-09] MEDS: MULTIVITAMINS/MINERALS THERAP 1 TAB PO SCH (09:00)
[2023-10-09] MEDS: FOLIC ACID 1MG TAB PO SCH (09:00)
[~2023-10-09 11:41] MED LIST changes: +ALBU8.5H; +GABA-284 PO; +LEVO50TA5 PO; +OXYC1TAB23 PO; +ROPI2TAB46; +THIA100T30
[2023-10-09] MEDS: diphenhydrAMINE 50MG/ML VIAL IM ONE (12:18)
[2023-10-09] MEDS: HALOPERIDOL LACTATE 5MG/ML VIAL IM ONE (12:18)
[2023-10-09] MEDS: LORazepam 2 MG/ML 1ML VIAL IM ONE (12:18)
[2023-10-09] MEDS: LORazepam 2 MG/ML 1ML VIAL IM STA (12:45)
[2023-10-09 13:24] LABS: BASO # 0.1 10^3/uL (0.0-0.2); BASO % 1.2 % (0.0-1.0); EOS % 0.5 % (0.0-3.0); HEMATOCRIT 42.8 % (36.0-47.0); HEMOGLOBIN 14.3 g/dl (12.0-15.5); LYMPH # 1.7 10^3/uL (1.5-5.0); LYMPH % 42.4 % (24.0-44.0); MEAN CORPUSCULAR HEMOGLOBIN 33.8 pg (27.0-33.0); MEAN CORPUSCULAR HGB CONC 33.4 g/dl (32.0-36.5); MEAN CORPUSCULAR VOLUME 101.2 fl (80.0-96.0); MONO # 0.3 10^3/uL (0.0-0.8); MONO % 6.2 % (2.0-8.0); NEUTROPHILS % 49.7 % (36.0-66.0); PLATELET COUNT, AUTOMATED 261 10^3/uL (150-450); RED BLOOD COUNT 4.23 10^6/uL (4.00-5.40)
[2023-10-09 13:52] LABS: METHADONE URINE NEGATIVE (NEGATIVE)
[2023-10-09 13:53] LABS: AMPHETAMINES LEVEL URINE NEGATIVE (NEGATIVE); BARBITURATES URINE NEGATIVE (NEGATIVE); BENZODIAZEPINES URINE NEGATIVE (NEGATIVE); COCAINE METABOLITE URINE NEGATIVE (NEGATIVE); OPIATES URINE NEGATIVE (NEGATIVE); PHENCYCLIDINE URINE NEGATIVE (NEGATIVE)
[2023-10-09 13:55] LABS: ETHYL ALCOHOL (ETHANOL) 0.187 % (0.000-0.010)
[2023-10-09 13:56] LABS: SALICYLATE LEVEL < 3.0 MG/DL (<30)
[2023-10-09 13:57] LABS: ALBUMIN 3.2 G/DL (3.2-5.2); ALKALINE PHOSPHATASE 169 U/L (46-116); ALT/SGPT 38 U/L (7.0-40); AST/SGOT 77 U/L (<34); BILIRUBIN,DIRECT 0.1 MG/DL (<0.4); BILIRUBIN,TOTAL 0.4 MG/DL (0.3-1.2); BLOOD UREA NITROGEN 7 MG/DL (9-23); CALCIUM LEVEL 8.7 MG/DL (8.5-10.1); CARBON DIOXIDE LEVEL 28 MMOL/L (20-31); CHLORIDE LEVEL 109 MMOL/L (98-107); CREATININE FOR GFR 0.49 MG/DL (0.55-1.30); GLOMERULAR FILTRATION RATE > 60.0 (>51); GLUCOSE, FASTING 74 MG/DL (60-100); POTASSIUM SERUM 4.7 MMOL/L (3.5-5.1); SODIUM LEVEL 143 MMOL/L (136-145)
[2023-10-09 13:58] LABS: THYROID STIMULATING HORMONE 0.662 uIU/ML (0.55-4.78)
[2023-10-09 14:03] LABS: CANNABINOIDS URINE POSITIVE (NEGATIVE); CPK CREATINE PHOSPHOKINASE 106 U/L (34-145)
[2023-10-09] MEDS: NS 500 ML IV ONE ×2 (15:27→16:36)
[2023-10-09] MEDS ORDERED: LORazepam 2 MG TAB PO PRN (16:30)
[2023-10-09] MEDS: NS 1,000 ML IV SCH (17:00)
[2023-10-09] MEDS: THIAMINE 100 MG TAB PO SCH (17:00)
[2023-10-09] MEDS ORDERED: DEXTROSE 50% 50ML SYRINGE As Ordered ONE (17:58)
[2023-10-09] MEDS: DEXTROSE 50% 50ML SYRINGE IV STA (17:59)
[2023-10-09] MEDS ORDERED: ALBU2.5V10 INH (18:32)
[2023-10-09] MEDS ORDERED: B-12100021 PO (18:32)
[2023-10-09] MEDS ORDERED: RA M10TA PO (18:32)
[2023-10-09] MEDS ORDERED: HOME MED LIST COMPLETE! XX SCH (18:35)
[2023-10-09] MEDS ORDERED: ALBUTEROL 90 MCG/ACT 8GM HFA INHALER INH PRN (18:45)
[2023-10-09] MEDS: ADVAIR HFA 230/21MCG INHALER INH SCH (19:45)
[2023-10-09] MEDS: busPIRone 5 MG TAB PO SCH (21:59)
[2023-10-09] MEDS: GABAPENTIN 400MG CAP PO SCH (22:00)
[2023-10-09] MEDS: rOPINIRole 1MG TAB PO SCH (22:00)
[2023-10-10 06:45] LABS: HEMATOCRIT 41.5 % (36.0-47.0); HEMOGLOBIN 13.8 g/dl (12.0-15.5); MEAN CORPUSCULAR HEMOGLOBIN 33.7 pg (27.0-33.0); MEAN CORPUSCULAR HGB CONC 33.3 g/dl (32.0-36.5); MEAN CORPUSCULAR VOLUME 101.2 fl (80.0-96.0); PLATELET COUNT, AUTOMATED 252 10^3/uL (150-450); WHITE BLOOD COUNT 5.2 10^3/uL (4.0-10.0)
[2023-10-10 07:00] LABS: ALBUMIN 2.9 G/DL (3.2-5.2); ALKALINE PHOSPHATASE 158 U/L (46-116); ALT/SGPT 32 U/L (7.0-40); AST/SGOT 65 U/L (<34); BILIRUBIN,TOTAL 0.9 MG/DL (0.3-1.2); BLOOD UREA NITROGEN 8 MG/DL (9-23); CALCIUM LEVEL 8.4 MG/DL (8.5-10.1); CARBON DIOXIDE LEVEL 26 MMOL/L (20-31); CHLORIDE LEVEL 114 MMOL/L (98-107); CREATININE FOR GFR 0.55 MG/DL (0.55-1.30); GLOMERULAR FILTRATION RATE > 60.0 (>51); GLUCOSE, FASTING 75 MG/DL (60-100); POTASSIUM SERUM 3.9 MMOL/L (3.5-5.1); SODIUM LEVEL 147 MMOL/L (136-145); TOTAL PROTEIN 5.4 G/DL (5.7-8.2)
[2023-10-10] MEDS: ENOXAPARIN 40MG/0.4ML SYRINGE (J1650 PER 10MG) SC SCH (09:00)
[2023-10-10] MEDS: VITAMIN D 1,000 INTERNATIONAL UNITS TABLET PO SCH (09:00)
[2023-10-10] MEDS: CETIRIZINE (ZyrTEC) 10 MG TAB PO SCH (09:00)
[2023-10-10] MEDS: PARoxetine 20MG TABLET PO SCH (09:00)
[2023-10-10] MEDS: CYANOCOBALAMIN 500 MCG TAB PO SCH (09:00)
[2023-10-10] MEDS: TOPIRAMATE (TopAMAX) 25 MG TAB PO SCH (09:00)
[2023-10-10] MEDS: PANTOPRAZOLE 40MG TAB (PROTONIX) PO SCH (09:00)
[2023-10-10] MEDS: NICOTINE 21MG/24HR 1 EA TRANSDERMAL TD SCH (09:00)
[2023-10-10] MEDS: LEVOTHYROXINE 50MCG TABLET (0.05MG) PO SCH (11:21)
[2023-10-10] MEDS ORDERED: MOM 30ML SUSPENSION UDC PO PRN (13:35)
[2023-10-10] MEDS ORDERED: LORazepam 2 MG TAB PO PRN (13:35)
[2023-10-10] MEDS ORDERED: diphenhydrAMINE 25MG CAP PO PRN (13:35)
[2023-10-10] MEDS ORDERED: OLANZapine ORAL DISINTEGRATING TAB 5MG PO PRN (13:35)
[2023-10-10] MEDS ORDERED: IBUPROFEN 400MG TAB PO PRN (13:35)
[2023-10-10] MEDS ORDERED: MAALOX 30 ML SUSP *UDC PO PRN (13:35)
[2023-10-10] MEDS ORDERED: ALBUTEROL SULFATE 2.5MG/0.5ML INH NEB SOLN INH PRN (13:35)
[2023-10-10 14:46] LABS: INR 0.98; PARTIAL THROMBOPLASTIN TIME 26.6 SECONDS (24.8-34.2); PROTHROMBIN TIME 12.7 SECONDS (12.5-14.5)
[2023-10-10] MEDS ORDERED: ALBUTEROL 90 MCG/ACT 8GM HFA INHALER INH PRN (19:05)
[2023-10-10] MEDS: ADVAIR HFA 45/21MCG INHALER INH SCH (20:00)
[2023-10-10] MEDS: busPIRone 5 MG TAB PO SCH (20:08)
[2023-10-10] MEDS: GABAPENTIN 400MG CAP PO SCH (20:08)
[2023-10-10] MEDS: THIAMINE 100 MG TAB PO SCH (20:09)
[2023-10-10] MEDS: traZODone 50 MG TAB PO PRN (20:10)
[2023-10-10] MEDS ORDERED: THIAMINE 100 MG TAB PO SCH (21:00)
[2023-10-10] MEDS: rOPINIRole 1MG TAB PO SCH (21:18)
[2023-10-11] MEDS: LEVOTHYROXINE 50MCG TABLET (0.05MG) PO SCH (05:15)
[2023-10-11 06:26] VITALS: BP 101/70; TEMP 98.8; O2SAT 98
[2023-10-11 07:26] LABS: HEMATOCRIT 45.5 % (36.0-47.0); HEMOGLOBIN 15.2 g/dl (12.0-15.5); MEAN CORPUSCULAR HEMOGLOBIN 33.9 pg (27.0-33.0); MEAN CORPUSCULAR HGB CONC 33.4 g/dl (32.0-36.5); MEAN CORPUSCULAR VOLUME 101.6 fl (80.0-96.0); PLATELET COUNT, AUTOMATED 265 10^3/uL (150-450); RED BLOOD COUNT 4.48 10^6/uL (4.00-5.40); WHITE BLOOD COUNT 5.6 10^3/uL (4.0-10.0)
[2023-10-11 08:02] LABS: ALBUMIN 3.3 G/DL (3.2-5.2); ALKALINE PHOSPHATASE 167 U/L (46-116); ALT/SGPT 33 U/L (7.0-40); AST/SGOT 56 U/L (<34); BILIRUBIN,TOTAL 1.3 MG/DL (0.3-1.2); BLOOD UREA NITROGEN 7 MG/DL (9-23); CALCIUM LEVEL 8.8 MG/DL (8.5-10.1); CARBON DIOXIDE LEVEL 29 MMOL/L (20-31); CHLORIDE LEVEL 108 MMOL/L (98-107); CREATININE FOR GFR 0.51 MG/DL (0.55-1.30); GLOMERULAR FILTRATION RATE > 60.0 (>51); GLUCOSE, FASTING 111 MG/DL (60-100); POTASSIUM SERUM 3.6 MMOL/L (3.5-5.1); SODIUM LEVEL 143 MMOL/L (136-145); TOTAL PROTEIN 6.1 G/DL (5.7-8.2)
[2023-10-11] MEDS: CETIRIZINE (ZyrTEC) 10 MG TAB PO SCH (08:10)
[2023-10-11] MEDS: PANTOPRAZOLE 40MG TAB (PROTONIX) PO SCH (08:10)
[2023-10-11] MEDS: MULTIVITAMINS/MINERALS THERAP 1 TAB PO SCH (08:11)
[2023-10-11] MEDS: PARoxetine 20MG TABLET PO SCH (08:11)
[2023-10-11] MEDS: FOLIC ACID 1MG TAB PO SCH (08:11)
[2023-10-11] MEDS: TOPIRAMATE (TopAMAX) 25 MG TAB PO SCH (08:11)
[2023-10-11] MEDS: CYANOCOBALAMIN 500 MCG TAB PO SCH (08:12)
[2023-10-11] MEDS ORDERED: CYANOCOBALAMIN 500 MCG TAB PO SCH (09:00)
[2023-10-11] MEDS: ACETAMINOPHEN TAB 650MG DOSE (2X325MG) PO PRN (09:50)
[2023-10-11 18:20] VITALS: BP 118/77; TEMP 98.5
[2023-10-11] MEDS: PERCOCET 5MG/325MG TAB PO PRN (19:32)
[2023-10-12 06:01] VITALS: BP 97/62; TEMP 99; O2SAT 100
[2023-10-12] MEDS ORDERED: TRAZ-252 PO (10:51)
[2023-10-14] MEDS ORDERED: THIAMINE 100 MG TAB PO SCH (09:00)
== END 2023-10-12 11:30 | disposition home or self-care (01) | DRG 880 ==
LOC: M ED 11:41 → EDBEDREQSVC 10-10 13:06 → M ED INP 10-10 13:33 → M PSY 10-10 16:58
PROVIDERS: ADMIT Student in an Organized Health Care Education/Training Program; ATTEND Student in an Organized Health Care Education/Training Program
DX: F41.9 Anxiety disorder, unspecified (principal); R45.851 Suicidal ideations; F10.220 Alcohol dependence with intoxication, uncomplicated; F43.20 Adjustment disorder, unspecified; F60.89 Other specific personality disorders; D50.9 Iron deficiency anemia, unspecified; J45.909 Unspecified asthma, uncomplicated; E03.9 Hypothyroidism, unspecified; F32.A Depression, unspecified; K21.9 Gastro-esophageal reflux disease without esophagitis; G25.81 Restless legs syndrome; Z96.651 Presence of right artificial knee joint; R74.01 Elevation of levels of liver transaminase levels; G89.29 Other chronic pain; Z78.1 Physical restraint status; Z98.84 Bariatric surgery status; Z79.890 Hormone replacement therapy; Z79.899 Other long term (current) drug therapy; Z11.52 Encounter for screening for COVID-19; Z63.0 Problems in relationship with spouse or partner; Z65.8 Other specified problems related to psychosocial circumstances

== ENCOUNTER → 2023-10-24 | Outpatient (CLI) | payer OTHER, MEDICAID ==
[~2023-10-24] MED LIST changes: +ALBU2.5V10 INH; +B-12100021 PO; +RA M10TA PO; +TRAZ-252 PO
== END ==
LOC: M SOG 07:57
PROVIDERS: ATTEND Orthopaedic Surgery
DX: Z53.9 Procedure and treatment not carried out, unspecified reason (principal)

== ENCOUNTER → 2023-11-02 | Outpatient (CLI) | payer OTHER, MEDICAID | LOC: M SOG 08:00 | PROVIDERS: ATTEND Orthopaedic Surgery | DX: M17.0 Bilateral primary osteoarthritis of knee (principal); M25.562 Pain in left knee; Z79.899 Other long term (current) drug therapy; Z96.651 Presence of right artificial knee joint ==

== ENCOUNTER → 2023-11-02 | Outpatient (CLI) | payer OTHER, MEDICAID ==
[2023-11-02 17:24] LABS: BASO # 0.1 10^3/uL (0.0-0.2); BASO % 1.3 % (0.0-1.0); EOS # 0.1 10^3/uL (0.0-0.5); EOS % 2.4 % (0.0-3.0); HEMATOCRIT 45.3 % (36.0-47.0); HEMOGLOBIN 14.5 g/dl (12.0-15.5); LYMPH # 1.9 10^3/uL (1.5-5.0); MEAN CORPUSCULAR VOLUME 103.2 fl (80.0-96.0); MONO # 0.3 10^3/uL (0.0-0.8); MONO % 6.6 % (2.0-8.0); NEUTROPHILS # 1.5 10^3/uL (1.5-8.5); NEUTROPHILS % 39.7 % (36.0-66.0); PLATELET COUNT, AUTOMATED 293 10^3/uL (150-450); RED BLOOD COUNT 4.39 10^6/uL (4.00-5.40); WHITE BLOOD COUNT 3.8 10^3/uL (4.0-10.0)
[2023-11-02 17:30] LABS: INR 0.98; PROTHROMBIN TIME 12.7 SECONDS (12.5-14.5)
[2023-11-02 17:41] LABS: ERYTHROCYTE SEDIMENTATION RATE 22 mm/hr (0-30)
[2023-11-02 17:49] LABS: C REACTIVE PROTEIN QUANTITATIV < 0.40 MG/DL (<1.0)
[2023-11-02 17:50] LABS: ALBUMIN 3.1 G/DL (3.2-5.2); ALKALINE PHOSPHATASE 92 U/L (46-116); ALT/SGPT 23 U/L (7.0-40); AST/SGOT 19 U/L (<34); BILIRUBIN,TOTAL 0.3 MG/DL (0.3-1.2); BLOOD UREA NITROGEN 5 MG/DL (9-23); CALCIUM LEVEL 9.3 MG/DL (8.5-10.1); CARBON DIOXIDE LEVEL 28 MMOL/L (20-31); CHLORIDE LEVEL 110 MMOL/L (98-107); CREATININE FOR GFR 0.67 MG/DL (0.55-1.30); GLOMERULAR FILTRATION RATE > 60.0 (>51); GLUCOSE, FASTING 90 MG/DL (60-100); POTASSIUM SERUM 4.4 MMOL/L (3.5-5.1); SODIUM LEVEL 142 MMOL/L (136-145); TOTAL PROTEIN 5.8 G/DL (5.7-8.2)
[2023-11-02 20:14] LABS: HEMOGLOBIN A1c 4.7 % (4.0-6.0)
== END ==
LOC: M PLALAB 15:54
PROVIDERS: ATTEND Orthopaedic Surgery
DX: M25.562 Pain in left knee (principal); Z79.899 Other long term (current) drug therapy

== ENCOUNTER → 2023-11-17 | Outpatient (CLI) | payer OTHER, MEDICAID | LOC: M PLALAB 09:05 | PROVIDERS: ATTEND Family Medicine | DX: E03.9 Hypothyroidism, unspecified (principal); M25.531 Pain in right wrist ==

== ENCOUNTER 2023-12-07 22:36 | Emergency (ER) | payer OTHER, MEDICAID ==
[2023-12-07 22:49] VITALS: BP 108/69; TEMP 97.8; O2SAT 94
[2023-12-08] MEDS ORDERED: BUSP15TA47 PO (21:23)
[2023-12-08] MEDS ORDERED: NALT50TA4 PO (21:23)
[2023-12-08] MEDS ORDERED: TRAZ-186 PO (21:23)
[2023-12-08] MEDS ORDERED: SYNT25TA PO (21:23)
[2023-12-08] MEDS ORDERED: ROPI2TAB46 PO (21:23)
[2023-12-08] MEDS ORDERED: DISU1TAB7 PO (21:24)
[2023-12-08] MEDS ORDERED: RA T500C2 PO (21:24)
== END 2023-12-07 23:15 | disposition left against medical advice (07) ==
LOC: M ED 22:36
DX: Z04.71 Encounter for examination and observation following alleged adult physical abuse (principal); F10.10 Alcohol abuse, uncomplicated; Z88.8 Allergy status to other drugs, medicaments and biological substances; Z79.51 Long term (current) use of inhaled steroids; Z79.899 Other long term (current) drug therapy; Z53.9 Procedure and treatment not carried out, unspecified reason

== ENCOUNTER 2023-12-08 01:17 | Inpatient (IN) | payer OTHER, MEDICAID ==
[~2023-12-08] VITALS: Ht 157.5 cm; Wt 52.9 kg
[2023-12-08] MEDS: HALOPERIDOL LACTATE 5MG/ML VIAL IM ONE (01:45)
[2023-12-08] MEDS: LORazepam 2 MG/ML 1ML VIAL IM ONE (01:46)
[2023-12-08] MEDS: diphenhydrAMINE 50MG/ML VIAL IM ONE (01:46)
[2023-12-08 03:14] LABS: HEMATOCRIT 42.3 % (36.0-47.0); MEAN CORPUSCULAR HEMOGLOBIN 32.1 pg (27.0-33.0); MEAN CORPUSCULAR HGB CONC 33.1 g/dl (32.0-36.5); PLATELET COUNT, AUTOMATED 319 10^3/uL (150-450); RED BLOOD COUNT 4.36 10^6/uL (4.00-5.40); WHITE BLOOD COUNT 9.4 10^3/uL (4.0-10.0)
[2023-12-08 03:46] LABS: ETHYL ALCOHOL (ETHANOL) 0.017 % (0.000-0.010)
[2023-12-08 03:48] LABS: ALBUMIN 3.4 G/DL (3.2-5.2); ALKALINE PHOSPHATASE 60 U/L (46-116); ALT/SGPT 39 U/L (7.0-40); AST/SGOT 48 U/L (<34); BILIRUBIN,DIRECT < 0.1 MG/DL (<0.4); BILIRUBIN,TOTAL 0.3 MG/DL (0.3-1.2); BLOOD UREA NITROGEN 6 MG/DL (9-23); CALCIUM LEVEL 8.9 MG/DL (8.5-10.1); CARBON DIOXIDE LEVEL 32 MMOL/L (20-31); CHLORIDE LEVEL 113 MMOL/L (98-107); CREATININE FOR GFR 0.67 MG/DL (0.55-1.30); GLOMERULAR FILTRATION RATE > 60.0 (>51); GLUCOSE, FASTING 85 MG/DL (60-100); POTASSIUM SERUM 4.6 MMOL/L (3.5-5.1); SALICYLATE LEVEL < 3.0 MG/DL (<30); SODIUM LEVEL 146 MMOL/L (136-145); TOTAL PROTEIN 6.3 G/DL (5.7-8.2)
[2023-12-08 03:49] LABS: HCG, SERUM QUALITATIVE NEGATIVE (NEGATIVE)
[2023-12-08 03:50] LABS: THYROID STIMULATING HORMONE 4.653 uIU/ML (0.55-4.78)
[2023-12-08] MEDS ORDERED: MED REC CURRENTLY UNOBTAINABLE XX SCH (14:25)
[2023-12-08 15:30] LABS: AMPHETAMINES LEVEL URINE NEGATIVE (NEGATIVE); BARBITURATES URINE NEGATIVE (NEGATIVE); BENZODIAZEPINES URINE NEGATIVE (NEGATIVE); COCAINE METABOLITE URINE NEGATIVE (NEGATIVE); METHADONE URINE NEGATIVE (NEGATIVE); OPIATES URINE NEGATIVE (NEGATIVE); PHENCYCLIDINE URINE NEGATIVE (NEGATIVE)
[2023-12-08 15:33] LABS: CANNABINOIDS URINE POSITIVE (NEGATIVE)
[2023-12-08] MEDS: ALBUTEROL 90 MCG/ACT 8GM HFA INHALER INH PRN (16:17)
[2023-12-08] MEDS ORDERED: diphenhydrAMINE 25MG CAP PO PRN (17:20)
[2023-12-08] MEDS ORDERED: IBUPROFEN 400MG TAB PO PRN (17:20)
[2023-12-08] MEDS ORDERED: MOM 30ML SUSPENSION UDC PO PRN (17:20)
[2023-12-08 18:58] VITALS: BP 126/91; TEMP 97.4; O2SAT 97
[2023-12-08] MEDS ORDERED: NALT50TA4 PO (21:23)
[2023-12-08] MEDS ORDERED: BUSP15TA47 PO (21:23)
[2023-12-08] MEDS ORDERED: SYNT25TA PO (21:23)
[2023-12-08] MEDS ORDERED: ROPI2TAB46 PO (21:23)
[2023-12-08] MEDS ORDERED: TRAZ-186 PO (21:23)
[2023-12-08] MEDS ORDERED: DISU1TAB7 PO (21:24)
[2023-12-08] MEDS ORDERED: RA T500C2 PO (21:24)
[2023-12-08] MEDS ORDERED: HOME MED LIST COMPLETE! XX SCH (21:25)
[2023-12-08] MEDS ORDERED: ALBUTEROL SULFATE 2.5MG/0.5ML INH NEB SOLN INH PRN (23:20)
[2023-12-08] MEDS ORDERED: ALBUTEROL 90 MCG/ACT 8GM HFA INHALER INH PRN (23:20)
[2023-12-09] MEDS: LEVOTHYROXINE 25MCG TABLET (0.025MG) PO SCH (05:14)
[2023-12-09 06:22] VITALS: BP 121/65; TEMP 98.6; O2SAT 95
[2023-12-09] MEDS: ADVAIR HFA 230/21MCG INHALER INH SCH (07:44)
[2023-12-09] MEDS: THIAMINE 100 MG TAB PO SCH (08:07)
[2023-12-09] MEDS: CETIRIZINE (ZyrTEC) 10 MG TAB PO SCH (09:00)
[2023-12-09] MEDS: TOPIRAMATE (TopAMAX) 25 MG TAB PO SCH (10:41)
[2023-12-09] MEDS: PERCOCET 5MG/325MG TAB PO PRN (10:42)
[2023-12-09] MEDS: VITAMIN D 1,000 INTERNATIONAL UNITS TABLET PO SCH (10:42)
[2023-12-09] MEDS: PANTOPRAZOLE 40MG TAB (PROTONIX) PO SCH (10:42)
[2023-12-09] MEDS: NALTREXONE 50 MG TAB PO SCH (10:42)
[2023-12-09] MEDS: busPIRone 5 MG TAB PO SCH (10:43)
[2023-12-09] MEDS: PARoxetine 20MG TABLET PO SCH (10:43)
[2023-12-09] MEDS: ACAMPROSATE CALCIUM 333MG TABLET (CAMPRAL) PO SCH (11:12)
[2023-12-09 16:41] VITALS: BP 103/64; TEMP 97.7; O2SAT 100
[2023-12-09] MEDS: traZODone 50 MG TAB PO PRN (20:36)
[2023-12-09] MEDS: rOPINIRole 2MG TAB PO SCH (20:36)
[2023-12-10 06:08] VITALS: BP 115/68; TEMP 98.6; O2SAT 94
[2023-12-10 12:23] VITALS: BP 115/68; TEMP 98.6; O2SAT 94
[2023-12-10 15:55] VITALS: BP 109/60; TEMP 97.9; O2SAT 100
[2023-12-10] MEDS: MAALOX 30 ML SUSP *UDC PO PRN (20:51)
[2023-12-11 06:16] VITALS: BP 111/55; TEMP 98.7; O2SAT 98
[2023-12-11 08:17] LABS: BLOOD UREA NITROGEN 11 MG/DL (9-23); CALCIUM LEVEL 9.2 MG/DL (8.5-10.1); CARBON DIOXIDE LEVEL 30 MMOL/L (20-31); CHLORIDE LEVEL 111 MMOL/L (98-107); GLOMERULAR FILTRATION RATE > 60.0 (>51); GLUCOSE, FASTING 117 MG/DL (60-100); SODIUM LEVEL 144 MMOL/L (136-145)
[2023-12-11] MEDS: ACETAMINOPHEN TAB 650MG DOSE (2X325MG) PO PRN (10:47)
[2023-12-11 16:51] VITALS: BP 119/62; TEMP 98.4; O2SAT 98
[2023-12-12 06:18] VITALS: BP 106/59; TEMP 98.1; O2SAT 98
== END 2023-12-12 11:38 | disposition home or self-care (01) | DRG 881 ==
LOC: M ED 01:17 → M ED INP 17:20 → M PSY 18:01
PROVIDERS: ADMIT Psychiatry & Neurology Psychiatry; ATTEND Psychiatry & Neurology Child & Adolescent Psychiatry
DX: F32.A Depression, unspecified (principal); R45.851 Suicidal ideations; E87.0 Hyperosmolality and hypernatremia; F41.9 Anxiety disorder, unspecified; F10.229 Alcohol dependence with intoxication, unspecified; F43.20 Adjustment disorder, unspecified; L65.9 Nonscarring hair loss, unspecified; D50.9 Iron deficiency anemia, unspecified; J45.909 Unspecified asthma, uncomplicated; E03.9 Hypothyroidism, unspecified; G89.29 Other chronic pain; K21.9 Gastro-esophageal reflux disease without esophagitis; M62.81 Muscle weakness (generalized); G25.81 Restless legs syndrome; E53.8 Deficiency of other specified B group vitamins; E55.9 Vitamin D deficiency, unspecified; Z91.414 Personal history of adult intimate partner abuse; Z79.890 Hormone replacement therapy; Z79.899 Other long term (current) drug therapy; Z88.6 Allergy status to analgesic agent; Z98.84 Bariatric surgery status; Z96.651 Presence of right artificial knee joint

== ENCOUNTER 2023-12-13 20:46 | Emergency (ER) | payer OTHER, MEDICAID ==
[~2023-12-13] VITALS: Ht 157.5 cm; Wt 50.0 kg
[~2023-12-13 20:46] MED LIST changes: +BUSP15TA47 PO; +DISU1TAB7 PO; +NALT50TA4 PO; +RA T500C2 PO; +ROPI2TAB46 PO; +SYNT25TA PO; +TRAZ-186 PO
[2023-12-13 21:19] VITALS: BP 112/75; TEMP 98.3
[2023-12-13 22:01] VITALS: O2SAT 97
[2023-12-13] MEDS: PERCOCET 5MG/325MG TAB PO ONE (22:01)
== END 2023-12-13 22:54 | disposition left against medical advice (07) ==
LOC: EDBD 20:46 → M ED 20:46
DX: S00.93XA Contusion of unspecified part of head, initial encounter (principal); Y92.9 Unspecified place or not applicable; Y93.9 Activity, unspecified; Y99.9 Unspecified external cause status; J45.909 Unspecified asthma, uncomplicated; J44.9 Chronic obstructive pulmonary disease, unspecified; E03.9 Hypothyroidism, unspecified; F41.9 Anxiety disorder, unspecified; F32.A Depression, unspecified; Z88.8 Allergy status to other drugs, medicaments and biological substances; Z79.899 Other long term (current) drug therapy; Z53.9 Procedure and treatment not carried out, unspecified reason

== ENCOUNTER → 2024-01-18 | Outpatient (CLI) | payer OTHER, MEDICAID ==
[2024-01-18 14:14] LABS: BASO # 0.1 10^3/uL (0.0-0.2); BASO % 0.9 % (0.0-1.0); EOS # 0.1 10^3/uL (0.0-0.5); EOS % 0.8 % (0.0-3.0); HEMATOCRIT 43.3 % (36.0-47.0); HEMOGLOBIN 14.1 g/dl (12.0-15.5); LYMPH # 3.4 10^3/uL (1.5-5.0); LYMPH % 53.3 % (24.0-44.0); MEAN CORPUSCULAR HEMOGLOBIN 32.3 pg (27.0-33.0); MEAN CORPUSCULAR HGB CONC 32.6 g/dl (32.0-36.5); MEAN CORPUSCULAR VOLUME 99.3 fl (80.0-96.0); MONO # 0.3 10^3/uL (0.0-0.8); MONO % 5.1 % (2.0-8.0); NEUTROPHILS # 2.5 10^3/uL (1.5-8.5); NEUTROPHILS % 39.7 % (36.0-66.0); PLATELET COUNT, AUTOMATED 336 10^3/uL (150-450); RED BLOOD COUNT 4.36 10^6/uL (4.00-5.40); WHITE BLOOD COUNT 6.3 10^3/uL (4.0-10.0)
[2024-01-18 14:18] LABS: FERRITIN 109.2 NG/ML (7.3-270.7)
[2024-01-18 14:21] LABS: ALBUMIN 3.4 G/DL (3.2-5.2); ALKALINE PHOSPHATASE 61 U/L (46-116); ALT/SGPT 21 U/L (7.0-40); AST/SGOT 21 U/L (<34); BILIRUBIN,TOTAL 0.3 MG/DL (0.3-1.2); BLOOD UREA NITROGEN 10 MG/DL (9-23); CALCIUM LEVEL 9.7 MG/DL (8.5-10.1); CARBON DIOXIDE LEVEL 30 MMOL/L (20-31); CHLORIDE LEVEL 110 MMOL/L (98-107); GLOMERULAR FILTRATION RATE > 60.0 (>51); GLUCOSE, FASTING 108 MG/DL (60-100); SODIUM LEVEL 143 MMOL/L (136-145); TOTAL PROTEIN 5.9 G/DL (5.7-8.2)
== END ==
LOC: M PLALAB 09:43
PROVIDERS: ATTEND Family Medicine
DX: R61 Generalized hyperhidrosis (principal)

== ENCOUNTER → 2024-06-13 | Outpatient (CLI) | payer MEDICARE, MEDICAID ==
[~2024-06-13] MED LIST changes: -ADV250INH INH; +ADVA1AER9 INH
[2024-06-13 18:35] LABS: HEMATOCRIT 41.7 % (36.0-47.0); HEMOGLOBIN 13.9 g/dl (12.0-15.5); MEAN CORPUSCULAR HEMOGLOBIN 31.9 pg (27.0-33.0); MEAN CORPUSCULAR HGB CONC 33.3 g/dl (32.0-36.5); MEAN CORPUSCULAR VOLUME 95.6 fl (80.0-96.0); PLATELET COUNT, AUTOMATED 290 10^3/uL (150-450); RED BLOOD COUNT 4.36 10^6/uL (4.00-5.40); WHITE BLOOD COUNT 5.9 10^3/uL (4.0-10.0)
[2024-06-13 19:03] LABS: ALBUMIN 3.7 G/DL (3.2-5.2); ALKALINE PHOSPHATASE 82 U/L (35-104); ALT/SGPT 37 U/L (7.0-40); AST/SGOT 40 U/L (<34); BILIRUBIN,TOTAL 0.9 MG/DL (0.3-1.2); BLOOD UREA NITROGEN 11 MG/DL (9-23); CARBON DIOXIDE LEVEL 31 MMOL/L (20-31); CHLORIDE LEVEL 102 MMOL/L (98-107); CREATININE FOR GFR 0.67 MG/DL (0.55-1.30); GLOMERULAR FILTRATION RATE > 60.0 (>51); GLUCOSE, FASTING 62 MG/DL (60-100); IRON (FE) 163 UG/DL (50-170); PERCENT SATURATION 71.8 % (13.2-45.0); POTASSIUM SERUM 4.6 MMOL/L (3.5-5.1); SODIUM LEVEL 139 MMOL/L (136-145); TOTAL IRON BINDING CAPACITY 227 UG/DL (250-425); TOTAL PROTEIN 6.6 G/DL (5.7-8.2)
[2024-06-13 19:04] LABS: VITAMIN B12 LEVEL 1836 PG/ML (211-911)
[2024-06-13 19:05] LABS: FERRITIN 137.1 NG/ML (7.3-270.7); THYROID STIMULATING HORMONE 3.098 uIU/ML (0.55-4.78); TOTAL 25(OH) VITAMIN D 43.9 NG/ML (20.0-100.0)
== END ==
LOC: M PLALAB 15:51
PROVIDERS: ATTEND Family Medicine
DX: E03.9 Hypothyroidism, unspecified (principal); F17.221 Nicotine dependence, chewing tobacco, in remission; R41.3 Other amnesia; E55.9 Vitamin D deficiency, unspecified; F10.90 Alcohol use, unspecified, uncomplicated; Z98.84 Bariatric surgery status; R06.09 Other forms of dyspnea

== ENCOUNTER → 2024-06-28 | Outpatient (CLI) | payer MEDICARE, MEDICAID | LOC: M SOG 07:56 | PROVIDERS: ATTEND Physician Assistant | DX: S52.301D Unspecified fracture of shaft of right radius, subsequent encounter for closed fracture with routine healing (principal); S52.201D Unspecified fracture of shaft of right ulna, subsequent encounter for closed fracture with routine healing ==

== ENCOUNTER 2024-08-26 05:03 | Emergency (ER) | payer MEDICAID, MEDICARE ==
[~2024-08-26] VITALS: Ht 157.5 cm; Wt 52.1 kg
[~2024-08-26 05:03] MED LIST changes: -BUPR-597; +BUPR-766
[2024-08-26 05:08] VITALS: TEMP 98.5
[2024-08-26] MEDS ORDERED: LORazepam 2 MG TAB PO PRN (06:00)
[2024-08-26 06:30] VITALS: O2SAT 100
[2024-08-26 06:30] LABS: BASO # 0.1 10^3/uL (0.0-0.2); EOS # 0.1 10^3/uL (0.0-0.5); EOS % 0.8 % (0.0-3.0); HEMATOCRIT 41.9 % (36.0-47.0); HEMOGLOBIN 14.2 g/dl (12.0-15.5); LYMPH # 1.9 10^3/uL (1.5-5.0); LYMPH % 31.6 % (24.0-44.0); MEAN CORPUSCULAR HEMOGLOBIN 33.6 pg (27.0-33.0); MEAN CORPUSCULAR HGB CONC 33.9 g/dl (32.0-36.5); MEAN CORPUSCULAR VOLUME 99.1 fl (80.0-96.0); MONO # 0.4 10^3/uL (0.0-0.8); MONO % 6.9 % (2.0-8.0); NEUTROPHILS # 3.6 10^3/uL (1.5-8.5); NEUTROPHILS % 59.4 % (36.0-66.0); PLATELET COUNT, AUTOMATED 349 10^3/uL (150-450); RED BLOOD COUNT 4.23 10^6/uL (4.00-5.40); WHITE BLOOD COUNT 6.1 10^3/uL (4.0-10.0)
[2024-08-26 06:36] VITALS: BP 137/87
[2024-08-26 06:52] LABS: ETHYL ALCOHOL (ETHANOL) 0.004 % (0.000-0.010)
[2024-08-26] MEDS: THIAMINE 100 MG TAB PO SCH (06:52)
[2024-08-26] MEDS: NS (Normal Saline) 0.9% 1,000 ML IV ONE (06:52)
[2024-08-26 06:54] LABS: SALICYLATE LEVEL < 3.0 MG/DL (<30)
[2024-08-26 06:57] LABS: ALBUMIN 3.7 G/DL (3.2-5.2); ALKALINE PHOSPHATASE 114 U/L (35-104); ALT/SGPT 59 U/L (7.0-40); AST/SGOT 60 U/L (<34); BILIRUBIN,DIRECT 0.2 MG/DL (<0.4); BILIRUBIN,TOTAL 0.6 MG/DL (0.3-1.2); BLOOD UREA NITROGEN 7 MG/DL (9-23); CALCIUM LEVEL 8.8 MG/DL (8.5-10.1); CARBON DIOXIDE LEVEL 25 MMOL/L (20-31); CHLORIDE LEVEL 104 MMOL/L (98-107); CREATININE FOR GFR 0.49 MG/DL (0.55-1.30); GLOMERULAR FILTRATION RATE > 90.0 (>51); GLUCOSE, FASTING 103 MG/DL (60-100); POTASSIUM SERUM 3.5 MMOL/L (3.5-5.1); SODIUM LEVEL 140 MMOL/L (136-145); THYROID STIMULATING HORMONE 9.237 uIU/ML (0.55-4.78); TOTAL PROTEIN 6.5 G/DL (5.7-8.2)
[2024-08-26 06:58] LABS: CPK CREATINE PHOSPHOKINASE 153 U/L (34-145)
[2024-08-26 07:03] LABS: BARBITURATES URINE NEGATIVE (NEGATIVE); COCAINE METABOLITE URINE NEGATIVE (NEGATIVE); METHADONE URINE NEGATIVE (NEGATIVE)
[2024-08-26 07:04] LABS: BENZODIAZEPINES URINE NEGATIVE (NEGATIVE); OPIATES URINE NEGATIVE (NEGATIVE); PHENCYCLIDINE URINE NEGATIVE (NEGATIVE)
[2024-08-26 07:18] LABS: AMPHETAMINES LEVEL URINE POSITIVE (NEGATIVE); CANNABINOIDS URINE POSITIVE (NEGATIVE)
[2024-08-26] MEDS ORDERED: LORazepam 2 MG/ML 1ML VIAL IV STA (07:24)
[2024-08-26 08:33] LABS: HEPATITIS B SURFACE ANTIGEN NEGATIVE (NEGATIVE)
[2024-08-26 08:54] LABS: HEPATITIS C VIRUS ABY INDEX 0.04 INDEX (<0.8)
[2024-08-26 08:55] LABS: HEPATITIS B CORE ANTIBODY IGM NEGATIVE (NEGATIVE)
[2024-08-26] MEDS ORDERED: FOLIC ACID 1MG TAB PO SCH (09:00)
[2024-08-26] MEDS ORDERED: MULTIVITAMINS/MINERALS THERAP 1 TAB PO SCH (09:00)
[2024-08-26] MEDS ORDERED: GABA-284 PO (15:27)
[2024-08-26] MEDS ORDERED: NICO21PAT TOP (15:27)
[2024-08-26] MEDS ORDERED: TRAZ-257 PO (15:27)
[2024-08-26] MEDS ORDERED: PARO40TA3 PO (15:27)
== END 2024-08-26 09:36 | disposition left against medical advice (07) ==
LOC: M ED 05:03
DX: R41.82 Altered mental status, unspecified (principal); I45.81 Long QT syndrome; E03.9 Hypothyroidism, unspecified; K21.9 Gastro-esophageal reflux disease without esophagitis; F17.210 Nicotine dependence, cigarettes, uncomplicated; F10.10 Alcohol abuse, uncomplicated; F15.10 Other stimulant abuse, uncomplicated; Z88.6 Allergy status to analgesic agent; Z79.51 Long term (current) use of inhaled steroids; Z79.899 Other long term (current) drug therapy; Z53.9 Procedure and treatment not carried out, unspecified reason

== ENCOUNTER 2024-08-26 10:13 | Inpatient (IN) | payer MEDICARE ==
[~2024-08-26] VITALS: Ht 157.5 cm; Wt 51.5 kg
[2024-08-26 10:51] LABS: HEMATOCRIT 45.2 % (36.0-47.0); HEMOGLOBIN 15.3 g/dl (12.0-15.5); MEAN CORPUSCULAR HEMOGLOBIN 33.6 pg (27.0-33.0); MEAN CORPUSCULAR HGB CONC 33.8 g/dl (32.0-36.5); MEAN CORPUSCULAR VOLUME 99.3 fl (80.0-96.0); PLATELET COUNT, AUTOMATED 371 10^3/uL (150-450); RED BLOOD COUNT 4.55 10^6/uL (4.00-5.40); WHITE BLOOD COUNT 6.8 10^3/uL (4.0-10.0)
[2024-08-26 11:11] LABS: BARBITURATES URINE NEGATIVE (NEGATIVE); BENZODIAZEPINES URINE NEGATIVE (NEGATIVE); COCAINE METABOLITE URINE NEGATIVE (NEGATIVE); METHADONE URINE NEGATIVE (NEGATIVE); OPIATES URINE NEGATIVE (NEGATIVE); PHENCYCLIDINE URINE NEGATIVE (NEGATIVE)
[2024-08-26 11:12] LABS: AMPHETAMINES LEVEL URINE POSITIVE (NEGATIVE); CANNABINOIDS URINE POSITIVE (NEGATIVE)
[2024-08-26 11:14] LABS: ETHYL ALCOHOL (ETHANOL) 0.005 % (0.000-0.010)
[2024-08-26 11:16] LABS: SALICYLATE LEVEL < 3.0 MG/DL (<30)
[2024-08-26 11:23] LABS: ALBUMIN 3.9 G/DL (3.2-5.2); ALKALINE PHOSPHATASE 123 U/L (35-104); ALT/SGPT 60 U/L (7.0-40); AST/SGOT 53 U/L (<34); BILIRUBIN,DIRECT 0.2 MG/DL (<0.4); BILIRUBIN,TOTAL 0.8 MG/DL (0.3-1.2); BLOOD UREA NITROGEN 8 MG/DL (9-23); CALCIUM LEVEL 9.1 MG/DL (8.5-10.1); CARBON DIOXIDE LEVEL 27 MMOL/L (20-31); CHLORIDE LEVEL 104 MMOL/L (98-107); GLOMERULAR FILTRATION RATE > 90.0 (>51); GLUCOSE, FASTING 107 MG/DL (60-100); POTASSIUM SERUM 3.6 MMOL/L (3.5-5.1); SODIUM LEVEL 141 MMOL/L (136-145); THYROID STIMULATING HORMONE 8.077 uIU/ML (0.55-4.78)
[2024-08-26] MEDS: LORazepam 1 MG TAB PO STA (12:51)
[2024-08-26] MEDS ORDERED: NICO21PAT TOP (15:27)
[2024-08-26] MEDS ORDERED: PARO40TA3 PO (15:27)
[2024-08-26] MEDS ORDERED: TRAZ-257 PO (15:27)
[2024-08-26] MEDS ORDERED: GABA-284 PO (15:27)
[2024-08-26] MEDS ORDERED: HOME MED LIST COMPLETE! XX SCH (15:30)
[2024-08-26] MEDS ORDERED: ALBUTEROL SULFATE 2.5MG/0.5ML INH CONCENTRATE NEB SOLN INH PRN (16:00)
[2024-08-26] MEDS ORDERED: diphenhydrAMINE 25MG CAP PO PRN (16:00)
[2024-08-26] MEDS ORDERED: IBUPROFEN 400MG TAB PO PRN (16:00)
[2024-08-26] MEDS ORDERED: MOM 30ML SUSPENSION UDC PO PRN (16:00)
[2024-08-26] MEDS ORDERED: OLANZapine ORAL DISINTEGRATING TAB 5MG PO PRN (16:00)
[2024-08-26] MEDS ORDERED: ALBUTEROL 90 MCG/ACT 8GM HFA INHALER INH PRN (16:00)
[2024-08-26] MEDS ORDERED: traZODone 50 MG TAB PO PRN (16:00)
[2024-08-26] MEDS ORDERED: MAALOX 30 ML SUSP *UDC PO PRN (16:00)
[2024-08-26] MEDS: rOPINIRole 1MG TAB PO SCH (21:10)
[2024-08-26] MEDS: GABAPENTIN 400MG CAP PO SCH (21:10)
[2024-08-26] MEDS: busPIRone 5 MG TAB PO SCH (21:10)
[2024-08-27] VITALS (8 sets, daily range): BP systolic 70–124; BP diastolic 52–74; TEMP 96.8–98.3; O2SAT 91–99
[2024-08-27] MEDS: LEVOTHYROXINE 25MCG TABLET (0.025MG) PO SCH (06:17)
[2024-08-27] MEDS: LORazepam 2 MG TAB PO PRN (09:05)
[2024-08-27] MEDS: CETIRIZINE (ZyrTEC) 10 MG TAB PO SCH (09:34)
[2024-08-27] MEDS: VITAMIN D 1,000 INTERNATIONAL UNITS TABLET PO SCH (09:34)
[2024-08-27] MEDS: THIAMINE 100 MG TAB PO SCH (09:35)
[2024-08-27] MEDS: NALTREXONE 50 MG TAB PO SCH (09:35)
[2024-08-27] MEDS: PANTOPRAZOLE 40MG TAB (PROTONIX) PO SCH (09:36)
[2024-08-27] MEDS: MULTIVITAMINS/MINERALS THERAP 1 TAB PO SCH (09:36)
[2024-08-27] MEDS: FOLIC ACID 1MG TAB PO SCH (09:36)
[2024-08-27] MEDS: NICOTINE 21MG/24HR 1 EA TRANSDERMAL TOP SCH (09:38)
[2024-08-27 11:08] LABS: FREE T4 1.01 NG/DL (0.89-1.76)
[2024-08-27] MEDS: ACETAMINOPHEN 325 MG TAB PO PRN (16:49)
[2024-08-27] MEDS: traZODone 100 MG TAB PO PRN (20:18)
[2024-08-28 04:26] VITALS: BP 100/64
[2024-08-28 04:27] VITALS: BP 100/64; TEMP 97.6; O2SAT 99
[2024-08-28 09:47] VITALS: BP 123/75; TEMP 98.4; O2SAT 100
[2024-08-28 12:27] VITALS: BP 102/64; TEMP 98.8; O2SAT 100
[2024-08-28] MEDS: PARoxetine 20MG TABLET PO SCH (14:04)
[2024-08-28 18:07] VITALS: BP 122/68; TEMP 97.8
[2024-08-28] MEDS: OLANZapine 2.5MG TABLET PO SCH (20:15)
[2024-08-29 06:33] VITALS: BP 94/54; TEMP 97.9; O2SAT 97
[2024-08-29 07:38] VITALS: BP 108/57; TEMP 98.2; O2SAT 97
[2024-08-29] MEDS ORDERED: FOLI1TAB11 PO (07:45)
[2024-08-29] MEDS ORDERED: THIA100TA PO (07:45)
[2024-08-29] MEDS ORDERED: OLAN2.5T53 PO (07:45)
== END 2024-08-29 10:53 | disposition home or self-care (01) | DRG 897 ==
LOC: M ED 10:13 → M ED INP 13:59 → M PSY 15:15
PROVIDERS: ADMIT Psychiatry & Neurology Psychiatry; ATTEND Psychiatry & Neurology Psychiatry
DX: F15.159 Other stimulant abuse with stimulant-induced psychotic disorder, unspecified (principal); F29 Unspecified psychosis not due to a substance or known physiological condition; F41.9 Anxiety disorder, unspecified; F10.239 Alcohol dependence with withdrawal, unspecified; F43.23 Adjustment disorder with mixed anxiety and depressed mood; D50.9 Iron deficiency anemia, unspecified; J45.909 Unspecified asthma, uncomplicated; G89.29 Other chronic pain; K70.9 Alcoholic liver disease, unspecified; M62.81 Muscle weakness (generalized); K21.9 Gastro-esophageal reflux disease without esophagitis; G25.81 Restless legs syndrome; J44.9 Chronic obstructive pulmonary disease, unspecified; E53.8 Deficiency of other specified B group vitamins; E55.9 Vitamin D deficiency, unspecified; Z79.890 Hormone replacement therapy; Z79.899 Other long term (current) drug therapy; Z88.6 Allergy status to analgesic agent; Z98.84 Bariatric surgery status

== ENCOUNTER → 2024-08-30 | Outpatient (CLI) | payer MEDICARE ==
[~2024-08-30] MED LIST changes: +FOLI1TAB11 PO; +NICO21PAT TOP; +OLAN2.5T53 PO; +PARO40TA3 PO; +THIA100TA PO; +TRAZ-257 PO
== END ==
LOC: M SOG 07:05
PROVIDERS: ATTEND Physician Assistant
DX: S52.301D Unspecified fracture of shaft of right radius, subsequent encounter for closed fracture with routine healing (principal); S52.201D Unspecified fracture of shaft of right ulna, subsequent encounter for closed fracture with routine healing; Z53.9 Procedure and treatment not carried out, unspecified reason

== ENCOUNTER → 2024-09-10 | Outpatient (CLI) | payer MEDICARE | LOC: M PLALAB 15:25 | PROVIDERS: ATTEND Physician Assistant Medical | DX: M54.32 Sciatica, left side (principal) ==

== ENCOUNTER 2024-11-12 07:41 | Outpatient (RCR) | payer MEDICARE ==
[~2024-11-12 07:41] MED LIST changes: -RA T500C2 PO; +TURM500C10 PO
== END 2024-11-22 ==
LOC: M PT 07:41
PROVIDERS: ATTEND Family Medicine
DX: M54.32 Sciatica, left side (principal)

== ENCOUNTER 2024-12-10 08:20 | Outpatient (RCR) | payer MEDICARE ==
[~2024-12-10 08:20] MED LIST changes: -IBUP-1022 PO; +IBUP600T42 PO
== END 2024-12-23 ==
LOC: M PT 08:20
PROVIDERS: ATTEND Family Medicine
DX: M54.32 Sciatica, left side (principal)

== ENCOUNTER → 2025-01-10 | Outpatient (CLI) | payer MEDICARE | LOC: M PLARAD 12-20 09:11 → M PLAIMG 07:41 | PROVIDERS: ATTEND Physician Assistant Medical | DX: M54.32 Sciatica, left side (principal); M99.53 Intervertebral disc stenosis of neural canal of lumbar region; M51.369 Other intervertebral disc degeneration, lumbar region without mention of lumbar back pain or lower extremity pain ==

== ENCOUNTER 2025-03-15 06:42 | Day surgery (SDC) | payer MEDICARE ==
[~2025-03-15] VITALS: Ht 157.5 cm; Wt 48.7 kg
[~2025-03-15 06:42] MED LIST changes: +ADVA230A INH; +BUPR-363 PO; -BUPR75TA5 PO; +BUSP30TA PO; +CYCL-707 PO; +MELA10TA22 PO; +ONDA-83 PO; -RA M10TA PO; +ZOLO100T PO
[2025-03-15] MEDS ORDERED: LIDOCAINE 2% 100 MG/5 ML SDV (FOR ANES.) As Ordered ONE (07:56)
[2025-03-15] MEDS ORDERED: PHENYLephrine 500MCG 5ML (100MCG/ML) SYRINGE As Ordered ONE (08:06)
[2025-03-15 08:17] VITALS: TEMP 96.7
[2025-03-15 08:30] VITALS: BP 129/69; O2SAT 96
== END 2025-03-15 08:35 | disposition home or self-care (01) ==
LOC: M OPP 06:42
PROVIDERS: ATTEND Surgery
DX: K25.9 Gastric ulcer, unspecified as acute or chronic, without hemorrhage or perforation (principal); R10.13 Epigastric pain; Z98.84 Bariatric surgery status; Z88.6 Allergy status to analgesic agent; Z79.899 Other long term (current) drug therapy; J44.9 Chronic obstructive pulmonary disease, unspecified; F17.210 Nicotine dependence, cigarettes, uncomplicated
CPT/HCPCS: 43239; 88305; J2371; J3010

== ENCOUNTER → 2025-04-03 | Outpatient (CLI) | payer MEDICAID, MEDICARE ==
[~2025-04-03] MED LIST changes: -MELA10TA22 PO; +MELA10TA30 PO
== END ==
LOC: M RAD 10:37
PROVIDERS: ATTEND Neurological Surgery
DX: M43.16 Spondylolisthesis, lumbar region (principal); M47.896 Other spondylosis, lumbar region